=== PATIENT | female | born 1945 | race Caucasian/White ===

== ENCOUNTER 2020-06-07 09:00 | Outpatient (REF) | payer MEDICARE, SELFPAY ==
--- NOTE | 2020-06-07 | US_ITS ---
EXAMINATION: US RETROPERITONEAL LIMITED (AORTA) CLINICAL INFORMATION: AAA. COMPARISON: 02/24/2019 TECHNIQUE: Powell-scale, color Doppler and spectral Doppler evaluation of the abdominal aorta. FINDINGS: Mild to moderate echogenic epistatic plaque is seen, most pronounced in the infrarenal segment. The measurements of the aorta in maximum AP and transverse dimensions respectively are as follows: Proximal: 2.7 x 2.6 cm. Mid: 2.8 x 2.7 cm. Distal: 4.9 x 5.7 cm. (Previously 4.3 x 4.3 cm). Prominent noncalcified plaque is seen. The patent lumen measures up to 2.0 cm displaced to the right side. PSV: 33.0 cm/s. The measurements of the common iliac arteries in maximum AP and TRV dimensions are as follows: Right Common Iliac Artery: 0.71 cm AP: .73 TRV. Left Common Iliac Artery: 1.1 cm AP: 1.1 TRV. IMPRESSION: Interval increase in size of 5.7 cm (previously 4.3 cm) infrarenal abdominal aortic aneurysm with prominent noncalcified plaque and patent lumen measuring up to 2.0 cm without significant interval change.
== END 2020-06-07 09:01 | disposition home or self-care (01) ==
LOC: HO.HMGCX 09:00
PROVIDERS: PCP Internal Medicine; Visit Provider Surgery Vascular Surgery
DX: I71.4 Abdominal aortic aneurysm, without rupture (principal)
CPT/HCPCS: 76775

== ENCOUNTER → 2020-06-29 12:59 | Outpatient (BNVA) | payer MEDICARE, SELFPAY | PROVIDERS: PCP Internal Medicine; Visit Provider Surgery Vascular Surgery | DX: I71.4 Abdominal aortic aneurysm, without rupture (principal) | CPT/HCPCS: 99213 ==

== ENCOUNTER 2020-07-28 09:19 | Outpatient (REF) | payer MEDICARE, SELFPAY ==
[2020-07-28 11:49] LABS: Blood Urea Nitrogen 14 mg/dL (9-16); Estimated Glomerular Filt Rate > 60
== END 2020-07-28 09:20 | disposition home or self-care (01) ==
LOC: HO.HMGCLDS 09:19
PROVIDERS: PCP Internal Medicine; Visit Provider Surgery Vascular Surgery
DX: I71.4 Abdominal aortic aneurysm, without rupture (principal)
CPT/HCPCS: 82565; 84520

== ENCOUNTER 2020-08-05 13:40 | Outpatient (REF) | payer MEDICARE, SELFPAY ==
--- NOTE | 2020-08-05 13:44 | CT_ITS ---
STUDY PERFORMED: CTA ABDOMEN AND PELVIS WITHOUT AND WITH CONTRAST HISTORY: Abdominal aortic aneurysm. DESCRIPTION: Routine abdomen and pelvis CTA protocol with contrast was performed. 80 mL of Omnipaque 350 was administered. 3D POSTPROCESSING: Multiple 3-D angiographic images were processed from the initial data set by the interventional technologist at the modality workstation under concurrent physician supervision. DOSE LOWERING TECHNIQUES: This CT examination was performed using dose optimization techniques as appropriate, variously including the following: - Automated exposure control - Adjustment of mA and/or kV according to patient size (this includes techniques or standardized protocols for targeted exams where dose is matched to indication/reason for exam; i.e. extremities or head) - Use of iterative reconstruction technique DLP: 279 mGycm. COMPARISON: Aortic ultrasound 06/07/2020, CT abdomen and pelvis 07/25/2017. FINDINGS: VASCULAR: ABDOMINAL AORTA: The upper abdominal aorta is normal in caliber. There is an infrarenal abdominal aortic aneurysm measuring 5.5 x 4.8 cm in maximum transverse dimension. The aneurysm extends to the aortic bifurcation but does not involve the common iliac arteries. The aneurysm neck measures about 8 mm below the lowest (left) renal artery. About three quarters of the lumen is thrombosed. The degree of mural thrombus is similar to the prior exam. The maximum diameter of the aorta on the prior exam was 4.2 x 4.1 cm. RIGHT LOWER EXTREMITY: Mild to moderate atherosclerotic disease. LEFT LOWER EXTREMITY: Mild to moderate atherosclerotic disease. CELIOMESENTERIC ARTERIES: The celiac and superior mesenteric arteries are patent with mild atherosclerotic disease. The inferior mesenteric artery occluded at the origin off the thrombus in the aneurysm but then reconstitutes distally. RENAL ARTERIES: The right renal artery is patent with mild disease. The left renal artery is patent with mild disease. NONVASCULAR: Lung Bases: Stable 4 mm polygonal nodule at right lung base. Liver, Gallbladder and Biliary Tree: Small cyst in the left hepatic lobe. No biliary ductal dilatation. The gallbladder is unremarkable with no evidence of radiopaque gallstones, gallbladder wall thickening, or obvious pericholecystic inflammatory changes. Pancreas: Unremarkable. Spleen: Unremarkable. Adrenal Glands: Unremarkable. Kidneys and Ureters: Cortical thinning small bilateral cortical hypodensities are too small to characterize but most likely cysts. These are not significantly changed allowing for differences in enhancement. There is focal scarring in the lower right kidney that has evolved from the infarct seen on the prior study. Bladder: Unremarkable. Gastrointestinal Tract: Large hiatal hernia. Small bowel normal in caliber. Mild colonic diverticulosis. Abdominal Wall: No significant hernia is appreciated. Lymph Nodes: No adenopathy. Pelvic Viscera: Unremarkable. Osseous Structures: Degenerative changes in the spine. CT/CT angio abdomen pelvis IMPRESSION: Infrarenal abdominal aortic aneurysm measuring 5.5 x 4.8 cm increased from 4.2 x 4.1 cm on 07/25/2017. No periaortic hemorrhage.
[2020-08-05] MEDS: iohexoL 350 MG/ML 100 ML INFUS..BTL IV (14:33)
== END 2020-08-05 13:41 | disposition home or self-care (01) ==
LOC: HO.CT 13:40
PROVIDERS: Visit Provider Surgery Vascular Surgery
DX: I71.4 Abdominal aortic aneurysm, without rupture (principal)
CPT/HCPCS: 74174; Q9967

== ENCOUNTER → 2020-08-12 13:09 | Outpatient (BNVA) | payer MEDICARE, SELFPAY | PROVIDERS: PCP Internal Medicine; Visit Provider Surgery Vascular Surgery | DX: I71.4 Abdominal aortic aneurysm, without rupture (principal) | CPT/HCPCS: 99212 ==

== ENCOUNTER → 2020-08-17 12:54 | Outpatient (BNVA) | payer MEDICARE, SELFPAY | PROVIDERS: PCP Internal Medicine; Visit Provider Internal Medicine | DX: Z01.810 Encounter for preprocedural cardiovascular examination (principal); I25.10 Atherosclerotic heart disease of native coronary artery without angina pectoris; I71.4 Abdominal aortic aneurysm, without rupture; F17.200 Nicotine dependence, unspecified, uncomplicated | CPT/HCPCS: 93005; 99212 ==

== ENCOUNTER → 2020-08-20 07:22 | Outpatient (REF) | payer MEDICARE, SELFPAY ==
--- NOTE | 2020-08-20 07:28 | CA_ITS ---
Transthoracic Echocardiogram Patient (Last, First, Middle): Liza Montague, Gender: Female Date of : 1945 Age: 75 Procedure Date: 08/20/2020 Procedure Type: Transthoracic Echocardiogram Location: OP Height: 162.56 cm Weight: 69.4 kg BSA: 1.75 m2 Heart Rate: bpm BP: 102 / 68 mmHg Stock Sheets Cleaner Inspector: Shazia MD: Cheng Velasquez MD Symptoms: I25.10 - Atherosclerotic heart disease of lime coronary artery without angina pectoris Conclusions: - Normal left ventricular size, thickness, and systolic function. The visually estimated ejection fraction is between 60-65%. - E/E prime ratio is between 8 and 15 consistent with indeterminate filling pressures. - The basal inferior segment is hypokinetic. - Normal right ventricular cavity size and systolic function. - No significant valvular or pericardial pathology. Findings Left Ventricle Normal left ventricular size, thickness, and systolic function. The visually estimated ejection fraction is between 60-65%. There is evidence of regional wall motion abnormalities. Abnormal diastolic function is noted. Spectral Doppler is indicative of an impaired relaxation filling pattern. E/E prime ratio is between 8 and 15 consistent with indeterminate filling pressures. Wall Motion Rest Echo Findings The basal inferior segment is hypokinetic. Right Ventricle Normal right ventricular cavity size and systolic function. Atria The left atrium is normal in size. There is no evidence of interatrial shunt by color Doppler. The right atrium is normal in size. Aortic Valve There is a normal trileaflet aortic valve. There is mild thickening of the aortic valve. There is no aortic valve stenosis. There is no aortic valve regurgitation. Mitral Valve Normal mitral valve structure and function. There is no mitral valve regurgitation. There is no mitral valve stenosis. Pulmonic Valve Normal pulmonic valve structure and function. Tricuspid Valve Normal tricuspid valve structure and function. There is no tricuspid valve regurgitation. Tricuspid regurgitation envelope is inadequate for calculation of right ventricular systolic pressure. Normal right atrial pressure. Great Vessels All visible segments of the aorta are normal in size. The visualized portions of the pulmonary artery and branches are normal. Venous The inferior vena cava is normal in size and collapses greater than 50% with inspiration. Pericardium/Pleural There is no evidence of pericardial effusion. Prior Study Comparison Changes noted compared to prior study dated: 03/25/2019. EF 60-65% (was 50 55%), improvement in RWMA in the mid inferior and inferolateral rivera. Measurements 2D Linear Measurements RVIDd: 2.72 RVIDd Index: 1.55 IVSd: 0.81 0.6-0.9/0.6-1.0 cm LVIDd: 5.02 3.9-5.3/4.2-5.9 cm LVIDd Index: 2.87 2.4-3.2/2.2-3.1 cm/m2 LVIDs: 3.31 2.0-3.6 cm LVPWd: 0.79 0.7-1.1 cm Ao Root: 2.90 2.1-3.5 cm LA Diam: 4.20 2.7-3.8/3.0-4.0 cm LAIDs Index: 2.40 1.5-2.3 cm/m2 LV Mass: 170.57 67-162/88-224 g LV Mass Index: 97.47 43-95/49-115 g/m2 LVOT Diam: 2.30 3.0+(-)1.3 cm 2D Systolic Function EF 4C: 48.30 >55% EF 2C: 71.00 >55% EF BiP: 60.40 >55% Mitral Valve MV Pk E: 0.69 MV PK A: 1.03 MV Decel Time: 181.00 E/A: 0.70 E'Lateral: 5.55 E'Medial: 4.79 E/E' Med: 14.40 E/E' Lat: 12.50 Aortic Valve AoV Pk Walter: 1.55 AoV Mn Walter: 1.15 AoV VTI: 0.29 AoV Pk Grad: 10.00 Aov Mn Grad: 6.00 DENA Cont.VTI: 3.23 LVOT LVOT Pk Walter: 1.19 LVOT Mn Walter: 0.78 LVOT VTI: 0.22 LVOT Pk Grad: 6.00 LVOT Mn Grad: 3.00 LVOT Diam: 2.30 LVOT Area: 4.15 Diastolic Function MV Pk E: 0.69 MV Pk A: 1.03 E/A: 0.70 E'Medial: 4.79 E/E' Med: 14.40 E' Laterial: 5.55 E/E' Lat: 12.50 Tricuspid Valve TR Pk Walter: 2.56 TR Pk Grad: 26.00 RA Press: 3.00 Great Vessels Aorta Ao Root-2D: 2.90 2.0-3.7 cm Ao Asc: 3.10 2.1-3.4 cm Ao Arch: 2.30 Updated in Other Vendor System with Status of Final Marcell Roach MD electronically signed on 08/22/2020 1:18:53 PM with status of Final
--- NOTE | 2020-08-20 07:30 | CA_ITS ---
Acquisition Time: 2020-08-20 08:18:17 Total Exercise Time: 00:02:00 Test Indications: Z01.810 Medications: SEE CHART Protocol: LEXISCAN Max HR: 112 BPM 77% of Pred: 144 BPM Max BP: 120/070 mmHG Max Work Load: 1.0 METS Pharmacological stress test using Lexiscan while sitting. Pt denies any anginal sx. Feeling of lightheaded reversed with Aminophyline 75 mg IV. EKG with occ. PVC's, non-diagnostic for ischemia. Nuclear images to follow. Normotensive response to test. Test reviewed with Dr. Velasquez. Referred By: Cheng Velasquez Overread By: Hussein Fernandez
--- NOTE | 2020-08-20 08:16 | NM_ITS ---
Lexiscan Myocardial perfusion study Indication: Preoperative cardiac vascular evaluation Technique: The patient was brought in for a Lexiscan perfusion study on 08/20/2020 and was injected 0.4 mg of Lexiscan intravenously. Within a minute of this injection 25 mCi of sestamibi was given intravenously. Images were obtained using the SPECT gamma camera interlaced with the gating device. Images were obtained in supine position. Resting perfusion study was performed on 08/23/2020. Patient was administered 25 mCi of sestamibi intravenously at rest. Images were then obtained in supine position. Total DLP 54mGy-cm. Images were processed with the software and compared side to side in short axis, horizontal long axis and vertical long axis views. Findings: Raw acquisition was reviewed. The stress perfusion study showed diminished tracer uptake in the basal lateral and anterolateral wall. With CT attenuation correction, there is improvement which may indicate a component of soft tissue attenuation artifact. The gated study shows normal LV systolic function with calculated LVEF of 58%. LV cavity is normal in size. The gated study shows diminished basal lateral wall thickening. Resting study shows diminished tracer uptake in the basal lateral wall and anterolateral wall. Some improvement with CT attenuation correction which may indicate a component of soft tissue artifact .Gating at rest reveals ejection fraction at 46%. The findings are consistent with no clear reversible defects. Fixed defect in the basal lateral/anterolateral wall which may indicate prior infarct but could also be component of soft tissue attenuation artifact.. MT/NM cardiolite stress test Impression: 1. Myocardial perfusion imaging study shows no definitive ischemia noted. Fixed defect in the basal lateral/anterolateral wall which may indicate a prior infarct, but there is also improvement with CT attenuation correction and hence soft tissue attenuation artifact is also possible. 2. Gated LVEF is 58% during stress; 46% during rest. Correlate with echocardiogram. 3. Transient ischemic dilatation not present. EKG component of the test reported separately.
== END ==
LOC: HO.CARD 07:22
PROVIDERS: Visit Provider Internal Medicine
DX: Z01.810 Encounter for preprocedural cardiovascular examination (principal); I25.10 Atherosclerotic heart disease of native coronary artery without angina pectoris
CPT/HCPCS: 78452; 93017; 93306; A9500; J0280; J2785

== ENCOUNTER → 2020-08-24 09:24 | Outpatient (BNVA) | payer MEDICARE, SELFPAY | PROVIDERS: PCP Internal Medicine; Visit Provider Internal Medicine | DX: Z13.89 Encounter for screening for other disorder (principal) | CPT/HCPCS: Q3014 ==

== ENCOUNTER 2020-08-30 06:28 | Inpatient (IN) | payer MEDICARE, SELFPAY ==
--- NOTE | 2020-08-25 10:56 | P.CONAN_ITS ---
Documented by User: Dulce Saul 08/25/20 12:50 HPI - Anesthesia Eval Consult details Narrative: 75yo F for Aortic Endovascular Repair (AAA 5.5x4.8cm) Per cardiology, intermed to high risk. Based on these tests, she has coronary disease in different distributions. However, she has no active symptoms at this time. With regard to proceeding with the endovascular aortic repair, she will be at intermediate to high risk. Discussed in detail regarding juan-operative cardiac risks including myocardial infarction and she understands. May proceed as planned. Labs pending 08/25/20 [facility] Past Medical History Medical History AAA (abdominal aortic aneurysm) without rupture Atherosclerotic cardiovascular disease DDD (degenerative disc disease), cervical NSTEMI (non-ST elevated myocardial infarction) On beta kristen at home Osteoporosis Rheumatoid arthritis Seasonal allergies Smoking Family History Family History Father No problems noted. Mother No problems noted. Family history of problems with anesthesia: No Surgical History Surgical History H/O left wrist surgery History of hand surgery Hx of endoscopy History of Problems with Anesthesia: No Social History Social History Are you a primary health care social worker to a significant other at home: No Do you presently have visiting nurse or other home services: No Smoking Status: Current every day smoker Packs Per Day: 0.5 Cigarettes Per Day: 10.0 Years Smoked: 60 Smoked in Last 30 Days: Yes Patient Interested in Nicotine Replacement: No Patient Given Instructions on How to Stop Smoking: Yes Date Education Initiated: 08/25/20 Second Hand Smoke Exposure: No Use of substances other than those prescribed or required for medical reasons: No Have you been hit, kicked, punched, or otherwise hurt by someone within the past year? If so, by whom?: No [employer] Healthcare Practices: Episcopalian Advance Directives: No Advance Directives Information Provided: No Advance Directives on File: No Recently lost weight without trying: No Narrative Narrative: No recent illness. >4 mets with activity/ADLs/housework Meds Allergies Allergy/AdvReac Type Severity Reaction Status Date / Time alendronate sodium [Fosamax] AdvReac Unknown syncope Verified 08/25/20 12:10 Home Medications Medication Instructions Recorded Confirmed Type aspirin 81 mg tablet,delayed 81 mg PO DAILY 06/29/20 08/25/20 History release folic acid 1 mg tablet 1 mg PO DAILY 06/29/20 08/25/20 History omeprazole 20 mg capsule,delayed 20 mg PO DAILY 06/29/20 08/25/20 History release atorvastatin 80 mg tablet 80 mg PO DAILY 08/17/20 08/25/20 History metoprolol tartrate 25 mg tablet 25 mg PO BID 08/17/20 08/25/20 History methotrexate sodium 2.5 mg tablet 15 mg PO QWEEK 08/24/20 08/25/20 History tiotropium 2.5 mcg-olodaterol 2.5 2 puff PO DAILY 08/24/20 08/25/20 History mcg/actuation mist for inhalation calcium carbonate-vitamin D3 2 tab PO DAILY 08/25/20 08/25/20 History [Calcium 600 + D(3)] cholecalciferol (vitamin D3) 25 mcg PO DAILY 08/25/20 08/25/20 History [Vitamin D3] Exam Exam Date and Time: August 25, 2020 1056 Narrative Narrative: EKG 08/17/20: NSR @ 79, ? LAE ECHO 08/20/20: - Normal left ventricular size, thickness, and systolic function. The visually estimated ejection fraction is between 60-65%. - E/E prime ratio is between 8 and 15 consistent with indeterminate filling pressures. - The basal inferior segment is hypokinetic. - Normal right ventricular cavity size and systolic function. - No significant valvular or pericardial pathology. Cardiolite Stress Test 08/20/20: 1. Myocardial perfusion imaging study shows no definitive ischemia noted. Fixed defect in the basal lateral/anterolateral wall which may indicate a prior infarct, but there is also improvement with CT attenuation correction and hence soft tissue attenuation artifact is also possible. 2. Gated LVEF is 58% during stress; 46% during rest. Correlate with echocardiogram. 3. Transient ischemic dilatation not present. Airway Mallampati Class: II TM Dist: >3cm Neck ROM: Full Denture: Upper Partial: Lower Loose/Missing/Broken Teeth: No (Remaining lower teeth intact/stable) Heart: RRR Lungs: CTAB Assessment and Plan Assessment Anesthesia Assessment: Anesthesia Plan Discussed (Discussed high risk), Smoking Cess. Discussed and PAT Visit Documented by User: Bushra Carvajal 08/30/20 08:18 [facility] Past Medical History Medical History AAA (abdominal aortic aneurysm) without rupture Atherosclerotic cardiovascular disease DDD (degenerative disc disease), cervical NSTEMI (non-ST elevated myocardial infarction) On beta kristen at home Osteoporosis Rheumatoid arthritis Seasonal allergies Smoking Family History Family History Father No problems noted. Mother No problems noted. Surgical History Surgical History H/O left wrist surgery History of hand surgery Hx of endoscopy Social History Social History Are you a primary health care social worker to a significant other at home: No Do you presently have visiting nurse or other home services: No Smoking Status: Current every day smoker Packs Per Day: 0.5 Cigarettes Per Day: 10.0 Years Smoked: 60 Smoked in Last 30 Days: Yes Patient Interested in Nicotine Replacement: No Patient Given Instructions on How to Stop Smoking: Yes Date Education Initiated: 08/25/20 Second Hand Smoke Exposure: No Use of substances other than those prescribed or required for medical reasons: No Have you been hit, kicked, punched, or otherwise hurt by someone within the past year? If so, by whom?: No [employer] Healthcare Practices: Episcopalian Advance Directives: No Advance Directives Information Provided: No Advance Directives on File: No Recently lost weight without trying: No Meds Allergies Allergy/AdvReac Type Severity Reaction Status Date / Time alendronate sodium [Fosamax] AdvReac Unknown syncope Verified 08/25/20 12:10 Home Medications Medication Instructions Recorded Confirmed Type aspirin 81 mg tablet,delayed 81 mg PO DAILY 06/29/20 08/25/20 History release folic acid 1 mg tablet 1 mg PO DAILY 06/29/20 08/25/20 History omeprazole 20 mg capsule,delayed 20 mg PO DAILY 06/29/20 08/25/20 History release atorvastatin 80 mg tablet 80 mg PO DAILY 08/17/20 08/25/20 History metoprolol tartrate 25 mg tablet 25 mg PO BID 08/17/20 08/25/20 History methotrexate sodium 2.5 mg tablet 15 mg PO QWEEK 08/24/20 08/25/20 History tiotropium 2.5 mcg-olodaterol 2.5 2 puff PO DAILY 08/24/20 08/25/20 History mcg/actuation mist for inhalation calcium carbonate-vitamin D3 2 tab PO DAILY 08/25/20 08/25/20 History [Calcium 600 + D(3)] cholecalciferol (vitamin D3) 25 mcg PO DAILY 08/25/20 08/25/20 History [Vitamin D3] Assessment and Plan Assessment Anesthesia Assessment: Anesthesia Plan Discussed and Chart Reviewed Final Anesthetic Review NPO: Yes ASA Class: III Final Preanesthetic Review: Meds/Allgs Chart Reviewed, Consent Obtained/Reviewed and Anes Risks/Benef Reviewed Patient Risk: Intermediate Procedure Risk: Intermediate Anesthetic Plan Anesthetic Plan: GA Disposition: Standard PACU
[2020-08-25 12:15] VITALS: BP 136/82; PULSE 80; RESP 20; O2SAT 95; BMI 27.1
[2020-08-25 15:11] LABS: MANUAL DIFF FLAG NO
[2020-08-25 15:18] LABS: Basophils Percent Auto 0.3 % (0-2); Eosinophils Percent Auto 0.6 % (0-4); Hematocrit 44.7 % (37-47); Hemoglobin 14.2 g/dl (12.0-16.0); Imm Gran Abs Auto 0.01 X10*3/uL (0.00-0.03); Imm Gran Pct Auto 0.2 % (0.0-0.4); Lymphocytes Percent Auto 29.5 % (20-40); Mean Corpuscular HGB Conc 31.8 g/dl (31.0-35.0); Mean Corpuscular Hemoglobin 30.9 pg (27.0-33.0); Mean Corpuscular Volume 97.2 fL (80-98); Mean Platelet Volume 11.7 fL (9.4-12.3); Monocytes Absolute Auto 0.4 X10*3/uL (0.1-1.2); Monocytes Percent Auto 6.7 % (2-11); Neutrophils Absolute Auto 4.2 X10*3/uL (2.0-8.3); Neutrophils Percent Auto 62.7 % (45-73); Platelet Count 174 X10*3/uL (160-400); Red Cell Distribution Width 13.9 % (11.0-16.0); White Blood Count 6.6 X10*3/uL (4.8-10.8)
[2020-08-25 15:22] LABS: Prothrombin Time 12.4 SEC (10.8-13.0)
[2020-08-25 15:25] LABS: Partial Thromboplastin Time 28.7 SEC (24.1-38.0)
[2020-08-25 15:38] LABS: Anion Gap 11 (12-20); Blood Urea Nitrogen 14 mg/dL (9-16); Calcium 9.2 mg/dL (8.4-10.2); Carbon Dioxide 25 mmol/L (22-29); Chloride 104 mmol/L (96-108); Estimated Glomerular Filt Rate > 60; Glucose Fasting 88 mg/dL (60-99); Potassium 4.3 mmol/l (3.3-5.1); Sodium 136 mmol/L (135-145)
[2020-08-30] VITALS (26 sets, daily range): BP systolic 98–136; BP diastolic 45–74; PULSE 68–87; RESP 13–22; TEMP 36.3–37; O2SAT 92–99; BMI 29.3
--- NOTE | 2020-08-30 | ECG_ITS ---
Test Reason : POST OP Blood Pressure : / mmHG Vent. Rate : 073 BPM Atrial Rate : 073 BPM P-R Int : 156 ms QRS Dur : 076 ms QT Int : 376 ms P-R-T Axes : 038 029 045 degrees QTc Int : 414 ms Normal sinus rhythm with sinus arrhythmia Normal ECG When compared with ECG of 20-AUG-2018 12:41, Premature ventricular complexes are no longer Present Referred By: Kermit Goodwin Electronically Signed By:PAXTON DENNY
[2020-08-30 06:39] LABS: Prothrombin Time 12.4 SEC (10.8-13.0)
[2020-08-30 06:41] LABS: Partial Thromboplastin Time 28.5 SEC (24.1-38.0)
[2020-08-30 06:48] LABS: IDNOW Serial# 9DD0AD1C
[2020-08-30 06:49] LABS: COVID-19 Test Negative (Negative)
[2020-08-30 06:52] LABS: Anion Gap 13 (12-20); Blood Urea Nitrogen 15 mg/dL (9-16); Carbon Dioxide 23 mmol/L (22-29); Chloride 105 mmol/L (96-108); Creatinine Clr Calc Pharmacy 59.6; Estimated Glomerular Filt Rate > 60; Glucose Random 102 mg/dL (60-115); Potassium 4.3 mmol/l (3.3-5.1); Sodium 137 mmol/L (135-145)
[2020-08-30 06:53] LABS: Hematocrit 45.7 % (37-47); Hemoglobin 14.7 g/dl (12.0-16.0); Mean Corpuscular HGB Conc 32.2 g/dl (31.0-35.0); Mean Corpuscular Hemoglobin 31.4 pg (27.0-33.0); Mean Corpuscular Volume 97.6 fL (80-98); Mean Platelet Volume 10.9 fL (9.4-12.3); Platelet Count 181 X10*3/uL (160-400); Red Blood Count 4.68 X10*6/uL (4.20-5.50); White Blood Count 8.4 X10*3/uL (4.8-10.8)
[2020-08-30] MEDS: ceFAZolin Sodium/Dextrose,Iso 2 GM/50 ML PIGGYBACK IV ×2 (07:02→15:00)
[2020-08-30] MEDS: Lactated Ringers 1,000 ML 100 ML IVCONT (07:03)
--- NOTE | 2020-08-30 08:10 | P.CONAN_ITS ---
[facility] Past Medical History Medical History AAA (abdominal aortic aneurysm) without rupture Atherosclerotic cardiovascular disease DDD (degenerative disc disease), cervical NSTEMI (non-ST elevated myocardial infarction) On beta kristen at home Osteoporosis Rheumatoid arthritis Seasonal allergies Smoking Family History Family History Father No problems noted. Mother No problems noted. Surgical History Surgical History H/O left wrist surgery History of hand surgery Hx of endoscopy Social History Social History Are you a primary medicare insurance specialist to a significant other at home: No Do you presently have visiting nurse or other home services: No Smoking Status: Current every day smoker Packs Per Day: 0.5 Cigarettes Per Day: 10.0 Years Smoked: 60 Smoked in Last 30 Days: Yes Patient Interested in Nicotine Replacement: No Patient Given Instructions on How to Stop Smoking: Yes Date Education Initiated: 08/25/20 Second Hand Smoke Exposure: No Use of substances other than those prescribed or required for medical reasons: No Have you been hit, kicked, punched, or otherwise hurt by someone within the past year? If so, by whom?: No Sh[employer] Healthcare Practices: Sikhism Advance Directives: No Advance Directives Information Provided: No Advance Directives on File: No Recently lost weight without trying: No Meds Allergies Allergy/AdvReac Type Severity Reaction Status Date / Time alendronate sodium [Fosamax] AdvReac Unknown syncope Verified 08/25/20 12:10 Home Medications Medication Instructions Recorded Confirmed Type aspirin 81 mg tablet,delayed 81 mg PO DAILY 06/29/20 08/25/20 History release folic acid 1 mg tablet 1 mg PO DAILY 06/29/20 08/25/20 History omeprazole 20 mg capsule,delayed 20 mg PO DAILY 06/29/20 08/25/20 History release atorvastatin 80 mg tablet 80 mg PO DAILY 08/17/20 08/25/20 History metoprolol tartrate 25 mg tablet 25 mg PO BID 08/17/20 08/25/20 History methotrexate sodium 2.5 mg tablet 15 mg PO QWEEK 08/24/20 08/25/20 History tiotropium 2.5 mcg-olodaterol 2.5 2 puff PO DAILY 08/24/20 08/25/20 History mcg/actuation mist for inhalation calcium carbonate-vitamin D3 2 tab PO DAILY 08/25/20 08/25/20 History [Calcium 600 + D(3)] cholecalciferol (vitamin D3) 25 mcg PO DAILY 08/25/20 08/25/20 History [Vitamin D3] Exam Exam Date and Time: August 30, 2020 0810 Height,Weight and Vital Signs: Height 5 ft 3 in Weight 69.4 kg Last Vital Signs Temp 98.4 F 08/30/20 06:34 Pulse 82 08/30/20 06:34 Resp 16 08/30/20 06:34 BP 113/74 08/30/20 06:34 Pulse Ox 96 08/30/20 06:34 Pertinent Lab Results Pertinent Lab Results: Laboratory Tests 08/25/20 08/25/20 08/25/20 13:22 13:22 13:22 WBC 6.6 RBC 4.60 Hgb 14.2 Hct 44.7 MCV 97.2 MCH 30.9 MCHC 31.8 RDW 13.9 Plt Count 174 MPV 11.7 Immature Gran % (Auto) 0.2 Neut % (Auto) 62.7 Lymph % (Auto) 29.5 [place] % (Auto) 6.7 Eos % (Auto) 0.6 Baso % (Auto) 0.3 Lymph # (Auto) 2.0 [place] # (Auto) 0.4 Eos # (Auto) 0.0 Baso # (Auto) 0.0 Abs Immat Gran (auto) 0.01 Absolute Neuts (auto) 4.2 Absolute Nucleated RBC 0.000 Nucleated RBC % (auto) 0.0 PT 12.4 INR 1.0 APTT 28.7 Sodium 136 Potassium 4.3 Chloride 104 Carbon Dioxide 25 Anion Gap 11 L BUN 14 Creatinine 0.71 Estim Creat Clear Calc 63.0 Estimated GFR > 60 Random Glucose Fasting Glucose 88 Calcium 9.2 COVID-19 ([facility]ICHOLAS) COVID-19 Clin Com Blood Type Antibody Screen 08/25/20 08/30/20 08/30/20 13:22 06:15 06:23 WBC RBC Hgb Hct MCV MCH MCHC RDW Plt Count MPV Immature Gran % (Auto) Neut % (Auto) Lymph % (Auto) [place] % (Auto) Eos % (Auto) Baso % (Auto) Lymph # (Auto) [place] # (Auto) Eos # (Auto) Baso # (Auto) Abs Immat Gran (auto) Absolute Neuts (auto) Absolute Nucleated RBC Nucleated RBC % (auto) PT INR APTT Sodium 137 Potassium 4.3 Chloride 105 Carbon Dioxide 23 Anion Gap 13 BUN 15 Creatinine 0.75 Estim Creat Clear Calc 59.6 Estimated GFR > 60 Random Glucose 102 Fasting Glucose Calcium 9.0 COVID-19 (NICHOLAS) Negative COVID-19 Clin Com See Note Blood Type B Positive Antibody Screen NEGATIVE 08/30/20 08/30/20 06:24 06:24 WBC 8.4 RBC 4.68 Hgb 14.7 Hct 45.7 MCV 97.6 MCH 31.4 MCHC 32.2 RDW 14.0 Plt Count 181 MPV 10.9 Immature Gran % (Auto) Neut % (Auto) Lymph % (Auto) [place] % (Auto) Eos % (Auto) Baso % (Auto) Lymph # (Auto) [place] # (Auto) Eos # (Auto) Baso # (Auto) Abs Immat Gran (auto) Absolute Neuts (auto) Absolute Nucleated RBC 0.000 Nucleated RBC % (auto) 0.0 PT 12.4 INR 1.0 APTT 28.5 Sodium Potassium Chloride Carbon Dioxide Anion Gap BUN Creatinine Estim Creat Clear Calc Estimated GFR Random Glucose Fasting Glucose Calcium COVID-19 (NICHOLAS) COVID-19 Clin Com Blood Type Antibody Screen Airway Mallampati Class: I TM Dist: >3cm Neck ROM: Full Denture: Upper Partial: Lower Heart: RRR Lungs: CTA Assessment and Plan Assessment Anesthesia Assessment: Anesthesia Plan Discussed and Chart Reviewed Final Anesthetic Review NPO: Yes ASA Class: III Final Preanesthetic Review: Meds/Allgs Chart Reviewed and Consent Obtained/Reviewed Patient Risk: Intermediate Procedure Risk: Intermediate Anesthetic Plan Anesthetic Plan: GA Disposition: Inp. Admit - ICU
[2020-08-30] MEDS: Sodium Chloride 0.45 % 1,000 ML 80 ML IVCONT ×2 (12:05→23:50)
--- NOTE | 2020-08-30 13:15 | PM.CCPN ---
Subjective Subjective Date of Service: 08/30/20 Interval History: Awakening from sedation she is appropriate and oriented x3 and nonfocal neurologically Cardiac exam with normal S1 and normal S2 with no gallops murmurs no neck vein distension and has good bilateral carotid upstrokes Abdomen is benign soft with no distension and good bowel sounds and no organomegaly Chest with diminished bilateral breath sounds but no adventitious sounds Volume status appears normal and no follow-up hemoglobin but she has lost 750 cc of blood in the OR with the placement of the endovascular graft into the aorta Physical Exam Vital Signs: Vital Signs: Last Vital Signs Temp 97.8 F 08/30/20 12:00 Pulse 71 08/30/20 13:00 Resp 13 08/30/20 13:00 BP 112/52 L 08/30/20 13:00 Pulse Ox 92 08/30/20 13:00 Body Mass Index 29.3 Const: Other: As described above neurologically intact with intact cognitive function Normal cardiac exam Chest clear with no adventitious sounds Abdomen benign Skin intact with no acrocyanosis Objective Data Labs CBC & Chem 7: 08/30/20 06:24 08/30/20 06:23 Labs: Laboratory Results - last 24 hr 08/30/20 08/30/20 08/30/20 06:15 06:23 06:24 WBC 8.4 RBC 4.68 Hgb 14.7 Hct 45.7 MCV 97.6 MCH 31.4 MCHC 32.2 RDW 14.0 Plt Count 181 MPV 10.9 Absolute Nucleated RBC 0.000 Nucleated RBC % (auto) 0.0 PT INR APTT Sodium 137 Potassium 4.3 Chloride 105 Carbon Dioxide 23 Anion Gap 13 BUN 15 Creatinine 0.75 Estim Creat Clear Calc 59.6 Estimated GFR > 60 Random Glucose 102 Calcium 9.0 COVID-19 (NICHOLAS) Negative COVID-19 Clin Com See Note 08/30/20 06:24 WBC RBC Hgb Hct MCV MCH MCHC RDW Plt Count MPV Absolute Nucleated RBC Nucleated RBC % (auto) PT 12.4 INR 1.0 APTT 28.5 Sodium Potassium Chloride Carbon Dioxide Anion Gap BUN Creatinine Estim Creat Clear Calc Estimated GFR Random Glucose Calcium COVID-19 (NICHOLAS) COVID-19 Clin Com Progress Note: A&P Assessment and plan (1) Preoperative cardiovascular examination: Status: Acute (2) AAA (abdominal aortic aneurysm) without rupture: Status: Acute (3) Smoking: Status: Acute (4) Atherosclerotic cardiovascular disease: Problem details: Sees Dr Velasquez Status: Acute Assessment and Plan: Normal EKG with no ST-T changes in sinus rhythm and preoperative cardiac workup with 60% ejection fraction potentially mild inferobasilar hypokinesis and then if it fixed defect in the high lateral wall which could be in the distribution of either a diagonal branch or a high obtuse marginal branch with a fixed defect or could simply be artifact but she has no coronary symptoms and she has a [place] [employer] functional class 1 Time Spent With Patient Time: Total time spent is greater than 50% in coordination of care (as documented) at patient's floor/unit and/or counseling patient: Total time spent with greater than 50% in coordination of care (as documented) at patient's floor/unit and/or counseling patient:: 25
[2020-08-30] MEDS: 0.9 % Sodium Chloride Flush 3 ML SYRINGE IVFLUSH ×2 (15:08→23:49)
[2020-08-30 15:37] LABS: Hemoglobin 12.1 g/dl (12.0-16.0); Mean Corpuscular HGB Conc 31.8 g/dl (31.0-35.0); Mean Corpuscular Hemoglobin 31.3 pg (27.0-33.0); Mean Corpuscular Volume 98.4 fL (80-98); Mean Platelet Volume 10.8 fL (9.4-12.3); Platelet Count 117 X10*3/uL (160-400); Red Blood Count 3.86 X10*6/uL (4.20-5.50); White Blood Count 7.1 X10*3/uL (4.8-10.8)
[2020-08-30] MEDS: Metoprolol Tartrate 25 MG TABLET PO (21:23)
[2020-08-31] VITALS (16 sets, daily range): BP systolic 104–130; BP diastolic 48–67; PULSE 67–88; RESP 15–22; TEMP 36.4–36.6; O2SAT 92–96
[2020-08-31] MEDS: Morphine Sulfate 2 MG/ML CARTRIDGE IVPUSH (01:41)
[2020-08-31] MEDS: oxyCODONE HCl Immed Release 5 MG TABLET PO (02:11)
[2020-08-31] MEDS: Acetaminophen 325 MG TABLET 650 MG PO (02:11)
[2020-08-31 08:28] LABS: Basophils Percent Auto 0.1 % (0-2); Hematocrit 36.7 % (37-47)
[2020-08-31 08:30] LABS: Eosinophils Percent Auto 0.2 % (0-4); Hemoglobin 11.6 g/dl (12.0-16.0); Imm Gran Abs Auto 0.04 X10*3/uL (0.00-0.03); Imm Gran Pct Auto 0.4 % (0.0-0.4); Lymphocytes Absolute Auto 1.6 X10*3/uL (1.2-4.9); Lymphocytes Percent Auto 13.7 % (20-40); Mean Corpuscular HGB Conc 31.6 g/dl (31.0-35.0); Mean Corpuscular Hemoglobin 31.1 pg (27.0-33.0); Mean Corpuscular Volume 98.4 fL (80-98); Mean Platelet Volume 11.3 fL (9.4-12.3); Monocytes Absolute Auto 1.1 X10*3/uL (0.1-1.2); Monocytes Percent Auto 9.3 % (2-11); Neutrophils Absolute Auto 8.7 X10*3/uL (2.0-8.3); Neutrophils Percent Auto 76.3 % (45-73); Platelet Count 121 X10*3/uL (160-400); Red Blood Count 3.73 X10*6/uL (4.20-5.50); Red Cell Distribution Width 13.8 % (11.0-16.0); White Blood Count 11.4 X10*3/uL (4.8-10.8)
[2020-08-31 08:44] LABS: INTERNATIONAL NORM RATIO 1.1 (0.9-1.1); Prothrombin Time 12.7 SEC (10.8-13.0)
[2020-08-31 08:49] LABS: Anion Gap 10 (12-20); Blood Urea Nitrogen 12 mg/dL (9-16); Calcium 8.4 mg/dL (8.4-10.2); Carbon Dioxide 26 mmol/L (22-29); Chloride 106 mmol/L (96-108); Creatinine Clr Calc Pharmacy 69.4; Estimated Glomerular Filt Rate > 60; Glucose Random 106 mg/dL (60-115); Potassium 4.8 mmol/l (3.3-5.1); Sodium 137 mmol/L (135-145)
--- NOTE | 2020-08-31 10:44 | PM.CCPN ---
Subjective Subjective Date of Service: 08/31/20 Interval History: 75-year-old female status post endovascular grafting for an asymptomatic infrarenal abdominal aortic aneurysm without complication but 750 cc blood loss was noted hemoglobin falling from 14-12 and stable no EKG changes and no complaints of dyspnea nor chest discomfort Physical Exam Vital Signs: Vital Signs: Last Vital Signs Temp 97.5 F 08/31/20 08:00 Pulse 86 08/31/20 10:00 Resp 21 H 08/31/20 10:00 BP 106/64 08/31/20 10:00 Pulse Ox 93 08/31/20 10:00 Body Mass Index 29.3 Const: Other: Awake alert and oriented x3 Neurologic nonfocal Cardiac exam normal S1 and S2 no gallops or murmurs and no neck vein distension and good bilateral carotid upstrokes Lungs clear Cardiac it as above Abdomen benign with good bowel sounds soft nontender no organomegaly Skin intact but no acrocyanosis Objective Data Labs CBC & Chem 7: 08/31/20 08:11 08/31/20 08:11 Labs: Laboratory Results - last 24 hr 08/30/20 08/31/20 08/31/20 15:23 08:11 08:11 WBC 7.1 11.4 H RBC 3.86 L 3.73 L Hgb 12.1 11.6 L Hct 38.0 36.7 L MCV 98.4 H 98.4 H MCH 31.3 31.1 MCHC 31.8 31.6 RDW 14.0 13.8 Plt Count 117 L D 121 L MPV 10.8 11.3 Immature Gran % (Auto) 0.4 Neut % (Auto) 76.3 H Lymph % (Auto) 13.7 L [place] % (Auto) 9.3 Eos % (Auto) 0.2 Baso % (Auto) 0.1 Lymph # (Auto) 1.6 [place] # (Auto) 1.1 Eos # (Auto) 0.0 Baso # (Auto) 0.0 Abs Immat Gran (auto) 0.04 H Absolute Neuts (auto) 8.7 H Absolute Nucleated RBC 0.000 0.000 Nucleated RBC % (auto) 0.0 0.0 PT 12.7 INR 1.1 Sodium Potassium Chloride Carbon Dioxide Anion Gap BUN Creatinine Estim Creat Clear Calc Estimated GFR Random Glucose Calcium 08/31/20 08:11 WBC RBC Hgb Hct MCV MCH MCHC RDW Plt Count MPV Immature Gran % (Auto) Neut % (Auto) Lymph % (Auto) [place] % (Auto) Eos % (Auto) Baso % (Auto) Lymph # (Auto) [place] # (Auto) Eos # (Auto) Baso # (Auto) Abs Immat Gran (auto) Absolute Neuts (auto) Absolute Nucleated RBC Nucleated RBC % (auto) PT INR Sodium 137 Potassium 4.8 Chloride 106 Carbon Dioxide 26 Anion Gap 10 L BUN 12 Creatinine 0.67 Estim Creat Clear Calc 69.4 Estimated GFR > 60 Random Glucose 106 Calcium 8.4 D Progress Note: A&P Assessment and plan (1) Preoperative cardiovascular examination: Status: Acute (2) AAA (abdominal aortic aneurysm) without rupture: Status: Acute (3) Smoking: Status: Acute (4) Atherosclerotic cardiovascular disease: Problem details: Sees Dr Velasquez Status: Acute Assessment and Plan: Uneventful endovascular grafting of abdominal aortic aneurysm and appears to be ready for discharge Time Spent With Patient Time: Total time spent is greater than 50% in coordination of care (as documented) at patient's floor/unit and/or counseling patient: Total time spent with greater than 50% in coordination of care (as documented) at patient's floor/unit and/or counseling patient:: 20
[2020-08-31] MEDS: 0.9 % Sodium Chloride Flush 3 ML SYRINGE IVFLUSH (10:57)
[2020-08-31] MEDS: Metoprolol Tartrate 25 MG TABLET PO (11:01)
[2020-08-31] MEDS: Aspirin Enteric Coated 81 MG TABLET.DR PO (11:02)
[2020-08-31] MEDS: Omeprazole 20 MG CAPSULE.DR PO (11:02)
[2020-08-31] MEDS: Atorvastatin Calcium 80 MG TABLET PO (11:02)
--- NOTE | 2020-08-31 11:22 | MHC.CM.PN ---
Met with pt, s/p endovascular graft into aorta, AAA non-ruptured. Pt A&Ox3. Ambulated in nurses station. Pt states she feels well. Denies pain. Tells me her son, Alvaro Montague ([phone]) is her HCP and she has a copy at home. Thinks there is a copy at her PCP. PCP, Dr. Bocanegra, called. Will fax copy of HCP if they have it. Pt lives alone and has supports from her sons, Raulito and Alvaro, as well as neighbors. Pt tells me she has no services and is independent at home. Still drives. IMM reviewed and signed. D/C plan is home without services. Pt is in agreement with plan. Will continue to follow
--- NOTE | 2020-08-31 14:46 | PM.DS ---
DS: Providers Provider Date of admission: 08/30/20 06:28 Primary care physician: Annie Bocanegra MD DS: Diagnosis Discharge Diagnosis (1) Preoperative cardiovascular examination: Status: Acute (2) AAA (abdominal aortic aneurysm) without rupture: Status: Acute (3) Smoking: Status: Acute (4) Atherosclerotic cardiovascular disease: Status: Acute Problem details: Sees Dr Velasquez DS: Medications Discharge Medications Home Medications: Home Medications Medication Instructions Recorded Confirmed aspirin 81 mg tablet,delayed 81 mg PO DAILY 06/29/20 08/25/20 release folic acid 1 mg tablet 1 mg PO DAILY 06/29/20 08/25/20 omeprazole 20 mg capsule,delayed 20 mg PO DAILY 06/29/20 08/25/20 release atorvastatin 80 mg tablet 80 mg PO DAILY 08/17/20 08/25/20 metoprolol tartrate 25 mg tablet 25 mg PO BID 08/17/20 08/25/20 methotrexate sodium 2.5 mg tablet 15 mg PO QWEEK 08/24/20 08/25/20 tiotropium 2.5 mcg-olodaterol 2.5 2 puff PO DAILY 08/24/20 08/25/20 mcg/actuation mist for inhalation calcium carbonate-vitamin D3 2 tab PO DAILY 08/25/20 08/25/20 [Calcium 600 + D(3)] cholecalciferol (vitamin D3) 25 mcg PO DAILY 08/25/20 08/25/20 [Vitamin D3] Previous Rx's Medication Instructions Recorded oxycodone-acetaminophen [Percocet] 1 tab PO Q8H PRN #10 tab 08/31/20 DS: Summary Time Spent with Patient Time attestation: Total time spent providing and/or coordinating discharge services: Physical Exam Vital Signs: Vital Signs: Last Vital Signs Temp 97.9 F 08/31/20 12:00 Pulse 75 08/31/20 12:00 Resp 20 08/31/20 12:00 BP 111/65 08/31/20 12:00 Pulse Ox 93 08/31/20 12:00 Body Mass Index 29.3 DS: Data Data Completed and Pending Labs on day of discharge: 08/25/20 13:22 Type and Screen Routine Basic Metabolic Panel Fasting Routine Complete Blood Count Auto Diff Routine Partial Thromboplastin Time Routine Prothrombin Time INR Routine 08/30/20 ECG 12 lead EKG Routine 08/30/20 06:12 ceFAZolin Sodium/Dextrose,Iso [Ancef] 2 gm in 50 ml IV PREOP 08/30/20 06:12 Surgical prep, hair removal PREOP 08/30/20 06:13 Albuterol Sulfate (0.083%) [Ventolin (0.083%)] 2.5 mg INHALE ONCE PRN 08/30/20 06:15 COVID-19 ID NOW ([place]) Stat Lactated Ringers [Lr] 1,000 ml IVCONT 100 mls/hr 08/30/20 06:23 Basic Metabolic Panel Stat 08/30/20 06:24 Complete Blood Count no Diff Stat Partial Thromboplastin Time Stat Prothrombin Time INR Stat 08/30/20 06:59 ceFAZolin Sodium/Dextrose,Iso [Ancef] 2 gm in 50 ml .ROUTE As directed 08/30/20 07:00 Heparin Sodium,Porcine 1,000 unit IV .STK-MED ONE 08/30/20 07:01 Bupivacaine MPF 0.5 % [Sensorcaine MPF 0.5% 30 ML] 30 ml .ROUTE .STK-MED ONE Heparin Sodium,Porcine 10,000 unit IVPUSH .STK-MED ONE Lidocaine HCl 1 % MPF [Xylocaine 1 % MPF] 5 ml .ROUTE .STK-MED ONE Protamine Sulfate 50 mg IV .STK-MED ONE 08/30/20 07:03 FL guidance in OR Routine 08/30/20 07:08 Nitroglycerin/D5W 100 mg in 250 ml IVCONT As directed 08/30/20 07:10 iohexoL 300 MG/ML [Omnipaque 300 MG/ML] 100 ml IV .STK-MED ONE 08/30/20 07:11 Lidocaine HCl 2 % MPF [Xylocaine 2 % MPF] 5 ml .ROUTE .STK-MED ONE Midazolam HCl/PF [Versed] 2 mg .ROUTE .STK-MED ONE Rocuronium [place] [Zemuron] 100 mg IV .STK-MED ONE fentaNYL citrate/PF [Sublimaze] 50 mcg .ROUTE .STK-MED ONE propofoL [Diprivan] 200 mg IVPUSH .STK-MED ONE 08/30/20 07:15 Heparin Sodium (Porcine)/NS/PF 2,000 unit in 1,000 ml IV As directed 08/30/20 07:18 Phenylephrine HCL 1,000 mcg IVPUSH .STK-MED ONE ePHEDrine sulfate 50 mg .ROUTE .STK-MED ONE 08/30/20 07:46 Phenylephrine HCL 1,000 mcg IVPUSH .STK-MED ONE 08/30/20 07:48 fentaNYL citrate/PF [Sublimaze] 50 mcg .ROUTE .STK-MED ONE 08/30/20 08:18 Continuous pulse oximetry CONT Oxygen administration Simple Mask 6 lpm Vital Signs Q1H Vital Signs Q5MIN Acetaminophen [Tylenol] 650 mg PO ONCE PRN Albuterol Sulfate (0.083%) [Ventolin (0.083%)] 2.5 mg INHALE ONCE PRN fentaNYL citrate/PF [Sublimaze] 25 mcg IVPUSH Q5M PRN fentaNYL citrate/PF [Sublimaze] 50 mcg IVPUSH Q5M PRN oxyCODONE HCl Immed Release [Roxicodone] 5 mg PO ONCE PRN 08/30/20 08:25 dexAMETHasone sod phosphate [Decadron] 4 mg .ROUTE .STK-MED ONE ondansetron HCL [Zofran] 4 mg .ROUTE .STK-MED ONE 08/30/20 08:36 Phenylephrine HCL 1,000 mcg IVPUSH .STK-MED ONE 08/30/20 09:08 Phenylephrine HCL 1,000 mcg IVPUSH .STK-MED ONE 08/30/20 09:52 Sugammadex Sodium [Bridion] 200 mg IVPUSH .STK-MED ONE 08/30/20 10:38 Transfer Order Routine 08/30/20 10:43 Cont. Telemetry w/Vital Sign limit ICU Q4HR Incentive Spirometry NOW Vital Signs Q4H Acetaminophen [Tylenol] 650 mg PO Q6H PRN Morphine Sulfate 2 mg IVPUSH Q4H PRN oxyCODONE HCl Immed Release [Roxicodone] 5 mg PO Q4H PRN 08/30/20 10:45 Sodium Chloride 0.45 % 1,000 ml IVCONT 80 mls/hr 08/30/20 12:23 RT Smoking Initial Cessation ONCE 08/30/20 13:20 EKG Documentation DIRECTED 08/30/20 13:40 ceFAZolin Sodium/Dextrose,Iso [Ancef] 2 gm in 50 ml IV POSTOP@1340 08/30/20 15:23 Complete Blood Count no Diff Routine 08/30/20 16:00 0.9 % Sodium Chloride Flush [NS Flush] 3 ml IVFLUSH QSHIFT 08/30/20 17:46 Code Status Routine 08/30/20 21:00 Metoprolol Tartrate [Lopressor] 25 mg PO BID 08/31/20 08:11 Basic Metabolic Panel DAILY Complete Blood Count Auto Diff DAILY Prothrombin Time INR DAILY 08/31/20 09:00 Aspirin Enteric Coated [Ecotrin] 81 mg PO DAILY Atorvastatin Calcium [Lipitor] 80 mg PO DAILY Omeprazole [PriLOSEC] 20 mg PO DAILY tiotropium-olodaterol 2 puff PO DAILY Laboratory Last Values WBC 11.4 X10*3/uL (4.8-10.8) H 08/31/20 08:11 RBC 3.73 X10*6/uL (4.20-5.50) L 08/31/20 08:11 Hgb 11.6 g/dl (12.0-16.0) L 08/31/20 08:11 Hct 36.7 % (37-47) L 08/31/20 08:11 MCV 98.4 fL (80-98) H 08/31/20 08:11 MCH 31.1 pg (27.0-33.0) 08/31/20 08:11 MCHC 31.6 g/dl (31.0-35.0) 08/31/20 08:11 RDW 13.8 % (11.0-16.0) 08/31/20 08:11 Plt Count 121 X10*3/uL (160-400) L 08/31/20 08:11 MPV 11.3 fL (9.4-12.3) 08/31/20 08:11 Immature Gran % (Auto) 0.4 % (0.0-0.4) 08/31/20 08:11 Neut % (Auto) 76.3 % (45-73) H 08/31/20 08:11 Lymph % (Auto) 13.7 % (20-40) L 08/31/20 08:11 [place] % (Auto) 9.3 % (2-11) 08/31/20 08:11 Eos % (Auto) 0.2 % (0-4) 08/31/20 08:11 Baso % (Auto) 0.1 % (0-2) 08/31/20 08:11 Lymph # (Auto) 1.6 X10*3/uL (1.2-4.9) 08/31/20 08:11 [place] # (Auto) 1.1 X10*3/uL (0.1-1.2) 08/31/20 08:11 Eos # (Auto) 0.0 X10*3/uL (0.0-0.4) 08/31/20 08:11 Baso # (Auto) 0.0 X10*3/uL (0.0-0.2) 08/31/20 08:11 Abs Immat Gran (auto) 0.04 X10*3/uL (0.00-0.03) H 08/31/20 08:11 Absolute Neuts (auto) 8.7 X10*3/uL (2.0-8.3) H 08/31/20 08:11 Absolute Nucleated RBC 0.000 X10*3/uL (0.0-0.012) 08/31/20 08:11 Nucleated RBC % (auto) 0.0 /100WBC (0.0-0.2) 08/31/20 08:11 PT 12.7 SEC (10.8-13.0) 08/31/20 08:11 INR 1.1 (0.9-1.1) 08/31/20 08:11 APTT 28.5 SEC (24.1-38.0) 08/30/20 06:24 Sodium 137 mmol/L (135-145) 08/31/20 08:11 Potassium 4.8 mmol/l (3.3-5.1) 08/31/20 08:11 Chloride 106 mmol/L (96-108) 08/31/20 08:11 Carbon Dioxide 26 mmol/L (22-29) 08/31/20 08:11 Anion Gap 10 (12-20) L 08/31/20 08:11 BUN 12 mg/dL (9-16) 08/31/20 08:11 Creatinine 0.67 mg/dL (0.5-1.4) 08/31/20 08:11 Estim Creat Clear Calc 69.4 08/31/20 08:11 Estimated GFR > 60 08/31/20 08:11 Random Glucose 106 mg/dL (60-115) 08/31/20 08:11 Fasting Glucose 88 mg/dL (60-99) 08/25/20 13:22 Calcium 8.4 mg/dL (8.4-10.2) D 08/31/20 08:11 COVID-19 ([facility]ICHOLAS) Negative (Negative) 08/30/20 06:15 COVID-19 Clin Com See Note 08/30/20 06:15 Blood Type B Positive 08/25/20 13:22 Antibody Screen NEGATIVE 08/25/20 13:22 Discharge Plan Discharge Anticipated Discharge Date/Time: 08/31/20 12:55 Patient Disposition: Home, Self-Care Referrals: Annie Bocanegra MD [Primary Care Provider] - Discharge Medications: New oxycodone-acetaminophen [Percocet] 5-325 mg tablet 1 tab PO Q8H PRN (Reason: pain (scale score 7-10)) Qty: 10 RF: 0 Continued calcium carbonate-vitamin D3 [Calcium 600 + D(3)] 600 mg(1,500mg) -200 unit Tablet 2 tab PO DAILY RF: 0 cholecalciferol (vitamin D3) [Vitamin D3] 25 mcg (1,000 unit) Capsule 25 mcg PO DAILY RF: 0 aspirin 81 mg tablet,delayed release (DR/EC) 81 mg PO DAILY RF: 0 omeprazole 20 mg capsule,delayed release(DR/EC) 20 mg PO DAILY RF: 0 folic acid 1 mg tablet 1 mg PO DAILY RF: 0 metoprolol tartrate 25 mg tablet 25 mg PO BID RF: 0 atorvastatin 80 mg tablet 80 mg PO DAILY RF: 0 tiotropium-olodaterol 2.5-2.5 mcg/actuation mist 2 puff PO DAILY RF: 0 methotrexate sodium 2.5 mg tablet 15 mg PO QWEEK RF: 0 Discharge Orders: Discharge Order (Routine); Ordered 08/31/20 Ordered By: Jose Zapata Diet: advance to usual diet Activity on Discharge: As tolerated Discharge Date/Time: 08/31/20 14:00 Visit Report Forms: Patient Portal Discharge page Care Plan Goals: s/p endovascular aortic aneurysm repair Health Concerns: AAA Plan of Treatment: surveilence f/u with CT
--- NOTE | 2020-09-14 11:23 | OP_ITS ---
SURGEON: Jose Zapata MD INDICATIONS: Liza is a 75-year-old female, who had been surveilled for some time and was found to have an enlarged abdominal aortic aneurysm. She now presents for endovascular repair. Risks, benefits, and complications were discussed in detail with the patient. The patient understood and consented. PREOPERATIVE DIAGNOSIS: POSTOPERATIVE DIAGNOSIS: PROCEDURE PERFORMED: ESTIMATED BLOOD LOSS: 250 mL. COMPLICATIONS: ANESTHESIA: General. ASSISTANTS: Dr. Irwin. SPECIMENS: None. PREPROCEDURE DIAGNOSIS: Abdominal aortic aneurysm without rupture. POSTPROCEDURE DIAGNOSIS: Abdominal aortic aneurysm without rupture. PROCEDURES PERFORMED: 1. Open left common femoral exposure. 2. Placement of aortic endovascular graft (Endologix AFX). 3. Plasty of left common iliac and external iliac. 4. Plasty of right common iliac. 5. Right common femoral StarClose closure device placement. DESCRIPTION OF PROCEDURE: The patient was brought to the operating room, prior to which a time-out was taken for patient identification and site verification. Cutdown was performed on the left common femoral artery through a transverse femoral incision. We were then able to isolate out the common femoral, superficial femoral and profunda femoris with silastic loops. On the right side with ultrasound guidance, right common femoral puncture was undertaken with micropuncture needle, wire, and subsequent 4-Kisw[place]ili sheath. Flush catheter was brought up to the level of the aorta. Angiogram was performed to measure vessel length and characterize the anatomy and its topography. Once this was done, this was exchanged out for a Lunderquist stiff wire on the left side. We loaded the AFX2 main body A28-110/[id number] onto the stiff wire and advanced the contralateral wire up through the 19-[place] outer diameter AFX introducer sheath using guidewire. Contralateral wire snare and pulled out the contra side. AFX2 device was then transferred into the AFX introducer sheath and advanced under fluoro guidance until distal limbs were above the aortic bifurcation releasing the limbs of the graft. Pulled the entire system down onto the aortic bifurcation, deployed the main body of the graft by pulling on the control cord handle. We deployed the contralateral limb through the right side by pulling down the yellow limb cover advancing the pigtail catheter over the contra wire until the tip was in contact with the wire lock, held the pigtail catheter in place and pulled the contra wire to release from the wire lock, deployed the ipsilateral limb by pinning the inner core and retracting the AFX introducer sheath. We then had to plasty the left common iliac and external iliac with a 10 x 40 balloon and on the right common iliac, we plastied this with a 10 x 40 balloon and held down the common iliac. We then advanced and deployed the A34-34/C80-O20 infrarenal extension and performed an angiogram to visualize the renal arteries. We removed the extension delivery device through the AFX introducer sheath. We then performed a final angiogram, removed catheters and sheaths. The right side, StarClose closure device was used. On the left side, the arteriotomy on the left common femoral was closed using a 6-0 Prolene suture. SNoW was used for hemostasis and we closed the incision in multiple layers using 2-0 Vicryl, 3-0 Vicryl, and finally skin with a 4-0 Monocryl. Dermabond was used as a sterile dressing. At the end of the case, sponge, needle, and instrument counts were correct. The patient tolerated the procedure well. INTERPRETATION OF FILMS: 1. Aortogram demonstrated appropriate take-off the renals, well identified aortic aneurysm. 2. Postprocedure angiogram demonstrated appropriate placement device. No evidence of significant endoleak. CONCLUSION: Successful deployment of aortic endograft. DRAINS: None. MD MATTHEW Coto/KINGA / [id number] MTDGregoria
== END 2020-08-31 14:00 | disposition home or self-care (01) | DRG 269 ==
LOC: HO.SSSA 06:29 → HO.ICU 10:44
PROVIDERS: Internal Medicine Cardiovascular Disease; Nurse Practitioner; Admitting Provider Surgery Vascular Surgery; PCP Internal Medicine; Visit Provider Surgery Vascular Surgery
PROC: 04V03ZZ Restriction of Abdominal Aorta, Percutaneous Approach (ICD-10-PCS; principal; 2020-08-30 07:30)
DX: I71.4 Abdominal aortic aneurysm, without rupture (principal); I25.2 Old myocardial infarction; F17.210 Nicotine dependence, cigarettes, uncomplicated; Z71.6 Tobacco abuse counseling; I25.10 Atherosclerotic heart disease of native coronary artery without angina pectoris; Z20.828 Contact with and (suspected) exposure to other viral communicable diseases; Z79.899 Other long term (current) drug therapy
CPT/HCPCS: 36415; 80048; 85025; 85027; 85610; 85730; 86850; 86900; 86901; 87635; 93005; C1725; C1760; C1769; C1887; C1894; J0690; J1100; J2250; J2270; J2370; J2405; J3010; Q9967

== ENCOUNTER → 2020-09-14 10:08 | Outpatient (BNVA) | payer MEDICARE, SELFPAY | PROVIDERS: PCP Internal Medicine; Visit Provider Surgery Vascular Surgery | DX: I71.4 Abdominal aortic aneurysm, without rupture (principal) | CPT/HCPCS: 99212 ==

== ENCOUNTER → 2020-10-20 12:50 | Outpatient (BNVA) | payer MEDICARE, SELFPAY | PROVIDERS: PCP Internal Medicine; Visit Provider Internal Medicine | DX: I25.10 Atherosclerotic heart disease of native coronary artery without angina pectoris (principal); I71.4 Abdominal aortic aneurysm, without rupture; F17.200 Nicotine dependence, unspecified, uncomplicated | CPT/HCPCS: 99212 ==

== ENCOUNTER 2020-11-30 13:23 | Outpatient (REF) | payer MEDICARE, SELFPAY ==
[2020-11-30 14:16] LABS: Blood Urea Nitrogen 14 mg/dL (9-16); Estimated Glomerular Filt Rate > 60
== END 2020-11-30 13:24 | disposition home or self-care (01) ==
LOC: HO.HMGCLDS 13:23
PROVIDERS: PCP Internal Medicine; Visit Provider Surgery Vascular Surgery
DX: I71.4 Abdominal aortic aneurysm, without rupture (principal)
CPT/HCPCS: 36415; 82565; 84520

== ENCOUNTER 2020-12-07 08:54 | Outpatient (REF) | payer MEDICARE, SELFPAY ==
--- NOTE | ~2020-12-07 | CT_ITS ---
STUDY PERFORMED: CTA ABDOMEN AND PELVIS WITHOUT AND WITH IV CONTRAST HISTORY: Follow-up of enlarging infrarenal abdominal aortic aneurysm subsequently treated with a stent graft. DESCRIPTION: Routine abdomen and pelvis CTA protocol with contrast was performed. 80 mL of Omnipaque 350 was administered. 3D POSTPROCESSING: Multiple 3-D angiographic images were processed from the initial data set by the mechatronics technologist at the modality workstation under concurrent physician supervision. DOSE LOWERING TECHNIQUES: This CT examination was performed using dose optimization techniques as appropriate, variously including the following: - Automated exposure control - Adjustment of mA and/or kV according to patient size (this includes techniques or standardized protocols for targeted exams where dose is matched to indication/reason for exam; i.e. extremities or head) - Use of iterative reconstruction technique DLP: 448 mGycm. COMPARISON: Aortic ultrasound 06/07/2020, CT abdomen and pelvis 07/25/2017 and 08/10/2020. FINDINGS: VASCULAR: ABDOMINAL AORTA: There is a new stent graft in place with suprarenal struts extending down into both mid common iliac arteries appearing to represent an Endologix AFX modular, bifurcated stent graft. The stent graft appears to be intact and patent. No endoleak is identified. The AAA sac is slightly smaller in size currently measuring 5.1 x 5.1 cm in maximum diameter compared to 5.5 x 4.8 cm previously. RIGHT LOWER EXTREMITY: Mild to moderate atherosclerotic disease of the common and external iliac arteries. The proximal femoral arteries are patent. LEFT LOWER EXTREMITY: Mild to moderate atherosclerotic disease of the common and external iliac arteries. The proximal femoral arteries are patent. CELIOMESENTERIC ARTERIES: The celiac and superior mesenteric arteries are patent with mild atherosclerotic disease. The inferior mesenteric artery is occluded proximally but then reconstitutes distally via SMA collaterals. RENAL ARTERIES: The right renal artery is patent with mild disease. The left renal artery is crossed by the uncovered stent struts but patent with mild disease. NONVASCULAR: Lung Bases: Stable 4 mm polygonal nodule at right lateral lung base, best seen on image 52/704, series 9. Liver, Gallbladder and Biliary Tree: Stable small cyst in the left hepatic lobe. No biliary ductal dilatation. The gallbladder is unremarkable with no evidence of radiopaque gallstones, gallbladder wall thickening, or obvious pericholecystic inflammatory changes. Pancreas: Unremarkable. Spleen: Unremarkable. Adrenal Glands: Unremarkable. Kidneys and Ureters: The kidneys are normal in size with appropriate enhancement. There is stable focal scarring in the lower right kidney. Bladder: Unremarkable. Gastrointestinal Tract: Large hiatal hernia. Small bowel normal in caliber. Mild colonic diverticulosis without evidence of active diverticulitis. Abdominal Wall: No significant hernia is appreciated. Lymph Nodes: No adenopathy. Pelvic Viscera: Atrophic uterus. No evidence for pelvic mass, focal collection, or free fluid. Osseous Structures: Osteosclerosis of T11 and T12, unchanged multiple superior endplate compressions including L1, L2, and L3. Advanced facet joint arthropathy L4-L5 and L5-S1. No suspicious focal osteolytic or osteoblastic lesions. CT/CT angio abdomen pelvis IMPRESSION: Status post stent graft repair of an infrarenal abdominal aortic aneurysm without evidence of complications. Specifically, there is no evidence of an endoleak. The AAA sac is stable or slightly decreasing in size.
== END 2020-12-07 08:55 | disposition home or self-care (01) ==
LOC: HO.CT 08:54
PROVIDERS: PCP Internal Medicine; Visit Provider Surgery Vascular Surgery
DX: I71.4 Abdominal aortic aneurysm, without rupture (principal)
CPT/HCPCS: 74174; Q9967

== ENCOUNTER → 2020-12-17 10:24 | Outpatient (BNVA) | payer MEDICARE, SELFPAY | PROVIDERS: PCP Internal Medicine; Visit Provider Surgery Vascular Surgery | DX: I71.4 Abdominal aortic aneurysm, without rupture (principal) | CPT/HCPCS: Q3014 ==

== ENCOUNTER 2021-06-03 11:49 | Outpatient (REF) | payer MEDICARE, SELFPAY ==
[2021-06-03 14:18] LABS: Blood Urea Nitrogen 15 mg/dL (9-16); Estimated Glomerular Filt Rate > 60
== END 2021-06-03 11:50 | disposition home or self-care (01) ==
LOC: HO.HMGCLDS 11:49
PROVIDERS: PCP Internal Medicine; Visit Provider Surgery Vascular Surgery
DX: I71.4 Abdominal aortic aneurysm, without rupture (principal)
CPT/HCPCS: 36415; 82565; 84520

== ENCOUNTER 2021-06-09 14:39 | Outpatient (REF) | payer MEDICARE, SELFPAY ==
--- NOTE | ~2021-06-09 | CT_ITS ---
EXAMINATION: CT ANGIOGRAM ABDOMEN AND PELVIS CLINICAL INFORMATION: Abdominal aortic aneurysm without rupture. COMPARISON: CTA 12/07/2020 TECHNIQUE: Multiple axial images were obtained through the abdomen and pelvis following the administration of 80 mL of Omnipaque 350 intravenous contrast. Images were reviewed on a dedicated 3-D workstation. This CT examination was performed using dose optimization techniques as appropriate, variously including the following: *Automated exposure control *Adjustment of mA and/or kV according to patient size (this includes techniques or standardized protocols for targeted exams where dose is matched to indication/reason for exam; i.e. extremities or head) *Use of iterative reconstruction technique DLP: 249 mGy-cm FINDINGS: VASCULAR: Redemonstration of a fusiform infrarenal abdominal aortic aneurysm post endovascular repair with perirenal struts and extension into the common iliac arteries. There is a stable appearance of the stent graft without evidence of endoleak. The excluded sac measures up to a maximum of 5.3 cm at the level of the L4 vertebral body, unchanged from prior study. There is mild narrowing at the origin of the celiac axis which is otherwise well opacified. The superior mesenteric artery is widely patent from its origin. The inferior mesenteric artery origin is occluded, though there is opacification beyond secondary to collaterals. There is a single renal artery to each kidney. The renal arteries are widely patent and without stenosis. Right common iliac is widely patent. There is a mild stenosis of the right internal iliac artery. There is calcific disease of the external and internal iliac arteries with possible mild narrowing at the midportion of the external iliac. There is calcific plaque of the femoral vessels which are normal in caliber and without significant stenosis. Left common iliac artery is widely patent. There is a moderate stenosis at the origin of the internal iliac. There is calcific disease of the external iliac with a moderate stenosis at its distal third. There is calcific disease of the femoral vessels which are normal in caliber. There is an unremarkable appearance of the venous structures for an arterial phase of contrast. NONVASCULAR: The lung bases are clear. There is no pleural effusion. The imaged heart is unremarkable. The liver is normal in size, shape and overall attenuation. There is an unchanged 1.5 cm cyst within the left hepatic lobe. No other focal hepatic lesions are identified. There is no intrahepatic duct dilation. The gallbladder is unremarkable. The common duct is nondilated. The pancreas is unremarkable. The spleen is heterogeneous secondary to contrast phase, otherwise unremarkable. Adrenal glands are unremarkable. The kidneys are normal in size and overall enhancement. There is focal cortical thinning/scarring at the lower pole of the right kidney and a fluid attenuation 1.1 cm cyst at the mid to upper pole of the right kidney. No renal calculi. No ureteral calculi or hydroureter. The bladder is partially distended and normal in contour. No nodularity or bladder calculi. The uterus and adnexa are unremarkable. There is a large hiatus hernia containing much of the stomach. The small and large bowel are nondilated. Minimal colonic diverticulosis. There are no bowel wall inflammatory changes. There is no free intraperitoneal fluid. There is no abdominopelvic or retroperitoneal lymphadenopathy. There is a fat-containing subxiphoid hernia which measures 1.3 cm transverse. Multilevel degenerative changes of the imaged thoracolumbar spine are again noted including chronic superior endplate fractures of L1, L2, L4. There is no acute or aggressive bony abnormality identified. CT/CT angio abdomen pelvis IMPRESSION: Stable appearance of infrarenal abdominal aortic aneurysm post endovascular repair without evidence of endoleak.
[2021-06-09] MEDS: iohexoL 350 MG/ML 100 ML INFUS..BTL IV (15:17)
== END 2021-06-09 14:40 | disposition home or self-care (01) ==
LOC: HO.CT 14:39
PROVIDERS: Visit Provider Surgery Vascular Surgery
DX: I71.4 Abdominal aortic aneurysm, without rupture (principal)
CPT/HCPCS: 74174; Q9967

== ENCOUNTER → 2021-07-26 11:50 | Outpatient (BNVA) | payer MEDICARE, SELFPAY | PROVIDERS: PCP Internal Medicine; Visit Provider Surgery Vascular Surgery | DX: I71.4 Abdominal aortic aneurysm, without rupture (principal) | CPT/HCPCS: 99212 ==

== ENCOUNTER → 2021-11-03 13:02 | Outpatient (BNVA) | payer MEDICARE, SELFPAY | PROVIDERS: PCP Internal Medicine; Referring Provider Internal Medicine; Visit Provider Internal Medicine | DX: I25.10 Atherosclerotic heart disease of native coronary artery without angina pectoris (principal); I71.4 Abdominal aortic aneurysm, without rupture; F17.210 Nicotine dependence, cigarettes, uncomplicated | CPT/HCPCS: 93005; 99212 ==

== ENCOUNTER 2021-12-01 07:18 | Outpatient (REF) | payer MEDICARE, SELFPAY ==
[2021-12-01 11:34] LABS: Hematocrit 45.9 % (37.0-47.0); Hemoglobin 14.2 g/dl (12.0-16.0); Mean Corpuscular HGB Conc 30.9 g/dl (31.0-35.0); Mean Corpuscular Hemoglobin 30.8 pg (27.0-33.0); Mean Corpuscular Volume 99.6 fL (80.0-98.0); Mean Platelet Volume 11.3 fL (9.4-12.3); Platelet Count 166 X10*3/uL (160-400); Red Blood Count 4.61 X10*6/uL (4.20-5.50); Red Cell Distribution Width 14.5 % (11.0-16.0); White Blood Count 7.7 X10*3/uL (4.8-10.8)
[2021-12-01 12:04] LABS: TSH reflex Free T4 1.05 uIU/mL (0.32-4.0)
[2021-12-01 12:13] LABS: Alanine Aminotransferase 21 U/L (0-31); Albumin Level 3.5 g/dL (3.5-5.0); Alkaline Phosphatase 124 U/L (39-117); Anion Gap 11 (12-20); Aspartate Amino Transferase 15 U/L (5-31); Bilirubin Total 0.5 mg/dL (0.0-1.0); Blood Urea Nitrogen 18 mg/dL (9-16); Calcium 9.3 mg/dL (8.4-10.2); Carbon Dioxide 26 mmol/L (22-29); Chloride 108 mmol/L (96-108); Cholesterol 109 mg/dL; Estimated Glomerular Filt Rate > 60; Glucose Fasting 102 mg/dL (60-99); HDL Cholesterol 42 mg/dL; LDL Cholesterol Calculated 54 mg/dl; Potassium 4.3 mmol/L (3.3-5.1); Rheumatoid Factor 166.4 IU/mL (<15.0); Sodium 141 mmol/L (135-145); Total Protein 6.3 g/dL (6.5-8.0); Triglycerides 69 mg/dL
== END 2021-12-01 07:19 | disposition home or self-care (01) ==
LOC: HO.HMGCLDS 07:18
PROVIDERS: Visit Provider Internal Medicine
DX: I25.10 Atherosclerotic heart disease of native coronary artery without angina pectoris (principal); I71.4 Abdominal aortic aneurysm, without rupture; M06.9 Rheumatoid arthritis, unspecified
CPT/HCPCS: 36415; 80053; 80061; 84443; 85027; 86431

== ENCOUNTER 2022-06-23 09:13 | Outpatient (REF) | payer MEDICARE, SELFPAY ==
--- NOTE | ~2022-06-23 | CT_ITS ---
STUDY PERFORMED: CTA ABDOMEN AND PELVIS WITHOUT AND WITH CONTRAST HISTORY: Abdominal aortic aneurysm, status post endograft repair DESCRIPTION: Routine abdomen and pelvis CTA protocol with contrast was performed. 75 mL of Omnipaque 350 was administered. 3D POSTPROCESSING: Multiple 3-D angiographic images were processed from the initial data set by the [facility] under concurrent physician supervision. DOSE LOWERING TECHNIQUES: This CT examination was performed using dose optimization techniques as appropriate, variously including the following: - Automated exposure control - Adjustment of mA and/or kV according to patient size (this includes techniques or standardized protocols for targeted exams where dose is matched to indication/reason for exam; i.e. extremities or head) - Use of iterative reconstruction technique DLP: 341 mGycm. COMPARISON: CTA from 06/09/2021 FINDINGS: VASCULAR: ABDOMINAL AORTA: There is a fusiform infrarenal abdominal aortic aneurysm. Abdominal aortic to bilateral common iliac artery bifurcated stent graft is in stable position. Stent graft is patent. There is some noncalcified plaque within the stent graft which is stable in appearance. The aneurysm sac measures a maximum diameter of 5.4 cm which is unchanged compared to the prior exam. No evidence of endoleak on arterial phase imaging RIGHT LOWER EXTREMITY: Right common iliac artery stent graft limb is widely patent without aneurysm. The external iliac, internal iliac and visualized femoral arteries demonstrate scattered calcified plaque without aneurysm or stenosis. LEFT LOWER EXTREMITY: Left common iliac artery stent graft limb is widely patent without aneurysm. The external iliac, internal iliac and visualized femoral arteries demonstrate scattered calcified plaque without aneurysm or stenosis. CELIOMESENTERIC ARTERIES: There is a mild stenosis of the ostium of the celiac artery. Superior mesenteric arteries widely patent. Proximal inferior mesenteric artery is occluded with reconstituted flow seen in the distal branches. RENAL ARTERIES: Patent. NONVASCULAR: Lung Bases: The visualized lung bases are unremarkable. Liver, Gallbladder and Biliary Tree: The liver is normal in size, shape, and attenuation. There is a stable simple cyst in the left lobe of the liver. No biliary ductal dilatation is present. The gallbladder is unremarkable with no evidence of radiopaque gallstones, gallbladder wall thickening, or obvious pericholecystic inflammatory changes. Pancreas: Unremarkable. Spleen: Unremarkable. Adrenal Glands: Unremarkable. Kidneys and Ureters: The kidneys are normal in size, shape, and attenuation. No hydronephrosis, hydroureter, or calculi seen. No perinephric stranding. Bladder: Unremarkable. Gastrointestinal Tract: There is a large hiatal hernia extending into the chest. The small and large bowel are unremarkable. The appendix is unremarkable. Abdominal Wall: No significant hernia is appreciated. Lymph Nodes: Normal. Pelvic Viscera: The uterus and adnexa are unremarkable. Osseous Structures: Chronic osseous changes seen within the spine CT/CT angio abdomen pelvis IMPRESSION: Infrarenal abdominal aortic aneurysm, status post endograft repair with stable appearance. Aneurysm sac is stable in size measuring 5.4 cm without evidence of endoleak
[2022-06-23] MEDS: iohexoL 350 MG/ML 75 ML INFUS..BTL IV (10:12)
[2022-06-23 13:40] LABS: Creatinine POC 0.6 mg/dL (0.5-1.4); GFR POC > 60
== END 2022-06-23 09:14 | disposition home or self-care (01) ==
LOC: HO.CT 09:13
PROVIDERS: Visit Provider Surgery Vascular Surgery
DX: I71.40 Abdominal aortic aneurysm, without rupture, unspecified (principal)
CPT/HCPCS: 74174; 82565; Q9967

== ENCOUNTER → 2022-08-08 10:47 | Outpatient (BNVA) | payer MEDICARE, SELFPAY | PROVIDERS: PCP Internal Medicine; Visit Provider Surgery Vascular Surgery | DX: I71.40 Abdominal aortic aneurysm, without rupture, unspecified (principal) | CPT/HCPCS: 99212 ==

== ENCOUNTER → 2022-11-09 12:53 | Outpatient (BNVA) | payer MEDICARE, SELFPAY | PROVIDERS: PCP Internal Medicine; Visit Provider Internal Medicine | DX: I25.10 Atherosclerotic heart disease of native coronary artery without angina pectoris (principal); F17.210 Nicotine dependence, cigarettes, uncomplicated; Z86.79 Personal history of other diseases of the circulatory system | CPT/HCPCS: 93005; 99212 ==

== ENCOUNTER 2022-12-12 07:27 | Outpatient (REF) | payer MEDICARE, SELFPAY ==
[2022-12-12 11:50] LABS: Hematocrit 42.4 % (37.0-47.0); Hemoglobin 13.3 g/dl (12.0-16.0); Mean Corpuscular HGB Conc 31.4 g/dl (31.0-35.0); Mean Corpuscular Hemoglobin 31.1 pg (27.0-33.0); Mean Corpuscular Volume 99.3 fL (80.0-98.0); Mean Platelet Volume 11.3 fL (9.4-12.3); Platelet Count 144 X10*3/uL (160-400); Red Blood Count 4.27 X10*6/uL (4.20-5.50); Red Cell Distribution Width 14.7 % (11.0-16.0)
[2022-12-12 12:16] LABS: Alanine Aminotransferase 19 U/L (0-31); Albumin Level 3.5 g/dL (3.5-5.0); Alkaline Phosphatase 106 U/L (39-117); Anion Gap 10 (12-20); Aspartate Amino Transferase 16 U/L (5-31); Bilirubin Total 0.8 mg/dL (0.0-1.0); Blood Urea Nitrogen 13 mg/dL (9-16); Calcium 9.5 mg/dL (8.4-10.2); Carbon Dioxide 29 mmol/L (22-29); Chloride 108 mmol/L (96-108); Cholesterol 125 mg/dL; Estimated Glomerular Filt Rate > 60; Glucose Fasting 100 mg/dL (60-99); HDL Cholesterol 53 mg/dL; LDL Cholesterol Calculated 56 mg/dl; Potassium 4.5 mmol/L (3.3-5.1); Sodium 142 mmol/L (135-145); TSH reflex Free T4 1.04 uIU/mL (0.32-4.0); Triglycerides 81 mg/dL; Vitamin D 25-OH Total 37.4 ng/mL (>30)
== END 2022-12-12 07:28 | disposition home or self-care (01) ==
LOC: HO.HMGCLDS 07:27
PROVIDERS: PCP Internal Medicine; Visit Provider Internal Medicine
DX: I71.40 Abdominal aortic aneurysm, without rupture, unspecified (principal); Z00.00 Encounter for general adult medical examination without abnormal findings; M06.9 Rheumatoid arthritis, unspecified; E55.9 Vitamin D deficiency, unspecified
CPT/HCPCS: 36415; 80053; 80061; 82306; 84443; 85027

== ENCOUNTER 2023-06-06 06:42 | Outpatient (REF) | payer MEDICARE, SELFPAY ==
[2023-06-06 11:31] LABS: Hematocrit 42.9 % (37.0-47.0); Hemoglobin 13.6 g/dl (12.0-16.0); Mean Corpuscular HGB Conc 31.7 g/dl (31.0-35.0); Mean Corpuscular Hemoglobin 31.8 pg (27.0-33.0); Mean Corpuscular Volume 100.2 fL (80.0-98.0); Mean Platelet Volume 11.7 fL (9.4-12.3); Platelet Count 153 X10*3/uL (160-400); Red Blood Count 4.28 X10*6/uL (4.20-5.50); Red Cell Distribution Width 14.5 % (11.0-16.0); White Blood Count 7.6 X10*3/uL (4.8-10.8)
[2023-06-06 12:01] LABS: Alanine Aminotransferase 20 U/L (0-31); Albumin Level 3.6 g/dL (3.5-5.0); Alkaline Phosphatase 88 U/L (39-117); Anion Gap 12 (12-20); Aspartate Amino Transferase 18 U/L (5-31); Bilirubin Total 0.8 mg/dL (0.0-1.0); Blood Urea Nitrogen 12 mg/dL (9-16); Calcium 9.7 mg/dL (8.4-10.2); Carbon Dioxide 22 mmol/L (22-29); Chloride 107 mmol/L (96-108); Cholesterol 105 mg/dL (<200); Estimated Glomerular Filt Rate > 60; Glucose Fasting 94 mg/dL (60-99); HDL Cholesterol 46 mg/dL (>40); LDL Cholesterol Calculated 43 mg/dL (<100); Potassium 3.8 mmol/L (3.3-5.1); Sodium 137 mmol/L (135-145); Total Protein 6.3 g/dL (6.5-8.0); Triglycerides 83 mg/dL (<150)
[2023-06-06 12:20] LABS: TSH reflex Free T4 1.04 uIU/mL (0.32-4.0); Vitamin D 25-OH Total 44.8 ng/mL (>30)
== END 2023-06-06 06:43 | disposition home or self-care (01) ==
LOC: HO.CHCLDS 06:42
PROVIDERS: Internal Medicine; Visit Provider Internal Medicine
DX: Z00.00 Encounter for general adult medical examination without abnormal findings (principal); M06.9 Rheumatoid arthritis, unspecified; I71.40 Abdominal aortic aneurysm, without rupture, unspecified; E55.9 Vitamin D deficiency, unspecified
CPT/HCPCS: 36415; 80053; 80061; 82306; 84443; 85027

== ENCOUNTER 2023-06-18 09:39 | Outpatient (AMB) | payer MEDICARE, SELFPAY ==
[2023-06-18 09:52] VITALS: BP 102/62; PULSE 88; O2SAT 96; BMI 24.9
--- NOTE | 2023-06-18 09:52 | A.OFFPC_ITS ---
Vital Signs 06/18/23 09:52 Height 5 ft 4 in Weight 145 lb BMI 24.9 BP 102/62 Blood Pressure Location Lt brachial Position Sitting Pulse 88 Pulse Source Pulse Oximeter Pulse Oximetry (%) 96 Oxygen Delivery Method Room Air Intake Visit Reasons: 6m follow up Intake Note: Pt is here today for 6 months follow up visit. Allergies alendronate sodium [Fosamax] Adverse Reaction (Unknown, Verified 06/18/23 10:06) syncope Medication List - Last Reconciled 06/18/23 by Annie Bocanegra MD aspirin 81 mg PO DAILY atorvastatin 80 mg PO DAILY 90 days calcium carbonate-vitamin D3 600 mg-5 mcg (200 unit) (Calcium 600 + D(3)) 2 tabs PO DAILY cholecalciferol (vitamin D3) (Vitamin D3) 25 mcg PO DAILY folic acid 2 mg PO DAILY hydroxychloroquine 300 mg PO DAILY methotrexate sodium 15 mg PO QWEEK metoprolol tartrate 25 mg PO BID omeprazole 20 mg PO DAILY 90 days tiotropium-olodaterol 2.5-2.5 mcg/actuation (Stiolto Respimat) 2 puffs inhalation DAILY 90 days Tobacco use date assessed: 06/18/23 Dental Screening Dental Screen Date: 06/18/23 Did you have a dental visit in the last 12 months?: Yes Did you have a dental problem in the last 6 months where you did not have access to dental care?: No Was dental information given to patient?: Patient has dentist HPI 6m follow up HPI Details Pt presents for hyperlipid, HTN, COPD, stable on meds. Pt f/u with rheumatology, for RA, stable on current treatment. [facility] Medical History Vitamin D deficiency Annual physical exam DDD (degenerative disc disease), cervical Seasonal allergies Rheumatoid arthritis NSTEMI (non-ST elevated myocardial infarction) On beta kristen at home Smoking Atherosclerotic cardiovascular disease AAA (abdominal aortic aneurysm) without rupture Osteoporosis Surgical History Hx of cataract surgery History of abdominal aortic aneurysm (AAA) repair (~08/30/20) Hx of endoscopy H/O left wrist surgery History of hand surgery Family History Father No problems noted. Mother No problems noted. Social History Household Members: None Housing: Condominium Are you a primary summer child caregiver to a significant other at home: No Do you presently have visiting nurse or other home services: No Alcohol intake: current Alcohol intake frequency: holidays/special occasions only Patient Tobacco Use Status: Current everyday Tobacco user Tobacco use type: Cigarette Cigarette Packs Per Day: 0.5 Cigarettes Per Day: 10.0 Years Smoked: 60 e-Cigarette/Vaping Use: Never Used Second Hand Smoke Exposure: No service: No Current occupational status: retired Cognitive needs: No Hearing needs: No Vision needs: Yes Questionnaire Thrive Questionnaire Date Thrive assessed: 12/15/22 LUIS-7 AMB Questionnaire LUIS-7 Date LUIS - 7 assessed: 12/15/22 Source: Developed by Drs. Brandon Izaguirre, Mari Wyatt, Efrain Osman and colleagues, with an educational marleni from [employer]. Review of Systems Const All systems reviewed & are unremarkable except as noted in HPI and below Reports no additional complaints ENT Reports no additional complaints Card Reports no additional complaints Resp Reports no additional complaints GI Reports no additional complaints Reports no additional complaints Physical exam (Primary Care) Vital Signs: Last Vital Signs Pulse 88 06/18/23 09:52 BP 102/62 06/18/23 09:52 Pulse Ox 96 06/18/23 09:52 Oxygen Delivery Method Room Air 06/18/23 09:52 BMI result Body Mass Index 24.9 Tobacco/Smoking Status: Tobacco use Status Tobacco use date assessed 06/18/23 06/18/23 10:08 Patient Tobacco Use Status Current everyday Tobacco 06/18/23 09:53 Tobacco use type Cigarette 06/18/23 09:53 e-Cigarette/Vaping Use Never Used 06/18/23 09:53 Thrive Assessment: Date of Thrive Assessment Date Thrive assessed 12/15/22 06/18/23 09:53 Const General: no acute distress HENMT Face and sinus: Yes normal facial exam Throat: Yes posterior oropharynx normal Resp Effort & Inspection: normal respiratory effort Auscultation: clear to auscultation bilaterally Cardio Rhythm: regular rhythm Heart sounds: S1 normal heart sound present and S2 normal heart sound present GI Inspection: Yes normal to inspection Palpation (GI): Soft to palpation Assessment and Plan Assessment & Plan (1) COPD (chronic obstructive pulmonary disease): Code(s): J44.9 - Chronic obstructive pulmonary disease, unspecified Plan: Continue Stiolto, cutting down on smoking discussed with the patient (2) Rheumatoid arthritis: Comment: Methotrexate weekly, follows up with Rheumatology Code(s): M06.9 - Rheumatoid arthritis, unspecified Plan: Follow-up with Rheumatology (3) Smoking: Code(s): F17.200 - Nicotine dependence, unspecified, uncomplicated Plan: Tobacco quitting discussed with the patient (4) AAA (abdominal aortic aneurysm) without rupture: Comment: 08/30/2020 - endovascular aneurysm repair with Endologix AFX device, f/u Dr Zapata Code(s): I71.4 - Abdominal aortic aneurysm, without rupture Plan: Continue statin and metoprolol follow-up with vascular surgeon Orders: Orders TSH reflex Free T4 365 Days E55.9 - Vitamin D deficiency, unspecified, I71.4 - Abdominal aortic aneurysm, without rupture, J44.9 - Chronic obstructive pulmonary disease, unspecified, M06.9 - Rheumatoid arthritis, unspecified, Z00.00 - Encounter for general adult medical examination without abnormal findings Vitamin D 25-OH Total 365 Days E55.9 - Vitamin D deficiency, unspecified, I71.4 - Abdominal aortic aneurysm, without rupture, J44.9 - Chronic obstructive pulmonary disease, unspecified, M06.9 - Rheumatoid arthritis, unspecified, Z00.0 0 - Encounter for general adult medical examination without abnormal findings Complete Blood Count no Diff 365 Days E55.9 - Vitamin D deficiency, unspecified, I71.4 - Abdominal aortic aneurysm, without rupture, J44.9 - Chronic obstructive pulmonary disease, unspecified, M06.9 - Rheumatoid arthritis, unspecified, Z00.00 - Encounter for general adult medical examination without abnormal findings Comprehensive [place]. Panel Fast 365 Days E55.9 - Vitamin D deficiency, unspecified, I71.4 - Abdominal aortic aneurysm, without rupture, J44.9 - Chronic obstructive pulmonary disease, unspecified, M06.9 - Rheumatoid arthritis, unspecified, Z00.00 - Encounter for general adult medical examination without abnormal findings Lipid Panel 365 Days E55.9 - Vitamin D deficiency, unspecified, I71.4 - Abdominal aortic aneurysm, without rupture, J44.9 - Chronic obstructive pulmonary disease, unspecified, M06.9 - Rheumatoid arthritis, unspecified, Z00.00 - Encounter for general adult medical examination without abnormal findings Coding Level of Care Code Est Pt Level 4 (68698) Diagnoses COPD (chronic obstructive pulmonary disease) J44.9 Rheumatoid arthritis M06.9 Smoking F17.200 AAA (abdominal aortic aneurysm) without rupture I71.4
== END 2023-06-18 10:39 | disposition home or self-care (01) ==
PROVIDERS: Visit Provider Internal Medicine
DX: J44.9 Chronic obstructive pulmonary disease, unspecified (principal); M06.9 Rheumatoid arthritis, unspecified; F17.200 Nicotine dependence, unspecified, uncomplicated; I71.40 Abdominal aortic aneurysm, without rupture, unspecified
CPT/HCPCS: 99214

== ENCOUNTER 2023-08-09 13:58 | Outpatient (AMB) | payer MEDICARE, SELFPAY ==
[2023-08-09 14:03] VITALS: BP 114/70; PULSE 87; TEMP 36.5; O2SAT 97; BMI 24.7
--- NOTE | 2023-08-09 14:03 | AM.OFFWIN_ITS ---
Intake Vital Signs 08/09/23 14:03 Height 5 ft 4 in Weight 144 lb BMI 24.7 BP 114/70 Blood Pressure Location Rt brachial Position Sitting Pulse 87 Pulse Source Pulse Oximeter Temp 97.7 F Temp Source Temporal Artery Scan Pulse Oximetry (%) 97 Oxygen Delivery Method Room Air Intake Visit Reasons: EP, Left arm pain Intake Note: pt is here today for lft arm pain started 5 days ago's Patient Tobacco Use Status: Current everyday Tobacco user Allergies alendronate sodium [Fosamax] Adverse Reaction (Unknown, Verified 08/09/23 14:11) syncope Do you need a note to return to daycare/school/sports/work: No HPI EP, Left arm pain HPI Details 78 year old female patient presents to t he walk in clinic today for left elbow pain. She reports that about 5 days ago, she was on a ladder in her kitchen, and when she stepped down she missed the last step and hit her left elbow on her counter. She has had tenderness around left elbow since then. Denies any bruising, redness, or weakness of arm. Has taken Tylenol arthritis and used aspercreme with some mild benefit. [facility] Medical History Vitamin D deficiency Annual physical exam DDD (degenerative disc disease), cervical Seasonal allergies Rheumatoid arthritis NSTEMI (non-ST elevated myocardial infarction) On beta kristen at home Smoking Atherosclerotic cardiovascular disease AAA (abdominal aortic aneurysm) without rupture Osteoporosis Surgical History Hx of cataract surgery History of abdominal aortic aneurysm (AAA) repair (~08/30/20) Hx of endoscopy H/O left wrist surgery History of hand surgery Family History Father No problems noted. Mother No problems noted. Social History Household Members: None Housing: Condominium Are you a primary hospice home care coordinator to a significant other at home: No Do you presently have visiting nurse or other home services: No Alcohol intake: current Alcohol intake frequency: holidays/special occasions only Patient Tobacco Use Status: Current everyday Tobacco user Tobacco use type: Cigarette Cigarette Packs Per Day: 0.5 Cigarettes Per Day: 10.0 Years Smoked: 60 e-Cigarette/Vaping Use: Never Used Second Hand Smoke Exposure: No service: No Current occupational status: retired Cognitive needs: No Hearing needs: No Vision needs: Yes Review of Systems Const All systems reviewed & are unremarkable except as noted in HPI and below Physical Exam Vital Signs: Last Vital Signs Temp 97.7 F 08/09/23 14:03 Pulse 87 08/09/23 14:03 BP 114/70 08/09/23 14:03 Pulse Ox 97 08/09/23 14:03 Oxygen Delivery Method Room Air 08/09/23 14:03 BMI result Body Mass Index 24.7 Const General: cooperative, healthy appearing and no acute distress Resp Effort & Inspection: normal respiratory effort Skin General skin exam: no rashes or lesions noted Extrem Left upper extremity: elbow/forearm Details: normal to inspection, tenderness (mild. no swelling, no bruising or erythema) Location: of the distal humerus and of the proximal forearm, normal ROM and distal pulses intact Psych Appearance: grossly normal Mental Status: mental status grossly normal Speech and movement: Normal speech and movement present Assessment & Plan Assessment & Plan (1) Pain in left elbow: Code(s): M25.522 - Pain in left elbow Plan: XR of left elbow done in the office today was normal. Patient cannot take NSAIDs. I have advised she continue to take Tylenol and she may try otc lidocaine patches and topical ice as needed. She also has a topical CBD cream which she is going to apply. I provided her with an elbow compression sleeve today which she reports feels beneficial. If pain persists despite conservative measures or if pain worsens or new symptoms develop, she should return to the clinic or f/u with PCP as needed. She agrees to plan. Orders: Orders XR elbow LT 2V 08/09/23 M25.522 - Pain in left elbow Coding Level of Care Code Est Pt Level 3 (24683) Diagnoses Pain in left elbow M25.522
== END 2023-08-09 14:51 | disposition home or self-care (01) ==
PROVIDERS: PCP Internal Medicine; Visit Provider Nurse Practitioner Family
DX: M25.522 Pain in left elbow (principal)
CPT/HCPCS: 99213

== ENCOUNTER 2023-08-09 14:19 | Outpatient (REF) | payer MEDICARE, SELFPAY ==
--- NOTE | ~2023-08-09 | XR_ITS ---
EXAMINATION: XR ELBOW, LEFT CLINICAL INFORMATION: Pain in left elbow COMPARISON: None available. TECHNIQUE: AP, lateral, and oblique views of the left elbow. FINDINGS: The bones and soft tissues are normal. No fracture or joint effusion. Alignment is anatomic. Joint spaces are maintained. XR/XR elbow LT 2V IMPRESSION: Normal left elbow.
== END 2023-08-09 14:20 | disposition home or self-care (01) ==
LOC: HO.HMGCX 14:19
PROVIDERS: PCP Internal Medicine; Visit Provider Nurse Practitioner Family
DX: M25.522 Pain in left elbow (principal)
CPT/HCPCS: 73070

== ENCOUNTER 2023-08-14 08:59 | Outpatient (REF) | payer MEDICARE, SELFPAY ==
--- NOTE | ~2023-08-14 | CT_ITS ---
STUDY PERFORMED: CT ABDOMEN AND PELVIS WITHOUT AND WITH CONTRAST HISTORY: Abdominal aortic aneurysm, status post endograft repair. DESCRIPTION: Routine abdomen and pelvis CTA protocol with contrast was performed. 80 mL of Omnipaque 350 was administered. 3D POSTPROCESSING: Multiple 3-D angiographic images were processed from the initial data set by the [facility] under concurrent physician supervision. DOSE LOWERING TECHNIQUES: This CT examination was performed using dose optimization techniques as appropriate, variously including the following: Automated exposure control. Adjustment of mA and/or kV according to patient size (this includes techniques or standardized protocols for targeted exams where dose is matched to indication/reason for exam; i.e. extremities or head). Use of iterative reconstruction technique. DLP: 207 mGy-cm. COMPARISON: CTA from 06/23/2022. FINDINGS: VASCULAR: ABDOMINAL AORTA: Again seen is a fusiform infrarenal abdominal aortic aneurysm status post repair with an aortic to bilateral common iliac artery bifurcated stent graft . Stent graft is patent. There is some noncalcified plaque within the stent graft which is stable in appearance. The aneurysm sac measures a maximum diameter of 5.4 cm which is unchanged compared to the prior exam. No evidence of endoleak on arterial phase imaging. Noncontrast as well as delayed imaging for assessment of an endoleak was not performed. RIGHT LOWER EXTREMITY: Right common iliac artery stent graft limb is widely patent without aneurysm. The external iliac, internal iliac and visualized femoral arteries demonstrate moderate calcified plaque without aneurysm or stenosis. LEFT LOWER EXTREMITY: Left common iliac artery stent graft limb is widely patent without aneurysm. The external iliac, internal iliac and visualized femoral arteries demonstrate moderate calcified plaque without aneurysm or stenosis. CELIOMESENTERIC ARTERIES: Again seen is a mild stenosis of the ostium of the celiac artery. Superior mesenteric artery is widely patent. Proximal inferior mesenteric artery is occluded with reconstituted flow seen in the distal branches. RENAL ARTERIES: Single renal arteries bilaterally, which are patent. NONVASCULAR: LUNG BASES: There is a 4 mm nodule in the right lower lobe that is unchanged (9:24 compare prior 11:8). LIVER, GALLBLADDER AND BILIARY TREE: The liver is normal in size, shape, and attenuation. There is a stable simple cyst in the lateral right lobe of the liver. No biliary ductal dilatation is present. The gallbladder is unremarkable with no evidence of radiopaque gallstones, gallbladder wall thickening, or obvious pericholecystic inflammatory changes. PANCREAS: Unremarkable. SPLEEN: Unremarkable. ADRENAL GLANDS: Unremarkable. KIDNEYS AND URETERS: The kidneys are normal in size, shape, and attenuation. No hydronephrosis, hydroureter, or calculi seen. No perinephric stranding. A benign 1.0 cm right upper pole Bosniak class I renal cyst is noted which requires no additional imaging or follow up. No solid renal masses are seen. BLADDER: Empty but unremarkable. GASTROINTESTINAL TRACT: Again seen is a large hiatal hernia. The small and large bowel are unremarkable. The appendix is not seen, but there is no evidence of appendicitis. ABDOMINAL WALL: No significant hernia is appreciated. LYMPH NODES: Normal. PELVIC VISCERA: The uterus and adnexa are unremarkable. OSSEOUS STRUCTURES: Generalized osteopenia is present with multiple compression fractures in the spine from T11 through L5. Findings are similar to the 06/23/[address] angio abdomen pelvis IMPRESSION: 1. Infrarenal abdominal aortic aneurysm status post endograft repair with stable aneurysm sac size at 5.4 cm. No evidence of endoleak. The study was not tailored for endoleak detection. 2. Other incidental findings as described above, including stable 4 mm right lower lobe pulmonary nodule and multiple compression fractures in the spine. According to the UPDATED 2017 Fleischner Society recommendations, the advised follow-up imaging for solid nodules <6 mm in the middle/lower lobes is no routine follow up.
[2023-08-14 09:50] LABS: Blood Urea Nitrogen 14 mg/dL (9-16)
[2023-08-14 10:57] LABS: Estimated Glomerular Filt Rate > 60
[2023-08-14] MEDS: iohexoL 350 MG/ML 100 ML INFUS..BTL IV (11:49)
== END 2023-08-14 09:00 | disposition home or self-care (01) ==
LOC: HO.CT 08:59
PROVIDERS: PCP Internal Medicine; Visit Provider Surgery Vascular Surgery
DX: I71.40 Abdominal aortic aneurysm, without rupture, unspecified (principal)
CPT/HCPCS: 36415; 74174; 82565; 84520; Q9967

== ENCOUNTER 2023-08-21 13:03 | Outpatient (AMB) | payer MEDICARE, SELFPAY ==
--- NOTE | 2023-08-21 13:06 | A.OFFVIS_ITS ---
Intake Intake Visit Reasons: 1 yr AAA repair follow up s/p CTA 08/14/2023 Intake Note: Pt here for 1yr AAA repair fallow up and S/P CTA 08/14/23 Pt states that she is doing well and has no concerns Allergies alendronate sodium [Fosamax] Adverse Reaction (Unknown, Verified 08/21/23 13:08) syncope HPI 1 yr AAA repair follow up s/p CTA 08/14/2023 HPI Details very pleasant 78-year-old female presents for evaluation regarding her abdominal aortic aneurysm. She had undergone endovascular repair approximately 3 years prior. She has had no interval issues. She does have some arthritis which she is taking methotrexate for other than that she feels well. [facility] Medical History Vitamin D deficiency Annual physical exam DDD (degenerative disc disease), cervical Seasonal allergies Rheumatoid arthritis NSTEMI (non-ST elevated myocardial infarction) On beta kristen at home Smoking Atherosclerotic cardiovascular disease AAA (abdominal aortic aneurysm) without rupture Osteoporosis Surgical History Hx of cataract surgery History of abdominal aortic aneurysm (AAA) repair (~08/30/20) Hx of endoscopy H/O left wrist surgery History of hand surgery Family History Father No problems noted. Mother No problems noted. Social History Household Members: None [facility] Are you a primary transitional care liaison to a significant other at home: No Do you presently have visiting nurse or other home services: No Alcohol intake: current Alcohol intake frequency: holidays/special occasions only Patient Tobacco Use Status: Current everyday Tobacco user Tobacco use type: Cigarette Cigarette Packs Per Day: 0.5 Cigarettes Per Day: 10.0 Years Smoked: 60 e-Cigarette/Vaping Use: Never Used Second Hand Smoke Exposure: No service: No Current occupational status: retired Cognitive needs: No Hearing needs: No Vision needs: Yes Review of Systems Const All systems reviewed & are unremarkable except as noted in HPI and below Reports no additional complaints ENT Reports Normal hearing present Card Denies chest pain, Denies chest pain at rest, Denies chest pain with activity and Denies pedal edema Resp Denies cough GI Denies abdominal pain Musc Denies abnormal gait, Denies muscle cramps and Denies radiating pain into limb Skin/Breast Denies skin ulcer and Denies wounds Neuro Reports Normal hearing present and Denies abnormal gait Psych Reports no additional complaints Physical Exam Const General: cooperative, healthy appearing and comfortable Orientation/consciousness: oriented to person, oriented to place and oriented to time HEENT Head: Yes normal to inspection Neck Neck: Yes normal visual inspection Carotids: no bruits Chest Chest palpation & inspection: normal inspection of the chest Resp Effort & Inspection: normal respiratory effort and able to speak in complete sentences Auscultation: clear to auscultation bilaterally, no crackles, no rales, no rhonchi and no wheezes Cardio Rate: regular rate Rhythm: regular rhythm Heart sounds: S1 normal heart sound present and S2 normal heart sound present Bruits: no carotid bruits Peripheral pulses: Peripheral pulses 2+ throughout GI Inspection: Yes normal to inspection Skin Wounds: no wounds Hair: normal Neuro General: oriented to person, oriented to place and oriented to time Cranial nerves: Yes CN's II-XII intact bilaterally and Yes Normal hearing present Cognition (Neuro): normal cognition Motor exam (neuro): 5/5 motor strength present throughout Extrem Other: venous exam: No significant superficial varicosities or spider telangiectasias, minimal edema General: No clubbing, No cyanosis and No edema Psych Appearance: grossly normal Mental Status: mental status grossly normal Speech and movement: Normal speech and movement present Results Reviewed Results Reviewed: CT angiogram dated 08/14/2023 demonstrates stable aortic endograft with no evidence of endoleak. Assessment & Plan Assessment & Plan (1) AAA (abdominal aortic aneurysm) without rupture: Comment: 08/30/2020 - endovascular aneurysm repair with Endologix AFX device, f/u Dr Zapata Code(s): I71.4 - Abdominal aortic aneurysm, without rupture Qualifiers: Abdominal aorta location: infrarenal aorta Qualified Code(s): I71.43 - Infrarenal abdominal aortic aneurysm, without rupture Plan: In short patient has stable aortic endograft. Will plan for annual surveillance. Risk factor modification was discussed. Thank you for allowing us to assist in her care. Orders: Orders Blood Urea Nitrogen 10 Months I71.43 - Infrarenal abdominal aortic aneurysm, without rupture Creatinine 10 Months I71.43 - Infrarenal abdominal aortic aneurysm, without rupture CT angio abdomen pelvis 10 Months I71.43 - Infrarenal abdominal aortic aneurysm, without rupture Coding Level of Care Code Est Pt Level 4 (31206) Diagnoses Infrarenal abdominal aortic aneurysm (AAA) without rupture I71.43 Abdominal aorta location: infrarenal aorta
== END 2023-08-21 13:44 | disposition home or self-care (01) ==
PROVIDERS: PCP Internal Medicine; Visit Provider Surgery Vascular Surgery
DX: I71.43 Infrarenal abdominal aortic aneurysm, without rupture (principal)
CPT/HCPCS: 99214

== ENCOUNTER → 2023-08-21 13:03 | Outpatient (BNVA) | payer MEDICARE, SELFPAY | PROVIDERS: PCP Internal Medicine; Visit Provider Surgery Vascular Surgery | DX: I71.43 Infrarenal abdominal aortic aneurysm, without rupture (principal) | CPT/HCPCS: 99212 ==

== ENCOUNTER 2023-11-01 14:55 | Outpatient (AMB) | payer MEDICARE, SELFPAY ==
[2023-11-01 15:09] VITALS: BP 110/60; PULSE 70; BMI 24.6
--- NOTE | 2023-11-01 15:09 | MHC.OFFVIS ---
Intake Vital Signs 11/01/23 15:09 Height 5 ft 4 in Weight 143 lb 4.807 oz BMI 24.6 BP 110/60 Blood Pressure Location Lt brachial Position Sitting Pulse 70 Intake Visit Reasons: 1 yr f/p Intake Note: pt here 1 yr f/up [employer] Supervisor Required: No Accompanied by: Self / Same As Patient Allergies alendronate sodium [Fosamax] Adverse Reaction (Unknown, Verified 08/21/23 13:08) syncope Medication List - Last Reconciled 11/01/23 by Cheng Velasquez MD aspirin 81 mg PO DAILY atorvastatin 80 mg PO DAILY 90 days calcium carbonate-vitamin D3 600 mg-5 mcg (200 unit) (Calcium 600 + D(3)) 2 tabs PO DAILY cholecalciferol (vitamin D3) (Vitamin D3) 25 mcg PO DAILY folic acid 2 mg PO DAILY hydroxychloroquine 300 mg PO DAILY methotrexate sodium 20 mg subcut QWEEK metoprolol tartrate 25 mg PO BID omeprazole 20 mg PO DAILY tiotropium-olodaterol 2.5-2.5 mcg/actuation (Stiolto Respimat) 2 puffs inhalation DAILY 90 days HPI HPI Comments History of Present Illness Details Liza returns for follow-up regarding coronary disease. To recall, in 2017, she was admitted for GI bleeding from gastric ulcer. At that time she had an NSTEMI. She underwent noninvasive testing but preferred not to have any catheterization. Hence she is on empiric medications for stable CAD. Overall, she states she is feeling fine. No complaints like angina or shortness of breath or in fact anything cardiac sounding. Seems to be getting along fine. Unfortunately, can not stop smoking. [facility] Medical History Vitamin D deficiency Annual physical exam DDD (degenerative disc disease), cervical Seasonal allergies Rheumatoid arthritis NSTEMI (non-ST elevated myocardial infarction) On beta kristen at home Smoking Atherosclerotic cardiovascular disease AAA (abdominal aortic aneurysm) without rupture Osteoporosis Surgical History Hx of cataract surgery History of abdominal aortic aneurysm (AAA) repair (~08/30/20) Hx of endoscopy H/O left wrist surgery History of hand surgery Family History Father No problems noted. Mother No problems noted. Social History Household Members: None Housing: Condominium Are you a primary physician assistant primary care to a significant other at home: No Do you presently have visiting nurse or other home services: No Alcohol intake: current Alcohol intake frequency: holidays/special occasions only Patient Tobacco Use Status: Current everyday Tobacco user Tobacco use type: Cigarette Cigarette Packs Per Day: 0.5 Cigarettes Per Day: 10.0 Years Smoked: 60 e-Cigarette/Vaping Use: Never Used Second Hand Smoke Exposure: No service: No Current occupational status: retired Cognitive needs: No Hearing needs: No Vision needs: Yes Review of Systems Const Denies chills, Denies fatigue, Denies fever(s), Denies frequent falls, Denies weakness, Denies weight gain and Denies weight loss ENT Denies dizziness Card Denies chest pain, Denies leg edema, Denies lightheadedness, Denies palpitations, Denies dyspnea and Denies dyspnea on exertion Resp Denies cough, Denies dyspnea and Denies dyspnea on exertion GI Denies hematochezia Musc Denies abnormal gait, Denies muscle weakness, Denies numbness, Denies radiating pain into limb and Denies tingling Neuro Denies abnormal gait, Denies dizziness, Denies frequent falls, Denies numbness, Denies tingling and Denies weakness Endo Denies fatigue and Denies palpitations Physical Exam Vital Signs: Last Vital Signs Pulse 70 11/01/23 15:09 BP 110/60 11/01/23 15:09 BMI result Body Mass Index 24.6 Const General: comfortable and no acute distress Orientation/consciousness: patient oriented x3 HEENT Other: Unremarkable Head: Yes normal to inspection Neck Neck: Yes normal visual inspection Chest Chest palpation & inspection: normal inspection of the chest Resp Auscultation: clear to auscultation bilaterally Cardio Palpation: normal PMI Heart sounds: S1 normal heart sound present, S2 normal heart sound present, no gallops, no murmurs and no rubs GI Palpation (GI): Soft to palpation Back/Spine/Pelvis Other: unremarkable Skin General skin exam: no rashes or lesions noted Neuro General: patient oriented x3 Extrem General: Yes normal to inspection Psych Mental Status: mental status grossly normal Office Procedures EKG Details: EKG with sinus rhythm at 70/Min; no significant ST-T changes and otherwise unremarkable[place] [address]-[id number], Complete Assessment & Plan Assessment & Plan (1) Atherosclerotic cardiovascular disease: Code(s): I25.10 - Atherosclerotic heart disease of [place] coronary artery without angina pectoris (2) AAA (abdominal aortic aneurysm) without rupture: Comment: 08/30/2020 - endovascular aneurysm repair with Endologix AFX device, f/u Dr Zapata Code(s): I71.4 - Abdominal aortic aneurysm, without rupture Qualifiers: Abdominal aorta location: infrarenal aorta Qualified Code(s): I71.43 - Infrarenal abdominal aortic aneurysm, without rupture (3) Smoking: Code(s): F17.200 - Nicotine dependence, unspecified, uncomplicated Plan In the stress test from 2016, she had apical as well as lateral ischemia. She was not interested in cardiac catheterization then. This has been repeated in 2019 and shows a fixed defect in the basal lateral/anterolateral wall which could be a prior infarct. No definitive ischemia. Echocardiogram 2019 with normal LVEF, 60-65% and basal inferior hypokinesis. In the past, cardiac catheterization discussed but she never was interested and hence not pursued. As she has absolutely no angina, continue medications. She remains on aspirin, beta-blockers, statins. Lipids are controlled. Smoking cessation has been discussed numerous times but she states that she has been doing this for more than 60 years and cannot stop. We will also check carotid ultrasound to ensure there is no significant disease considering her long smoking history. Orders: Orders US carotid duplex BI Today I65.23 - Occlusion and stenosis of bilateral carotid arteries Coding Level of Care Code Est Pt Level 4 (58239) Diagnoses Atherosclerotic cardiovascular disease I25.10 Infrarenal abdominal aortic aneurysm (AAA) without rupture I71.43 Abdominal aorta location: infrarenal aorta Smoking F17.200 CPT Codes EKG - CPT: 68570-[id number], Complete ([id number])
== END 2023-11-01 15:56 | disposition home or self-care (01) ==
PROVIDERS: Visit Provider Internal Medicine
DX: I25.10 Atherosclerotic heart disease of native coronary artery without angina pectoris (principal); I71.43 Infrarenal abdominal aortic aneurysm, without rupture; F17.200 Nicotine dependence, unspecified, uncomplicated
CPT/HCPCS: 93010; 99214

== ENCOUNTER → 2023-11-01 14:55 | Outpatient (BNVA) | payer MEDICARE, SELFPAY | PROVIDERS: Visit Provider Internal Medicine | DX: I25.10 Atherosclerotic heart disease of native coronary artery without angina pectoris (principal); I71.43 Infrarenal abdominal aortic aneurysm, without rupture; F17.210 Nicotine dependence, cigarettes, uncomplicated | CPT/HCPCS: 93005; 99212 ==

== ENCOUNTER 2023-11-07 12:58 | Outpatient (REF) | payer MEDICARE, SELFPAY ==
--- NOTE | ~2023-11-07 | US_ITS ---
EXAMINATION: US EXTRACRANIAL CAROTID DUPLEX, BILATERAL CLINICAL INFORMATION: Occlusion and stenosis of bilateral carotid arteries COMPARISON: None available. TECHNIQUE: Real-time ultrasound and Doppler techniques (integrating B-mode 2-D vascular images, Doppler spectral analysis and color-flow Doppler imaging) were utilized to interrogate the extracranial carotid arteries, the vertebral arteries and proximal subclavian arteries bilaterally. The degree of stenosis is determined by criteria similar to NASCET. FINDINGS: Right Side: 1. There is severe atherosclerotic plaque seen in the bifurcation/proximal ICA region. 2. The common carotid artery PSV proximally is 105 cm/s and distally 94 cm/s. 3. The proximal internal carotid artery velocities are 101 cm/s systolic and 27 cm/s diastolic. 4. The proximal external carotid artery PSV is 108 cm/s. 5. The vertebral artery shows antegrade flow. 6. The subclavian artery waveforms are normal. Left Side: 1. There is severe atherosclerotic plaque seen in the bifurcation/proximal ICA region. 2. The common carotid artery PSV proximally is 125 cm/s and distally 86 cm/s. 3. The proximal internal carotid artery velocities are 168 cm/s systolic and 39 cm/s diastolic. 4. The proximal external carotid artery PSV is 337 cm/s. 5. The vertebral artery shows 42 flow. 6. The subclavian artery waveforms are normal. US/US carotid duplex BI IMPRESSION: 1. RIGHT: Minimal, non-hemodynamically significant stenosis of the proximal right internal carotid artery corresponding to a 0-49% stenosis by velocity criteria. 2. LEFT: Moderate, hemodynamically significant stenosis of the proximal left internal carotid artery corresponding to a 50-79% stenosis by velocity criteria. 3. High-grade stenosis of left external carotid artery.
== END 2023-11-07 12:59 | disposition home or self-care (01) ==
LOC: HO.HMGCX 12:58
PROVIDERS: PCP Internal Medicine; Visit Provider Internal Medicine
DX: I65.23 Occlusion and stenosis of bilateral carotid arteries (principal)
CPT/HCPCS: 93880

== ENCOUNTER 2024-06-23 08:20 | Outpatient (REF) | payer MEDICARE, SELFPAY ==
--- NOTE | ~2024-06-23 | CT_ITS ---
EXAMINATION: CT ANGIOGRAPHY ABDOMEN AND PELVIS CLINICAL INFORMATION: I71.43 - Infrarenal abdominal aortic aneurysm, without rupture COMPARISON: CTA abdomen August 14, 2023 TECHNIQUE: Initial noncontrast localizing diagnostic radiologic technologist images were obtained. A timing bolus at the level of the celiac artery was calculated. Subsequently, arterial phase multidetector volumetric imaging was performed through the abdomen and pelvis following the administration of 80 mL Omnipaque 350 intravenous contrast. No contrast reaction reported. Sagittal and coronal reformatted images were obtained on the technologist workstation. After extensive post-processing on a dedicated 3-D workstation, 3-D reformatted images were uploaded to PACS and reviewed as well. This CT examination was performed using dose optimization techniques as appropriate, variously including the following: *Automated exposure control *Adjustment of mA and/or kV according to patient size (this includes techniques or standardized protocols for targeted exams where dose is matched to indication/reason for exam; i.e. extremities or head) *Use of iterative reconstruction technique DLP: 325 mGy-cm FINDINGS: VASCULAR FINDINGS: Aorta: Stable redemonstration of infrarenal aortobiiliac stent graft with no significant change in the overall concentric intraluminal thrombus without high-grade stenosis. The excluded aneurysmal sac, when measured in the same orientation and level as prior study, measures 56 mm (previously 55 mm). Furthermore, this is stable redemonstration of nodular hyperdensity extrinsic to the stent graft at the level of the iliac bifurcation (6; 354-385), at the 12:00 position on the axial view. See saved images. Without delayed phase imaging, it is difficult to determine if this represents an endoleak. It has the appearance of the weakened endoprosthetic wall that has herniated into the excluded sac. 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 Distal tributaries are patent. Superior mesenteric artery patent. Inferior mesenteric artery occluded. Renal arteries: Single renal arteries bilaterally. Renal arteries are patent and without stenosis or other vascular anomaly. Iliac arteries: Mild bilateral iliofemoral atherosclerotic disease without high-grade stenosis. Common, external, internal iliac arteries are patent. Visualized femoral vessels are patent. NONVASCULAR: Lung Bases: Bronchial wall thickening. Right lower lobe 4-5 mm solid nodule. As enteric attenuation. Ectatic changes at the bases, right greater than left. Liver: Homogeneous in attenuation. Right hepatic cyst 1.5 cm. Normal in size. Gallbladder: Noninflamed. Biliary System: No intrahepatic or extrahepatic biliary dilation. Pancreas: Homogeneous in attenuation. Spleen: Normal in size. Genitourinary: Bilateral kidneys demonstrate symmetric enhancement. No perinephric fluid collection. No renal calculi. No hydroureteronephrosis. Adrenal Glands: Unremarkable. Reproductive: Uterus and and bilateral adnexa are unremarkable. Gastrointestinal: Large hiatal hernia. The visualized alimentary tract is normal in course. No evidence of obstruction. Appendix: The appendix is not visualized; however, no pericecal inflammatory changes are seen in the right lower quadrant. Peritoneum: No pneumoperitoneum. No intra-abdominal fluid collection. Lymph Nodes: No pathologically enlarged abdominal or pelvic lymph nodes. Soft Tissues/Musculoskeletal: Stable multilevel chronic changes of the lumbar spine, including chronic fractures of L2, L1. Degenerative changes at L1-2 with endplate sclerosis. No suspicious osseous lesions. CT/CT angio abdomen pelvis IMPRESSION: VASCULAR FINDINGS: 1. Aortobiiliac stent graft with stable size of excluded abdominal aneurysmal sac (56 mm). 2. Nodular hyperdensity seen extrinsic to the stent graft at the level of the iliac bifurcation may represent a defect in the endoprosthesis. This is stable in appearance when compared to prior study in retrospect. The study was not tailored for full evaluation of endoleak. NONVASCULAR FINDINGS: 1. Large hiatal hernia. 2. Bronchial wall thickening and small airway disease. Fleischner guidelines were followed. Electronically signed by: Ramiro Santoro DO 07/03/2024 12:22 PM EDT Workstation: [id number]
[2024-06-23] MEDS: iohexoL 350 MG/ML 100 ML INFUS..BTL 80 ML IV (09:36)
[2024-06-24 07:03] LABS: Creatinine POC 0.8 mg/dL (0.5-1.4); GFR POC > 60
== END 2024-06-23 08:21 | disposition home or self-care (01) ==
LOC: HO.CT 08:20
PROVIDERS: PCP Internal Medicine; Visit Provider Surgery Vascular Surgery
DX: I71.43 Infrarenal abdominal aortic aneurysm, without rupture (principal)
CPT/HCPCS: 74174; 82565; Q9967

== ENCOUNTER 2024-06-28 06:50 | Outpatient (REF) | payer MEDICARE, SELFPAY ==
[2024-06-28 11:46] LABS: Hematocrit 43.5 % (37.0-47.0); Mean Corpuscular HGB Conc 32.2 g/dl (31.0-35.0); Mean Corpuscular Hemoglobin 32.4 pg (27.0-33.0); Mean Corpuscular Volume 100.7 fL (80.0-98.0); Mean Platelet Volume 11.5 fL (9.4-12.3); Platelet Count 125 X10*3/uL (160-400); Red Blood Count 4.32 X10*6/uL (4.20-5.50); Red Cell Distribution Width 13.9 % (11.0-16.0); White Blood Count 6.2 X10*3/uL (4.8-10.8)
[2024-06-28 11:57] LABS: Alanine Aminotransferase 23 U/L (0-31); Albumin Level 3.6 g/dL (3.5-5.0); Alkaline Phosphatase 81 U/L (39-117); Anion Gap 12 (12-20); Aspartate Amino Transferase 26 U/L (5-31); Bilirubin Total 0.7 mg/dL (0.0-1.0); Blood Urea Nitrogen 14 mg/dL (9-16); Calcium 9.7 mg/dL (8.4-10.2); Carbon Dioxide 25 mmol/L (22-29); Chloride 105 mmol/L (96-108); Cholesterol 109 mg/dL (<200); Estimated Glomerular Filt Rate > 60; Glucose Fasting 94 mg/dL (60-99); HDL Cholesterol 52 mg/dL (>40); LDL Cholesterol Calculated 42 mg/dL (<100); Potassium 3.7 mmol/L (3.3-5.1); Sodium 138 mmol/L (135-145); Total Protein 6.4 g/dL (6.5-8.0); Triglycerides 78 mg/dL (<150)
[2024-06-28 12:16] LABS: Vitamin D 25-OH Total 62.9 ng/mL (>30)
== END 2024-06-28 06:51 | disposition home or self-care (01) ==
LOC: HO.HMGCLDS 06:50
PROVIDERS: PCP Internal Medicine; Visit Provider Internal Medicine
DX: Z00.00 Encounter for general adult medical examination without abnormal findings (principal); J44.9 Chronic obstructive pulmonary disease, unspecified; E55.9 Vitamin D deficiency, unspecified; M06.9 Rheumatoid arthritis, unspecified; I71.40 Abdominal aortic aneurysm, without rupture, unspecified
CPT/HCPCS: 36415; 80053; 80061; 82306; 84443; 85027

== ENCOUNTER 2024-07-07 08:44 | Outpatient (AMB) | payer MEDICARE, SELFPAY ==
--- NOTE | 2024-07-07 08:48 | MHC.PC.OV ---
Vital Signs 07/07/24 08:53 Height 5 ft 4 in Weight 137 lb BMI 23.5 BP 122/78 Blood Pressure Location Lt brachial Position Sitting Pulse 63 Pulse Source Pulse Oximeter Pulse Oximetry (%) 100 Oxygen Delivery Method Room Air Intake Visit Reasons: Annual PE Intake Note: Pt is here today for PE. Allergies alendronate sodium [Fosamax] Adverse Reaction (Unknown, Verified 07/07/24 08:54) syncope Tobacco use date assessed: 07/07/24 Fall risk assessment: No Falls in past year Last assessed Fall Risk: 07/07/24 Dental Screening Dental Screen Date: 07/07/24 Did you have a dental visit in the last 12 months?: Yes Did you have a dental problem in the last 6 months where you did not have access to dental care?: No Was dental information given to patient?: Patient has dentist HPI Annual PE HPI Details Patient presents for physical PFSH Medical History (Updated 07/07/24 @ 10:29 by Annie Bocanegra MD) Vitamin D deficiency Annual physical exam DDD (degenerative disc disease), cervical Seasonal allergies Rheumatoid arthritis NSTEMI (non-ST elevated myocardial infarction) On beta kristen at home Smoking Atherosclerotic cardiovascular disease AAA (abdominal aortic aneurysm) without rupture Osteoporosis Surgical History Hx of cataract surgery History of abdominal aortic aneurysm (AAA) repair (~08/30/20) Hx of endoscopy H/O left wrist surgery History of hand surgery Family History Father No problems noted. Mother No problems noted. Social History Household Members: None Housing: Condominium Are you a primary day care assistant to a significant other at home: No Do you presently have visiting nurse or other home services: No Alcohol intake: current Alcohol intake frequency: holidays/special occasions only Patient Tobacco Use Status: Current everyday Tobacco user Tobacco use type: Cigarette Cigarette Packs Per Day: 0.5 Cigarettes Per Day: 10.0 Years Smoked: 60 e-Cigarette/Vaping Use: Never Used Second Hand Smoke Exposure: No service: No Current occupational status: retired Cognitive needs: No Hearing needs: No Vision needs: Yes Questionnaire PHQ-9 Over the last 2 weeks, how often have you been bothered by any of the following problems? 1. Little interest or pleasure in doing things: not at all 2. Feeling down, depressed, or hopeless: not at all 3. Trouble falling or staying asleep, or sleeping too much: several days 4. Feeling tired or having little energy: several days 5. Poor appetite or overeating: not at all 6. Feeling bad about yourself - or that you are a failure or have let yourself or your family down: not at all 7. Trouble concentrating on things, such as reading the newspaper or watching television: not at all 8. Moving or speaking so slowly that other people could have noticed. Or the opposite - being so fidgety or restless that you have been moving around a lot more than usual: not at all 9. Thoughts that you would be better off or of hurting yourself in some way: not at all Total score: 2 Depression Screening Interpretation: Negative Depression Screening Done: Yes 59849 - PHQ-9 Billing: Yes Source: Developed by Drs. Brandon Izaguirre, Mari Wyatt, Efrain Osman and colleagues, with an educational marleni from [employer] by [employer]. Thrive Questionnaire Date Thrive assessed: 07/07/24 I am a: Patient What is your living situation today?: I have a steady place to live Within the past 12 months, did the food you bought not last and you didn't have the money to get more?: Never true Within the past 12 months, did you worry whether your food would run out before you got money to buy more?: I choose not to answer this question Do you have trouble paying for medicines?: No Do you have trouble getting transportation to medical appointments?: No Do you have trouble paying your heating and electricity bill?: No Do you have trouble taking care of your child, family member or friend?: No Do you have trouble with day-to-day activities such as bathing, preparing meals, shopping, managing finances, etc.?: No Are you currently unemployed and looking for a job?: No Are you interested in more education?: No Please select the resources that you would like help with: None Currently or been in a relationship where the following occur: No concerns reported THRIVE Score: 0 AUDIT C Alcohol Use Questionnaire (AUDIT-C) 1. How often do you have a drink containing alcohol?: Monthly or less 2. How many drinks containing alcohol do you have on a typical day when you are drinking?: 1 or 2 3. How often do you have six or more drinks on one occasion?: Never Total Score: 1 LUIS-7 AMB Questionnaire LUIS-7 Date LUIS - 7 assessed: 07/07/24 Feeling nervous, anxious, or on edge: 0 = Not at all Not being able to stop or control worryin = Not at all Worrying too much about different things: 0 = Not at all Trouble relaxin = Not at all Being so restless that it is hard to sit still: 0 = Not at all Becoming easily annoyed or irritable: 0 = Not at all Feeling afraid as if something awful might happen: 0 = Not at all Total LUIS-7 score (0-4 normal; 5-9 mild; 10-14 moderate; 15-21 severe): 0 Source: Developed by Drs. Brandon Izaguirre, Mari Wyatt, Efrain Osman and colleagues, with an educational marleni from [employer] by [employer]. LUIS-7 Assessment Billing LUIS-7 Assessment Tool: LUIS-7 Assessment 38403 Review of Systems Const All systems reviewed & are unremarkable except as noted in HPI and below ENT Reports no additional complaints Card Reports no additional complaints Resp Reports no additional complaints GI Reports no additional complaints Reports no additional complaints Physical exam (Primary Care) Vital Signs: Last Vital Signs Pulse 63 07/07/24 08:53 BP 122/78 07/07/24 08:53 Pulse Ox 100 07/07/24 08:53 Oxygen Delivery Method Room Air 07/07/24 08:53 BMI result Body Mass Index 23.5 Tobacco/Smoking Status: Tobacco use Status Tobacco use date assessed 07/07/24 07/07/24 08:57 Patient Tobacco Use Status Current everyday Tobacco 07/07/24 08:49 Tobacco use type Cigarette 07/07/24 08:49 e-Cigarette/Vaping Use Never Used 07/07/24 08:49 PHQ-9: PHQ-9 Score PHQ-9: Total score 2 07/07/24 08:57 Depression Screening Interpretation: Negative Thrive Assessment: Date of Thrive Assessment Date Thrive assessed 07/07/24 07/07/24 08:57 Currently or been in a relationship where the following occur: No concerns reported Const General: no acute distress HENMT Head: Yes normal to inspection Face and sinus: Yes normal facial exam Mouth: Normal oral and palatal mucosa present Eyes General: appearance normal, both eyes and all related structures Resp Effort & Inspection: normal respiratory effort Auscultation: clear to auscultation bilaterally Cardio Rhythm: regular rhythm Heart sounds: S1 normal heart sound present and S2 normal heart sound present GI Inspection: Yes normal to inspection Palpation (GI): Soft to palpation Percussion: Yes normal to percussion Auscultation: normal bowel sounds Coding Level of Care Code Est Pt Prev Care >65y(30333) Diagnoses COPD (chronic obstructive pulmonary disease) J44.9 Rheumatoid arthritis M06.9 Infrarenal abdominal aortic aneurysm (AAA) without rupture I71.43 Abdominal aorta location: infrarenal aorta Smoking F17.200 Annual physical exam Z00.00 Osteoporosis M81.0 Additional Codes LUIS-7 Assessment Billing - LUIS-7 Assessment Tool: LUIS-7 Assessment 43817 ([id number]) Assessment & Plan Assessment & Plan (1) COPD (chronic obstructive pulmonary disease): Code(s): J44.9 - Chronic obstructive pulmonary disease, unspecified Category: Medical Plan: cont Stiolto (2) Rheumatoid arthritis: Comment: Methotrexate weekly, follows up with Rheumatology Code(s): M06.9 - Rheumatoid arthritis, unspecified Category: Medical Plan: cont tx and f/u with rheumatology (3) AAA (abdominal aortic aneurysm) without rupture: Comment: 08/30/2020 - endovascular aneurysm repair with Endologix AFX device, f/u Dr Zapata Code(s): I71.4 - Abdominal aortic aneurysm, without rupture Category: Medical Qualifiers: Abdominal aorta location: infrarenal aorta Qualified Code(s): I71.43 - Infrarenal abdominal aortic aneurysm, without rupture Plan: f/u with vascular surgeon (4) Smoking: Comment: 1/2 PPDx 50 yrs Code(s): F17.200 - Nicotine dependence, unspecified, uncomplicated Category: Social Hx Plan: Patient is not interested in quitting (5) Annual physical exam: Code(s): Z00.00 - Encounter for general adult medical examination without abnormal findings Category: Medical Plan: Well-balanced diet regular physical activity discussed with the patient (6) Osteoporosis: Comment: T 12, L1 and L4 compression fractures, syncope from Fosamax refused the treatment 07/2023 Code(s): M81.0 - Age-related osteoporosis without current pathological fracture Category: Medical Plan: Continue vitamin-D supplement and regular exercise
[2024-07-07 08:53] VITALS: BP 122/78; PULSE 63; O2SAT 100; BMI 23.5
== END 2024-07-07 10:43 | disposition home or self-care (01) ==
LOC: HO.HMCC 08:44
PROVIDERS: PCP Internal Medicine; Visit Provider Internal Medicine
DX: J44.9 Chronic obstructive pulmonary disease, unspecified (principal); M06.9 Rheumatoid arthritis, unspecified; I71.43 Infrarenal abdominal aortic aneurysm, without rupture; F17.200 Nicotine dependence, unspecified, uncomplicated; Z00.00 Encounter for general adult medical examination without abnormal findings; M81.0 Age-related osteoporosis without current pathological fracture

== ENCOUNTER → 2024-07-07 08:44 | Outpatient (BNVA) | payer MEDICARE, SELFPAY | PROVIDERS: PCP Internal Medicine; Visit Provider Internal Medicine | DX: Z00.00 Encounter for general adult medical examination without abnormal findings (principal); M81.0 Age-related osteoporosis without current pathological fracture; J44.9 Chronic obstructive pulmonary disease, unspecified; I71.43 Infrarenal abdominal aortic aneurysm, without rupture; F17.200 Nicotine dependence, unspecified, uncomplicated; Z71.6 Tobacco abuse counseling | CPT/HCPCS: 96127; 99397 ==

== ENCOUNTER 2024-07-22 13:34 | Outpatient (AMB) | payer MEDICARE, SELFPAY ==
--- NOTE | 2024-07-22 13:40 | A.OFFVIS_ITS ---
Intake Visit Reasons: 1yr follow up s/p CTA Abd/Pelvis 06/23/24 Intake Note: Patient presents for follow up CTA ABD/Pelvis performed on 06/23/24. No complaints. Allergies alendronate sodium [Fosamax] Adverse Reaction (Unknown, Verified 07/22/24 13:43) syncope HPI HPI 1yr follow up s/p CTA Abd/Pelvis 06/23/24: Details: Very pleasant 79-year-old female presents for follow-up regarding her aortic aneurysm she had endovascular repair about 4 years prior. She does have some arthritis issues which appear to be better controlled now with methotrexate injections. She has had no other interval issues. She now presents for routine follow-up with CT scan. [facility] Medical History Vitamin D deficiency Annual physical exam DDD (degenerative disc disease), cervical Seasonal allergies Rheumatoid arthritis NSTEMI (non-ST elevated myocardial infarction) On beta kristen at home Smoking Atherosclerotic cardiovascular disease AAA (abdominal aortic aneurysm) without rupture Osteoporosis Surgical History Hx of cataract surgery History of abdominal aortic aneurysm (AAA) repair (~08/30/20) Hx of endoscopy H/O left wrist surgery History of hand surgery Family History Father No problems noted. Mother No problems noted. Social History Household Members: None [facility] Are you a primary skin care consultant to a significant other at home: No Do you presently have visiting nurse or other home services: No Alcohol intake: current Alcohol intake frequency: holidays/special occasions only Patient Tobacco Use Status: Current everyday Tobacco user Tobacco use type: Cigarette Cigarette Packs Per Day: 0.5 Cigarettes Per Day: 10.0 Years Smoked: 60 e-Cigarette/Vaping Use: Never Used Second Hand Smoke Exposure: No service: No Current occupational status: retired Cognitive needs: No Hearing needs: No Vision needs: Yes Review of Systems Const All systems reviewed & are unremarkable except as noted in HPI and below Reports no additional complaints ENT Reports Normal hearing present Card Denies chest pain, Denies chest pain at rest, Denies chest pain with activity and Denies pedal edema Resp Denies cough GI Denies abdominal pain Musc Denies abnormal gait, Denies muscle cramps and Denies radiating pain into limb Skin/Breast Denies skin ulcer and Denies wounds Neuro Reports Normal hearing present and Denies abnormal gait Psych Reports no additional complaints Physical Exam Const General: cooperative, healthy appearing and comfortable Orientation/consciousness: oriented to person, oriented to place and oriented to time HEENT Head: Yes normal to inspection Neck Neck: Yes normal visual inspection Carotids: no bruits Chest Chest palpation & inspection: normal inspection of the chest Resp Effort & Inspection: normal respiratory effort and able to speak in complete sentences Auscultation: clear to auscultation bilaterally, no crackles, no rales, no rhonchi and no wheezes Cardio Rate: regular rate Rhythm: regular rhythm Heart sounds: S1 normal heart sound present and S2 normal heart sound present Bruits: no carotid bruits Peripheral pulses: Peripheral pulses 2+ throughout GI Inspection: Yes normal to inspection Skin Wounds: no wounds Hair: normal Neuro General: oriented to person, oriented to place and oriented to time Cranial nerves: Yes CN's II-XII intact bilaterally and Yes Normal hearing present Cognition (Neuro): normal cognition Motor exam (neuro): 5/5 motor strength present throughout Extrem Other: venous exam: No significant superficial varicosities or spider telangiectasias, minimal edema General: No clubbing, No cyanosis and No edema Psych Appearance: grossly normal Mental Status: mental status grossly normal Speech and movement: Normal speech and movement present Results Reviewed Results Reviewed: CT angiogram dated 06/23/2024 demonstrates no evidence of endoleak stable aortic endograft. Nodular hypodense area appears to be stable. Images reviewed Assessment & Plan Assessment & Plan (1) AAA (abdominal aortic aneurysm) without rupture: Comment: 08/30/2020 - endovascular aneurysm repair with Endologix AFX device, f/u Dr Zapata Code(s): I71.4 - Abdominal aortic aneurysm, without rupture Category: Medical Qualifiers: Abdominal aorta location: infrarenal aorta Qualified Code(s): I71.43 - Infrarenal abdominal aortic aneurysm, without rupture Plan: In short patient has stable aortic endograft. We have discussed the pathophysiology of aortic aneurysms and the risk of ruptures. We have discussed rupture risk based on size. In addition we have discussed conservative measures and risk factor modification for prevention of increase in size of the aneurysm. the patient is scheduled for surveillance follow-up in approximately [address] scan. Thank you for allowing us to participate in the care of this patient Please note a longitudinal relationship has been created with the patient and we have been following and surveillance this chronic condition. Orders: Orders CT angio abdomen pelvis 1 Year I71.43 - Infrarenal abdominal aortic aneurysm, without rupture Blood Urea Nitrogen 1 Year I71.43 - Infrarenal abdominal aortic aneurysm, without rupture Creatinine 1 Year I71.43 - Infrarenal abdominal aortic aneurysm, without rupture Coding Level of Care Code Est Pt Level 4 (30481) Complex EM visit Add On G2211 Diagnoses Infrarenal abdominal aortic aneurysm (AAA) without rupture I71.43 Abdominal aorta location: infrarenal aorta
== END 2024-07-22 14:19 | disposition home or self-care (01) ==
PROVIDERS: PCP Internal Medicine; Visit Provider Surgery Vascular Surgery
DX: I71.43 Infrarenal abdominal aortic aneurysm, without rupture (principal)
CPT/HCPCS: 99214; G2211

== ENCOUNTER → 2024-07-22 13:34 | Outpatient (BNVA) | payer MEDICARE, SELFPAY | PROVIDERS: PCP Internal Medicine; Visit Provider Surgery Vascular Surgery | DX: I71.43 Infrarenal abdominal aortic aneurysm, without rupture (principal) | CPT/HCPCS: 99212 ==

== ENCOUNTER 2024-07-24 10:19 | Outpatient (REF) | payer MEDICARE, SELFPAY ==
[2024-07-24 13:17] LABS: MANUAL DIFF FLAG NO
[2024-07-24 13:24] LABS: Basophils Percent Auto 0.4 % (0-2); Eosinophils Absolute Auto 0.1 X10*3/uL (0.0-0.4); Eosinophils Percent Auto 0.9 % (0-4); Hematocrit 40.6 % (37.0-47.0); Imm Gran Abs Auto 0.01 X10*3/uL (0.00-0.03); Imm Gran Pct Auto 0.1 % (0.0-0.4); Lymphocytes Absolute Auto 1.5 X10*3/uL (1.2-4.9); Lymphocytes Percent Auto 20.3 % (20-40); Mean Corpuscular Hemoglobin 32.3 pg (27.0-33.0); Mean Platelet Volume 11.7 fL (9.4-12.3); Monocytes Absolute Auto 0.6 X10*3/uL (0.1-1.2); Monocytes Percent Auto 8.2 % (2-11); Neutrophils Absolute Auto 5.3 x10*3/uL (2.0-8.3); Neutrophils Percent Auto 70.1 % (45-73); Platelet Count 118 X10*3/uL (160-400); Red Blood Count 4.02 X10*6/uL (4.20-5.50); Red Cell Distribution Width 13.8 % (11.0-16.0); White Blood Count 7.5 X10*3/uL (4.8-10.8)
[2024-07-24 13:36] LABS: Alanine Aminotransferase 24 U/L (0-31); Aspartate Amino Transferase 27 U/L (5-31); C Reactive Protein 0.16 mg/dL (< or = 0.50); Estimated Glomerular Filt Rate > 60
[2024-07-24 14:20] LABS: Erythrocyte Sedimentation Rate 3 MM/HR (0-20)
[2024-07-25 08:24] LABS: HBS Num1 0.07 mIU/mL (0-7.99); HBc Num1 0.08 S/CO (0.00-0.79); Hepatitis B Core Antibody Nonreactive (Nonreactive); Hepatitis B Surface Antigen Negative (Negative); ~HepC Num1 0.08 S/CO (0.00-0.79); ~Hepatitis B Surface Antibody NONREACTIVE (Nonreactive); ~Hepatitis C Antibody Nonreactive (Nonreactive)
[2024-07-27 07:43] LABS: TS Negative Control Passed; TS Panel A 0; TS Panel B 1; TS Positive Control Passed; TSpotTB Negative (Negative)
== END 2024-07-24 10:20 | disposition home or self-care (01) ==
LOC: HO.HMGCLDS 10:19
PROVIDERS: PCP Internal Medicine; Visit Provider Internal Medicine Rheumatology
DX: M06.9 Rheumatoid arthritis, unspecified (principal); Z79.899 Other long term (current) drug therapy
CPT/HCPCS: 36415; 82565; 84450; 84460; 85025; 85652; 86140; 86481; 86704; 86706; 86803; 87340

== ENCOUNTER 2024-09-30 12:46 | Outpatient (AMB) | payer MEDICARE, SELFPAY ==
[2024-09-30 12:49] VITALS: BP 120/68; PULSE 69; O2SAT 98; BMI 23.7
--- NOTE | 2024-09-30 12:49 | MHC.OFFVIS ---
Vital Signs 09/30/24 12:49 Height 5 ft 4 in Weight 138 lb 6 oz BMI 23.7 BP 120/68 Blood Pressure Location Lt brachial Position Sitting Pulse 69 Pulse Source Pulse Oximeter Pulse Oximetry (%) 98 Oxygen Delivery Method Room Air Intake Visit Reasons: RA Intake Note: Patient presents for follow up on Rheumatoid arthritis. She was last seen by Dr. Ware in the [facility] on 10/30/23. Patient is requesting 90 day supply of hydroxychlorquine at this time. Allergies alendronate sodium [Fosamax] Adverse Reaction (Unknown, Verified 07/22/24 13:43) syncope HPI HPI RA: Details: She continues to have swelling in her hands. She had an episode of left knee swelling a week ago that subsided yesterday. She had difficulty walking when it occurred. Denies new infections. [facility] Medical History Vitamin D deficiency Annual physical exam DDD (degenerative disc disease), cervical Seasonal allergies Rheumatoid arthritis NSTEMI (non-ST elevated myocardial infarction) On beta kristen at home Smoking Atherosclerotic cardiovascular disease AAA (abdominal aortic aneurysm) without rupture Osteoporosis Surgical History Hx of cataract surgery History of abdominal aortic aneurysm (AAA) repair (~08/30/20) Hx of endoscopy H/O left wrist surgery History of hand surgery Family History Father No problems noted. Mother No problems noted. Social History Household Members: None Housing: Condominium Are you a primary animal care technician to a significant other at home: No Do you presently have visiting nurse or other home services: No Alcohol intake: current Alcohol intake frequency: holidays/special occasions only Patient Tobacco Use Status: Current everyday Tobacco user Tobacco use type: Cigarette Cigarette Packs Per Day: 0.5 Cigarettes Per Day: 10.0 Years Smoked: 60 e-Cigarette/Vaping Use: Never Used Second Hand Smoke Exposure: No service: No Current occupational status: retired Cognitive needs: No Hearing needs: No Vision needs: Yes Review of Systems Const All systems reviewed & are unremarkable except as noted in HPI and below Physical Exam Vital Signs: Last Vital Signs Pulse 69 09/30/24 12:49 BP 120/68 01/28/25 12:49 Pulse Ox 98 09/30/24 12:49 Oxygen Delivery Method Room Air 09/30/24 12:49 BMI result Body Mass Index 23.7 Const Other: General: Comfortable CVS: RRR Respiratory: clear to auscultation bilaterally. Good respiratory effort Skin: No lesions seen MSK: Tender to palpate right 2nd to 3rd MCP with chronic synovial thickening. She has ulnar deviation with subluxation of bilateral MCPs. She has a finger. Shoulder abduction 160 degrees bilateral. Good internal and external rotation. No joint swelling of her knees. Knee flexion is 90 degrees bilateral. No MTP tenderness. Assessment & Plan Assessment & Plan (1) Rheumatoid arthritis: Comment: Seropositive (anti CCP antibody and rheumatoid factor), deforming and nodular. Uncontrolled on current regimen. DMARD history: Remicade ineffective, Enbrel ineffective, Orencia 04/2018-05/2019 discontinued due to high co-pay. Methotrexate stopped 07/23/2018 and restarted 05/23/2019, hydroxychloroquine added 03/22/2022 due to RA painful nodules but was discontinued. methotrexate prior to 2012 to present. Code(s): M06.9 - Rheumatoid arthritis, unspecified Category: Medical Plan: Labs for disease and drug monitoring on high-risk medication ordered Short cord prednisone course prescribed Continue methotrexate 20 mg once weekly subcutaneous injection Continue folic acid 2 mg daily Return to clinic in 3 months Orders: Orders Erythrocyte Sedimentation Rate Today M06.9 - Rheumatoid arthritis, unspecified C Reactive Protein Today M06.9 - Rheumatoid arthritis, unspecified Aspartate Amino Transferase Today Z79.60 - extermination inspector (current) use of unspecified immunomodulators and immunosuppressants Complete Blood Count Auto Diff Today Z79.60 - extermination inspector (current) use of unspecified immunomodulators and immunosuppressants Creatinine Today Z79.60 - extermination inspector (current) use of unspecified immunomodulators and immunosuppressants Hepatitis B,C Profile Today M06.9 - Rheumatoid arthritis, unspecified T Spot TB Today M06.9 - Rheumatoid arthritis, unspecified Alanine Aminotransferase Today Z79.60 - extermination inspector (current) use of unspecified immunomodulators and immunosuppressants Medications: New prednisone Take 2 tablets daily for 1 week, 1 tablet daily for 1 week then stop. Take prednisone with food. 5 mg PO DAILY 35 tabs 0RF methotrexate sodium 20 mg (0.8 mL) subcut QWEEK 12 mL 0RF Refilled hydroxychloroquine Take 1-1/2 tablet daily 300 mg (1.5 x 200 mg) PO DAILY 135 tabs 1RF Coding Level of Care Code Est Pt Level 4 (24723) Complex EM visit Add On G2211 Diagnoses Rheumatoid arthritis M06.9
== END 2024-09-30 13:19 | disposition home or self-care (01) ==
PROVIDERS: PCP Internal Medicine; Visit Provider Internal Medicine Rheumatology
DX: M06.9 Rheumatoid arthritis, unspecified (principal)
CPT/HCPCS: 99214; G2211

== ENCOUNTER 2024-09-30 12:46 | Outpatient (REF) | payer MEDICARE, SELFPAY ==
[2024-09-30 17:45] LABS: MANUAL DIFF FLAG NO
[2024-09-30 17:48] LABS: Basophils Percent Auto 0.6 % (0-2); Eosinophils Percent Auto 0.6 % (0-4); Hematocrit 41.9 % (37.0-47.0); Hemoglobin 13.5 g/dl (12.0-16.0); Imm Gran Abs Auto 0.02 X10*3/uL (0.00-0.03); Imm Gran Pct Auto 0.3 % (0.0-0.4); Lymphocytes Absolute Auto 1.8 X10*3/uL (1.2-4.9); Lymphocytes Percent Auto 26.4 % (20-40); Mean Corpuscular HGB Conc 32.2 g/dl (31.0-35.0); Mean Corpuscular Hemoglobin 32.1 pg (27.0-33.0); Mean Corpuscular Volume 99.5 fL (80.0-98.0); Mean Platelet Volume 11.1 fL (9.4-12.3); Monocytes Absolute Auto 0.6 X10*3/uL (0.1-1.2); Monocytes Percent Auto 9.2 % (2-11); Neutrophils Absolute Auto 4.4 x10*3/uL (2.0-8.3); Neutrophils Percent Auto 62.9 % (45-73); Platelet Count 154 X10*3/uL (160-400); Red Blood Count 4.21 X10*6/uL (4.20-5.50); Red Cell Distribution Width 14.1 % (11.0-16.0)
[2024-09-30 18:09] LABS: Alanine Aminotransferase 28 U/L (0-31); Aspartate Amino Transferase 29 U/L (5-31); C Reactive Protein < 0.10 mg/dL (< or = 0.50); Estimated Glomerular Filt Rate > 60
[2024-09-30 18:34] LABS: Erythrocyte Sedimentation Rate 6 MM/HR (0-20)
[2024-10-01 03:45] LABS: HBS Num1 0.34 mIU/mL (0-7.99); HBc Num1 0.07 S/CO (0.00-0.79); HBsAGNum1 0.33 S/CO (0.00-0.99); Hepatitis B Core Antibody Nonreactive (Nonreactive); Hepatitis B Surface Antigen Negative (Negative); ~HepC Num1 0.07 S/CO (0.00-0.79); ~Hepatitis B Surface Antibody NONREACTIVE (Nonreactive); ~Hepatitis C Antibody Nonreactive (Nonreactive)
[2024-10-03 05:18] LABS: TS Negative Control Passed; TS Panel A 2; TS Panel B 0; TS Positive Control Passed; TSpotTB Negative (Negative)
== END 2024-09-30 12:47 | disposition home or self-care (01) ==
LOC: HO.HKASLDS 12:46
PROVIDERS: PCP Internal Medicine; Visit Provider Internal Medicine Rheumatology
DX: M06.9 Rheumatoid arthritis, unspecified (principal); Z79.60 Long term (current) use of unspecified immunomodulators and immunosuppressants
CPT/HCPCS: 36415; 82565; 84450; 84460; 85025; 85652; 86140; 86481; 86704; 86706; 86803; 87340

== ENCOUNTER 2024-11-05 12:19 | Outpatient (AMB) | payer MEDICARE, SELFPAY ==
--- NOTE | 2024-11-05 12:32 | A.OFFVIS_ITS ---
Vital Signs 11/05/24 12:33 Height 5 ft 4 in Weight 132 lb 4.438 oz BMI 22.7 BP 118/60 Blood Pressure Location Lt brachial Position Sitting Pulse 78 Pulse Source Pulse Oximeter Intake Visit Reasons: 1 yr f/p Allergies alendronate sodium [Fosamax] Adverse Reaction (Unknown, Verified 07/22/24 13:43) syncope Medication List - Last Reconciled 11/05/24 by Cheng Velasquez MD aspirin 81 mg PO DAILY atorvastatin 80 mg PO DAILY 90 days Bevespi Aerosphere 9-4.8 mcg (glycopyrrolate-formoterol) 2 puffs inhalation BID NS calcium carbonate-vitamin D3 600 mg-5 mcg (200 unit) (Calcium 600 + D(3)) 2 tabs PO DAILY cholecalciferol (vitamin D3) (Vitamin D3) 25 mcg PO DAILY famotidine 40 mg (2 x 20 mg) PO DAILY folic acid 2 mg PO DAILY hydroxychloroquine 300 mg (1.5 x 200 mg) PO DAILY methotrexate sodium 20 mg (0.8 mL) subcut QWEEK metoprolol tartrate 25 mg PO BID omeprazole 20 mg PO DAILY prednisone 5 mg PO DAILY HPI Comments Details: Liza returns for follow-up regarding coronary disease. To recall, in 2017, she was admitted for GI bleeding from gastric ulcer. At that time she had an NSTEMI. She underwent noninvasive testing but preferred not to have any catheterization. Hence she is on empiric medications for stable CAD. Since last seen, no new concerns. She states she feels good. No angina. [facility], [facility] Medical History Vitamin D deficiency Annual physical exam DDD (degenerative disc disease), cervical Seasonal allergies Rheumatoid arthritis NSTEMI (non-ST elevated myocardial infarction) On beta kristen at home Smoking Atherosclerotic cardiovascular disease AAA (abdominal aortic aneurysm) without rupture Osteoporosis Surgical History Hx of cataract surgery History of abdominal aortic aneurysm (AAA) repair (~08/30/20) Hx of endoscopy H/O left wrist surgery History of hand surgery Family History Father No problems noted. Mother No problems noted. Social History Household Members: None [place] [facility] [place] a primary resident care coordinator to a significant other at home: No Do you presently have visiting nurse or other home services: No Alcohol intake: current Alcohol intake frequency: holidays/special occasions only Patient Tobacco Use Status: Current everyday Tobacco user Tobacco use type: Cigarette Cigarette Packs Per Day: 0.5 Cigarettes Per Day: 10.0 Years Smoked: 60 e-Cigarette/Vaping Use: Never Used Second Hand Smoke Exposure: No service: No Current occupational status: retired Cognitive needs: No Hearing needs: No Vision needs: Yes Review of Systems Const Denies weakness ENT Denies dizziness Card Denies chest pain, Denies chest pain with activity, Denies syncope, Denies rapid heart rate, Denies pedal edema, Denies edema, Denies leg edema, Denies lightheadedness, Denies palpitations, Denies dyspnea, Denies dyspnea on exertion and Denies orthopnea Resp Denies cough, Denies dyspnea and Denies dyspnea on exertion GI Denies hematochezia and Denies change in stool character Musc Denies abnormal gait, Denies muscle cramps, Denies muscle weakness, Denies numbness, Denies radiating pain into limb and Denies tingling Neuro Denies abnormal gait, Denies dizziness, Denies syncope, Denies numbness, Denies tingling and Denies weakness Endo Denies palpitations Physical Exam Vital Signs: Last Vital Signs Pulse 78 11/05/24 12:33 BP 118/60 11/05/24 12:33 BMI result Body Mass Index 22.7 Const General: comfortable and no acute distress Orientation/consciousness: patient oriented x3 HEENT Other: Unremarkable Head: Yes normal to inspection Neck Neck: Yes normal visual inspection Chest Chest palpation & inspection: normal inspection of the chest Resp Auscultation: clear to auscultation bilaterally Cardio Palpation: normal PMI Heart sounds: S1 normal heart sound present, S2 normal heart sound present, no gallops, Murmur heart sound present systolic II/ and no rubs GI Palpation (GI): Soft to palpation Back/Spine/Pelvis Other: unremarkable Skin General skin exam: no rashes or lesions noted Neuro General: patient oriented x3 Extrem General: Yes normal to inspection Psych Mental Status: mental status grossly normal Assessment & Plan Assessment & Plan (1) Atherosclerotic cardiovascular disease: Code(s): I25.10 - Atherosclerotic heart disease of ken[place] coronary artery without angina pectoris Category: Medical (2) AAA (abdominal aortic aneurysm) without rupture: Comment: 08/30/2020 - endovascular aneurysm repair with Endologix AFX device, f/u Dr Zapata Code(s): I71.4 - Abdominal aortic aneurysm, without rupture Category: Medical Qualifiers: Abdominal aorta location: infrarenal aorta Qualified Code(s): I71.43 - Infrarenal abdominal aortic aneurysm, without rupture (3) Smoking: Comment: 09/04 PPDx 50 yrs Code(s): F17.200 - Nicotine dependence, unspecified, uncomplicated Category: Social Hx Plan In the stress test from 2016, she had apical as well as lateral ischemia. She was not interested in cardiac catheterization then. This has been repeated in 2019 and shows a fixed defect in the basal lateral/anterolateral wall which could be a prior infarct. No definitive ischemia. Echocardiogram 2019 with normal LVEF, 60-65% and basal inferior hypokinesis. In the past, cardiac catheterization discussed but she never was interested and hence not pursued. Clinically, no angina. She remains on aspirin, metoprolol, statins. Last LDL cholesterol 42 mg/dL. Smoking cessation discussed many times but she would like to just continue smoking although she is aware of all the problems that can cause. With regard to carotid stenosis, she will need to repeat ultrasound. She would like to minimize follow-up visits as much as possible. Hence can scheduled for 2 years. In the interim, call with concerns. Orders: Orders US carotid duplex BI Today I65.23 - Occlusion and stenosis of bilateral carotid arteries Coding Level of Care Code Est Pt Level 4 (97134) Complex EM visit Add On G2211 Diagnoses Atherosclerotic cardiovascular disease I25.10 Infrarenal abdominal aortic aneurysm (AAA) without rupture I71.43 Abdominal aorta location: infrarenal aorta Smoking F17.200
[2024-11-05 12:33] VITALS: BP 118/60; PULSE 78; BMI 22.7
== END 2024-11-05 12:49 | disposition home or self-care (01) ==
PROVIDERS: PCP Internal Medicine; Visit Provider Internal Medicine
DX: I25.10 Atherosclerotic heart disease of native coronary artery without angina pectoris (principal); I71.43 Infrarenal abdominal aortic aneurysm, without rupture; F17.200 Nicotine dependence, unspecified, uncomplicated
CPT/HCPCS: 99214; G2211

== ENCOUNTER → 2024-11-05 12:19 | Outpatient (BNVA) | payer MEDICARE, SELFPAY | PROVIDERS: PCP Internal Medicine; Visit Provider Internal Medicine | DX: I25.10 Atherosclerotic heart disease of native coronary artery without angina pectoris (principal); I71.43 Infrarenal abdominal aortic aneurysm, without rupture; I65.23 Occlusion and stenosis of bilateral carotid arteries; F17.210 Nicotine dependence, cigarettes, uncomplicated | CPT/HCPCS: 99212 ==

== ENCOUNTER 2024-12-30 12:42 | Outpatient (REF) | payer MEDICARE, SELFPAY ==
[2024-12-30 17:34] LABS: MANUAL DIFF FLAG NO
[2024-12-30 17:49] LABS: Basophils Percent Auto 0.5 % (0-2); Eosinophils Absolute Auto 0.1 X10*3/uL (0.0-0.4); Eosinophils Percent Auto 0.6 % (0-4); Hematocrit 43.9 % (37.0-47.0); Hemoglobin 14.3 g/dl (12.0-16.0); Imm Gran Abs Auto 0.03 X10*3/uL (0.00-0.03); Imm Gran Pct Auto 0.4 % (0.0-0.4); Lymphocytes Absolute Auto 1.5 X10*3/uL (1.2-4.9); Lymphocytes Percent Auto 17.9 % (20-40); Mean Corpuscular HGB Conc 32.6 g/dl (31.0-35.0); Mean Corpuscular Hemoglobin 32.5 pg (27.0-33.0); Mean Corpuscular Volume 99.8 fL (80.0-98.0); Mean Platelet Volume 11.6 fL (9.4-12.3); Monocytes Absolute Auto 0.5 X10*3/uL (0.1-1.2); Monocytes Percent Auto 6.5 % (2-11); Neutrophils Percent Auto 74.1 % (45-73); Platelet Count 134 X10*3/uL (160-400); Red Cell Distribution Width 13.8 % (11.0-16.0); White Blood Count 8.1 X10*3/uL (4.8-10.8)
[2024-12-30 18:05] LABS: Alanine Aminotransferase 22 U/L (0-31); Aspartate Amino Transferase 25 U/L (5-31); Estimated Glomerular Filt Rate > 60
[2024-12-30 18:44] LABS: Erythrocyte Sedimentation Rate 4 MM/HR (0-20)
== END 2024-12-30 12:43 | disposition home or self-care (01) ==
LOC: HO.HKASLDS 12:42
PROVIDERS: PCP Internal Medicine; Visit Provider Internal Medicine Rheumatology
DX: Z79.899 Other long term (current) drug therapy (principal); Z79.60 Long term (current) use of unspecified immunomodulators and immunosuppressants
CPT/HCPCS: 36415; 82565; 84450; 84460; 85025; 85652; 86140

== ENCOUNTER 2024-12-30 12:42 | Outpatient (AMB) | payer MEDICARE, SELFPAY ==
--- NOTE | 2024-12-30 12:49 | A.OFFVIS_ITS ---
Vital Signs 12/30/24 12:51 Height 5 ft 4 in Weight 138 lb 7.205 oz BMI 23.8 BP 104/70 Blood Pressure Location Rt brachial Position Sitting Pulse 89 Pulse Source Pulse Oximeter Pulse Oximetry (%) 96 Oxygen Delivery Method Room Air Intake Visit Reasons: 3 mnts Intake Note: Patient presents for follow up on Rheumatoid arthritis. Accompanied by: Self / Same As Patient Allergies alendronate sodium [Fosamax] Adverse Reaction (Unknown, Verified 12/30/24 12:51) syncope HPI HPI 3 mnts: Details: Prednisone course resolved swelling but it reoccurred. No recent infections PFSH Medical History Vitamin D deficiency Annual physical exam DDD (degenerative disc disease), cervical Seasonal allergies Rheumatoid arthritis NSTEMI (non-ST elevated myocardial infarction) On beta kristen at home Smoking Atherosclerotic cardiovascular disease AAA (abdominal aortic aneurysm) without rupture Osteoporosis Surgical History Hx of cataract surgery History of abdominal aortic aneurysm (AAA) repair (~08/30/20) Hx of endoscopy H/O left wrist surgery History of hand surgery Family History Father No problems noted. Mother No problems noted. Social History Household Members: None Housing: Condominium Are you a primary medicare specialist to a significant other at home: No Do you presently have visiting nurse or other home services: No Alcohol intake: current Alcohol intake frequency: holidays/special occasions only Patient Tobacco Use Status: Current everyday Tobacco user Tobacco use type: Cigarette Cigarette Packs Per Day: 0.5 Cigarettes Per Day: 10.0 Years Smoked: 60 e-Cigarette/Vaping Use: Never Used Second Hand Smoke Exposure: No service: No Current occupational status: retired Cognitive needs: No Hearing needs: No Vision needs: Yes Physical Exam Vital Signs: Last Vital Signs Pulse 89 12/30/24 12:51 BP 104/70 12/30/24 12:51 Pulse Ox 96 12/30/24 12:51 Oxygen Delivery Method Room Air 12/30/24 12:51 BMI result Body Mass Index 23.8 Const Other: General: Comfortable CVS: RRR Respiratory: clear to auscultation bilaterally. Good respiratory effort Skin: Rheumatoid nodule left IP palmar aspect MSK: Tender to palpate right 2nd to 3rd MCP with chronic synovial thickening. She has ulnar deviation with subluxation of bilateral MCPs. She has a Z finger. Shoulder abduction 160 degrees bilateral. Good internal and external rotation. No joint swelling of her knees. Knee flexion is 90 degrees bilateral. No MTP tenderness. Office Procedures AMB Joint Injection/Aspiration Joint Injection/Aspiration Details: Right 3rd MCP Prep: site was prepped using aseptic technique Injected: 10 mg of, Kenalog, with 0.25 mL of and 1% plain lidocaine Procedure: The patient tolerated the procedure well. Postprocedure protocol was discussed with patient. Coding - Small Joint Procedure code (CPT) selection complete Office Meds lidocaine (PF) 10 mg/mL (1 %) injection solution Performing Provider: Albert Ware MD Performing Location: [facility] [place] [facility] Administered by: Albert Ware MD on 12/30/24 14:04 Dose Route Admin Location Dispensed Lot Number Expiration Date [facility] [employer] 2.5 mg Infiltration 2 mL [id number] [facility] Kenalog 40 mg/mL suspension for injection Performing Provider: Albert Ware MD Performing Location: [facility] [place] [facility] Administered by: Albert Ware MD on 12/30/24 14:04 Dose Route Admin Location Dispensed Lot Number Expiration Date [facility] [employer] 10 mg intra-articular 1 mL AP [id number] [facility] Assessment & Plan Assessment & Plan (1) Rheumatoid arthritis: Comment: Seropositive (anti CCP antibody and rheumatoid factor), deforming and nodular. She continues to have synovitis right 2nd-3rd MCP. She agreed to trial local cortisone injection to resolve synovitis. DMARD history: Remicade ineffective, Enbrel ineffective, Orencia 04/2018-05/2019 discontinued due to high co-pay. Methotrexate stopped 07/23/2018 and restarted 05/23/2019, hydroxychloroquine added 03/22/2022 due to RA painful nodules but was discontinued. methotrexate prior to 2012 to present. Code(s): M06.9 - Rheumatoid arthritis, unspecified Category: Medical Plan: Labs for disease and drug monitoring on high-risk medication ordered She received cortisone injection R MCP. If no change next visit, we will consider reintroducing Enbrel is patient reports Enbrel was effective but she had to discontinue it due to high co-pay in the past on a different insurance plan. Continue methotrexate 20 mg once weekly subcutaneous injection Continue folic acid 2 mg daily Return to clinic in 3 months Orders: Orders Alanine Aminotransferase Today Z79.60 - residential (current) use of unspecified immunomodulators and immunosuppressants Erythrocyte Sedimentation Rate Today Z79.899 - Other manager long term care (current) drug therapy C Reactive Protein Today Z79.899 - Other prison (current) drug therapy Aspartate Amino Transferase Today Z79.60 - residential (current) use of unspecified immunomodulators and immunosuppressants Complete Blood Count Auto Diff Today Z79.60 - residential (current) use of unspecified immunomodulators and immunosuppressants Creatinine Today Z79.60 - residential (current) use of unspecified immunomodulators and immunosuppressants AMB Joint Injection/Aspiration Today M06.9 - Rheumatoid arthritis, unspecified Medications: New lidocaine (PF) 2.5 mg (0.25 mL) Infiltration ONCE 0.25 mL 0RF M06.9 - Rheumatoid arthritis, unspecified syringe with needle (Monoject Tuberculin Syringe) Use once weekly with methotrexate. Please dispense needle with safety. 100 ea 0RF Kenalog (triamcinolone acetonide) 10 mg (0.25 mL) intra-articular ONCE 0.25 mL 0RF NS M06.9 - Rheumatoid arthritis, unspecified Refilled methotrexate sodium 20 mg (0.8 mL) subcut QWEEK 12 mL 0RF Coding Level of Care Code Est Pt Level 4 (25291) Complex EM visit Add On G2211 Diagnoses Rheumatoid arthritis M06.9 CPT Codes Coding - - Small joint: - Small Joint ([id number])
[2024-12-30 12:51] VITALS: BP 104/70; PULSE 89; O2SAT 96; BMI 23.8
== END 2024-12-30 13:42 | disposition home or self-care (01) ==
LOC: HO.RHES 12:43
PROVIDERS: PCP Internal Medicine; Visit Provider Internal Medicine Rheumatology
DX: M06.09 Rheumatoid arthritis without rheumatoid factor, multiple sites (principal); M79.641 Pain in right hand
CPT/HCPCS: 20600; 99214

== ENCOUNTER 2025-04-01 12:33 | Outpatient (AMB) | payer MEDICARE, SELFPAY ==
--- NOTE | 2025-04-01 12:34 | A.OFFVIS_ITS ---
Vital Signs 04/01/25 12:35 Height 5 ft 4 in Weight 136 lb BMI 23.3 BP 90/54 L Blood Pressure Location Rt brachial Position Sitting Pulse 77 Pulse Source Pulse Oximeter Pulse Oximetry (%) 97 Oxygen Delivery Method Room Air Comment bp 100/52 left arm Intake Visit Reasons: 3 months Intake Note: Patient presents for follow up on Rheumatoid arthritis. Accompanied by: Self / Same As Patient Allergies alendronate sodium (Fosamax) Adverse Reaction (Unknown, Verified 04/01/25 12:42) syncope HPI HPI 3 months: Details: Prednisone course resolved swelling in her right hand. She has reduced joint pain and stiffness. [facility] Medical History Vitamin D deficiency Annual physical exam DDD (degenerative disc disease), cervical Seasonal allergies Rheumatoid arthritis NSTEMI (non-ST elevated myocardial infarction) On beta kristen at home Smoking Atherosclerotic cardiovascular disease AAA (abdominal aortic aneurysm) without rupture Osteoporosis Surgical History Hx of cataract surgery History of abdominal aortic aneurysm (AAA) repair (~08/30/20) Hx of endoscopy H/O left wrist surgery History of hand surgery Family History Father No problems noted. Mother No problems noted. Social History [facility]hold Members: None [facility] Are you a primary acute care physical therapist to a significant other at home: No Do you presently have visiting nurse or other home services: No Alcohol intake: current Alcohol intake frequency: holidays/special occasions only Patient Tobacco Use Status: Current everyday Tobacco user Tobacco use type: Cigarette Cigarette Packs Per Day: 0.5 Cigarettes Per Day: 10.0 Years Smoked: 60 e-Cigarette/Vaping Use: Never Used Second Hand Smoke Exposure: No service: No Current occupational status: retired Cognitive needs: No Hearing needs: No Vision needs: Yes Physical Exam Vital Signs: Last Vital Signs Pulse 77 04/01/25 12:35 BP 90/54 L 04/01/25 12:35 Pulse Ox 97 04/01/25 12:35 Oxygen Delivery Method Room Air 04/01/25 12:35 BMI result Body Mass Index 23.3 Const Other: General: Comfortable CVS: RRR Respiratory: clear to auscultation bilaterally. Good respiratory effort Skin: Rheumatoid nodule left IP palmar aspect MSK: No tenderness. No synovitis She has ulnar deviation with subluxation of bilateral MCPs. She has a Z finger. Shoulder abduction 160 degrees bilateral. Good internal and external rotation. No joint swelling of her knees. Knee flexion is 90 degrees bilateral. No MTP tenderness. She has nodule palmar ulnar aspect of left thumb. Assessment & Plan Assessment & Plan (1) Rheumatoid arthritis: Comment: Seropositive (anti CCP antibody and rheumatoid factor), deforming and nodular. Synovitis resolved with prednisone course. DMARD history: Remicade ineffective, Enbrel ineffective, Orencia 04/2018-05/2019 discontinued due to high co-pay. Methotrexate stopped 07/23/2018 and restarted 05/23/2019, hydroxychloroquine added 03/22/2022 due to RA painful nodules but was discontinued. methotrexate prior to 2012 to present. Code(s): M06.9 - Rheumatoid arthritis, unspecified Category: Medical Plan: Labs for disease and drug monitoring on high-risk medication ordered Continue methotrexate 20 mg once weekly subcutaneous injection Continue HCQ 300mg daily. Eye exam 03/26/2025 OCT and VF Continue folic acid 2 mg daily Return to clinic in 3 months Orders: Orders Alanine Aminotransferase Today Z79.60 - shelter (current) use of unspecified immunomodulators and immunosuppressants Creatinine Today Z79.60 - shelter (current) use of unspecified immunomodulators and immunosuppressants Complete Blood Count Auto Diff 3 Months Z79.60 - termination clerk (current) use of unspecified immunomodulators and immunosuppressants C Reactive Protein 3 Months Z79.60 - termination clerk (current) use of unspecified immunomodulators and immunosuppressants Erythrocyte Sedimentation Rate Today Z79.60 - shelter (current) use of unspecified immunomodulators and immunosuppressants Complete Blood Count Auto Diff Today Z79.60 - shelter (current) use of unspecified immunomodulators and immunosuppressants C Reactive Protein Today Z79.60 - termination clerk (current) use of unspecified immunomodulators and immunosuppressants Aspartate Amino Transferase Today Z79.60 - shelter (current) use of unspecified immunomodulators and immunosuppressants Erythrocyte Sedimentation Rate 3 Months Z79.60 - termination clerk (current) use of unspecified immunomodulators and immunosuppressants Alanine Aminotransferase 3 Months Z79.60 - shelter (current) use of unspecified immunomodulators and immunosuppressants Aspartate Amino Transferase 3 Months Z79.60 - termination clerk (current) use of uns pecified immunomodulators and immunosuppressants Creatinine 3 Months Z79.60 - termination clerk (current) use of unspecified immunomodulators and immunosuppressants Medications: Refilled methotrexate sodium 20 mg (0.8 mL) subcut QWEEK 12 mL 0RF hydroxychloroquine Take 1-1/2 tablet daily 300 mg (1.5 x 200 mg) PO DAILY 135 tabs 1RF syringe with needle (Monoject Tuberculin Syringe) Use once weekly with methotrexate. Please dispense needle with safety. 100 ea 0RF Coding Level of Care Code Est Pt Level 4 (19405) Complex EM visit Add On G2211 Diagnoses Rheumatoid arthritis M06.9
[2025-04-01 12:35] VITALS: BP 90/54; PULSE 77; O2SAT 97; BMI 23.3
--- OUTSIDE RECORDS SUMMARY | 2025-04-01 13:08 | XMS_ITS | Patient Health Record ---
Author Organization [facility] Address [address] [place] [address] Care Team Providers Care Shredding Floor Equipment Operator Name Role Phone Akil Starks MD Primary Care Provider GraysonReba Valderrama Unavailable [phone] Reason For Referral No Information Medications Medication SIG (Take, Route, Frequency, Duration) Notes Start Date End Date Status Custom Orthotics . as directed . .; Dur ation: . 04/29/2012 Active Methotrexate 2.5 MG 3 tablets Orally; Du ration: 30 day(s) Active Folic Acid 1 MG 1 tablet Orally Once a day; Duration: 30 day(s) Active CeleBREX 200 MG 1 capsule Orally Onc e a day; Duration: 30 day(s) Active Alendronate Sodium 70 MG 1 tablet Orally Once a Week; Duration: 30 day(s) Active Problems Problem Type SNOMED Code ICD Code Onset Dates Problem Status W/U Status Risk Notes Problem Arthralgia (30343736) Arthralgia (719.40) Active confirmed Problem Rheumatoid arthritis (43672265) Arthriis - Rheumatoid (714.0) Active confirmed Problem Hallux valgus (541227490) Hallux Valgus (735.0) Active confirmed Problem Hammer toe (952526121) Hammer toe (735.4) Active confirmed Problem Pain in limb (44202340) Pain in Limb (729.5) Active confirmed Plan Of Treatment Pending Test Test Name Order Date X ray : Foot, left 3V 04/29/2012 X ray : Foot, right 3V 04/29/2012 Insurance Providers Payer Name Payer Address Payer Phone Subscriber Number Group Number Insured Name Patient Relationship to Insured Coverage Start Date Coverage End Date Local [employer] [address] [place], [place] [id number] Liza Jain Self - patient is the insured [employer] [address] [place] [address] [phone] [id number] Liza Jain Self - patient is the insured Medical (General) History Medical History History ICD Code Arthritis osteoporosis measles mumps chicken pox rheumatoid arthritis
--- OUTSIDE RECORDS SUMMARY | 2025-04-01 13:08 | XMS_ITS | Patient Health Record ---
Author Organization [facility] Address [address] [place] [address] Care Team Providers Care Photoengraving Apprentice Name Role Phone Annie Bocanegra MD Primary Care Provider Brandon Arriaga Unavailable [phone] MARY BLANCA Unavailable Unavailable Reason For Referral No Information Medications Medication SIG (Take, Route, Frequency, Duration) Notes Start Date End Date Status Omeprazole 20 MG TAKE ONE CAPSULE BY MOUTH ONCE DAILY Oral Once a day Active Aspir-Low 81 MG TAKE ONE TABLET BY M OUTH ONCE DAILY Oral for 90 Active Atorvastatin Calcium 80 MG TAKE ONE TABL ET BY MOUTH EVERY DAY Oral for 30 Active Metoprolol Tartrate 25 MG 1 tablet with food Orally Twice a day Active Orencia Active Folic Acid Active Calcium Active Social History Tobacco Use: Social History Observation Description Date Details (start date - stop date) Current Smoker NA - NA Tobacco Use/Smoking Question Answer Notes Patient is a current smoker How often do you smoke cigarettes? every day How many cigarettes a day do you smoke? 6-10 Alcohol Screen Question Answer Notes Did you have a drink contain ing alcohol in the past year? Yes How often did you have a dri nk containing alcohol in the past year? Never (0 point) How many drinks did you have on a typical day when you were drinking in the past year? 1 or 2 drinks (0 point) Points 0 Interpretation Negative Section Notes: Very occasional glass of win e at dinner; smokes 5-10 cigs QD Problems Problem Type SNOMED Code ICD Code Onset Dates Problem Status W/U Status Risk Notes Problem [id number] Acute gastric ulcer with hemorrhage (K25.0) Active confirmed Plan Of Treatment No Information Insurance Providers Payer Name Payer Address Payer Phone Subscriber Number Group Number Insured Name Patient Relationship to Insured Coverage Start Date Coverage End Date [facility] [address] [place] [phone] [id number] ARTUR RODRIGUEZ Self - patient is the insured Medical (General) History Medical History History ICD Code Heart attack -07/2017 Denies DM,CVA,Lung disease,renal disease Rheumatoid arthritis Degenerative arthritis in cervical spine UGI Bleed--benign gastric ul cer and bx neg for H.pylori on EGD with Dr. Joyce in 07/2017 Abdominal aortic aneurysm--being followe d by Dr. Zapata Surgical History Surgery Date(Month/Year) middle finger right 2017 left wrist plate and screws 2015
== END 2025-04-01 13:11 | disposition home or self-care (01) ==
LOC: HO.RHES 12:33
PROVIDERS: PCP Internal Medicine; Visit Provider Internal Medicine Rheumatology
DX: M06.9 Rheumatoid arthritis, unspecified (principal)
CPT/HCPCS: 99214; G2211

== ENCOUNTER 2025-04-01 12:33 | Outpatient (REF) | payer MEDICARE, SELFPAY ==
[2025-04-01 18:01] LABS: MANUAL DIFF FLAG NO
[2025-04-01 18:10] LABS: Imm Gran Abs Auto 0.02 X10*3/uL (0.00-0.03); Imm Gran Pct Auto 0.3 % (0.0-0.4); NRBC Abs Auto 0.000 X10*3/uL (0.0-0.012); NRBC Pct Auto 0.0 /100WBC (0.0-0.2); PLT CLUMP 1; SCAN SMEAR FLAG 1
[2025-04-01 18:12] LABS: Hematocrit 40.8 % (37.0-47.0); Hemoglobin 13.0 g/dl (12.0-16.0); Lymphocytes Absolute Auto 1.8 X10*3/uL (1.2-4.9); Mean Corpuscular HGB Conc 31.9 g/dl (31.0-35.0); Mean Corpuscular Hemoglobin 31.9 pg (27.0-33.0); Mean Corpuscular Volume 100.2 fL (80.0-98.0); Red Blood Count 4.07 X10*6/uL (4.20-5.50)
[2025-04-01 18:21] LABS: Platelet Count 120 X10*3/uL (160-400); White Blood Count 6.8 X10*3/uL (4.8-10.8)
[2025-04-01 18:31] LABS: Alanine Aminotransferase 18 U/L (0-31); Aspartate Amino Transferase 25 U/L (5-31); Estimated Glomerular Filt Rate > 60
== END 2025-04-01 12:34 | disposition home or self-care (01) ==
LOC: HO.HKASLDS 12:33
PROVIDERS: PCP Internal Medicine; Visit Provider Internal Medicine Rheumatology
DX: M06.9 Rheumatoid arthritis, unspecified (principal); Z79.631 Long term (current) use of antimetabolite agent
CPT/HCPCS: 36415; 82565; 84450; 84460; 85025; 85652; 86140

== ENCOUNTER 2025-07-09 12:52 | Outpatient (AMB) | payer MEDICARE, SELFPAY ==
--- NOTE | 2025-07-09 12:55 | A.OFFVIS_ITS ---
Vital Signs 07/09/25 12:56 Height 5 ft 4 in Weight 136 lb 0.403 oz BMI 23.3 BP 120/80 Blood Pressure Location Lt brachial Position Sitting Pulse 74 Pulse Source Pulse Oximeter Pulse Oximetry (%) 98 Oxygen Delivery Method Room Air Intake Visit Reasons: 3 Months Intake Note: Patient presents for follow up on Rheumatoid arthritis. Accompanied by: Self / Same As Patient Allergies alendronate sodium (Fosamax) Adverse Reaction (Unknown, Verified 07/09/25 12:55) syncope HPI HPI 3 Months: Details: She feels well. No recent flare. Swelling in her MCPs have not returned. She has had flu shot on 2 occasions in the past resulting in flu-like symptoms. She avoids the flu shot. [facility] Medical History Vitamin D deficiency Annual physical exam DDD (degenerative disc disease), cervical Seasonal allergies Rheumatoid arthritis NSTEMI (non-ST elevated myocardial infarction) On beta kristen at home Smoking Atherosclerotic cardiovascular disease AAA (abdominal aortic aneurysm) without rupture Osteoporosis Surgical History Hx of cataract surgery History of abdominal aortic aneurysm (AAA) repair (~08/30/20) Hx of endoscopy H/O left wrist surgery History of hand surgery Family History Father No problems noted. Mother No problems noted. Social History Household Members: None Housing: Condominium Are you a primary director of health care marketing to a significant other at home: No Do you presently have visiting nurse or other home services: No Alcohol intake: current Alcohol intake frequency: holidays/special occasions only Patient Tobacco Use Status: Current everyday Tobacco user Tobacco use type: Cigarette Cigarette Packs Per Day: 0.5 Cigarettes Per Day: 10.0 Years Smoked: 60 e-Cigarette/Vaping Use: Never Used Second Hand Smoke Exposure: No service: No Current occupational status: retired Cognitive needs: No Hearing needs: No Vision needs: Yes Physical Exam Vital Signs: Last Vital Signs Pulse 74 07/09/25 12:56 BP 120/80 07/09/25 12:56 Pulse Ox 98 07/09/25 12:56 Oxygen Delivery Method Room Air 11/06/25 12:56 BMI result Body Mass Index 23.3 Const Other: General: Comfortable CVS: RRR Respiratory: clear to auscultation bilaterally. Good respiratory effort Skin: Rheumatoid nodule left IP palmar aspect MSK: No tenderness. No synovitis. She has ulnar deviation with subluxation of bilateral MCPs. She has a Z finger. Shoulder abduction 160 degrees bilateral. Good internal and external rotation. No joint swelling of her knees. Knee flexion is 90 degrees bilateral. No MTP tenderness. She has nodule palmar ulnar aspect of left thumb. Assessment & Plan Assessment & Plan (1) Rheumatoid arthritis: Comment: Seropositive (anti CCP antibody and rheumatoid factor), deforming and nodular. In remission on monotherapy with methotrexate. DMARD history: Remicade ineffective, Enbrel ineffective, Orencia 04/2018-05/2019 discontinued due to high co-pay. Methotrexate stopped 07/23/2018 and restarted 05/23/2019, hydroxychloroquine added 03/22/2022 due to RA painful nodules but was discontinued. methotrexate prior to 2012 to present. Code(s): M06.9 - Rheumatoid arthritis, unspecified Category: Medical Plan: Labs for disease and drug monitoring on high-risk medication ordered Continue methotrexate 20 mg once weekly subcutaneous injection Continue HCQ 300mg daily. Eye exam 03/26/2025 OCT and VF Continue folic acid 2 mg daily Return to clinic in 3 months Orders: Orders Alanine Aminotransferase Today Z79.899 - Other joint terminal attack controller (current) drug therapy Aspartate Amino Transferase Today Z79.899 - Other joint terminal attack controller (current) drug therapy Creatinine Today Z79.899 - Other chcf (current) drug therapy C Reactive Protein Today Z79.899 - Other chcf (current) drug therapy Erythrocyte Sedimentation Rate Today Z79.899 - Other chcf (current) drug therapy Complete Blood Count Auto Diff Today Z79.899 - Other joint terminal attack controller (current) drug therapy Medications: Refilled methotrexate sodium 20 mg (0.8 mL) subcut QWEEK 12 mL 0RF syringe with needle (Monoject Tuberculin Syringe) Use once weekly with methotrexate. Please dispense needle with safety. 50 ea 4RF folic acid 2 mg (2 x 1 mg) PO DAILY 180 tabs 4RF Coding Level of Care Code Est Pt Level 4 (31035) Complex EM visit Add On G2211 Diagnoses Rheumatoid arthritis M06.9
[2025-07-09 12:56] VITALS: BP 120/80; PULSE 74; O2SAT 98; BMI 23.3
--- OUTSIDE RECORDS SUMMARY | 2025-07-09 15:51 | XMS_ITS | Patient Health Record ---
Author Organization [facility] Address [address] [place] [address] Care Team Providers Care Nurse'S Companion Name Role Phone Akil Starks MD Primary Care Provider GraysonReba Valderrama Unavailable [phone] Reason For Referral No Information Medications Medication [...] Status W/U Status Risk Notes Problem Arthralgia (61940956) Arthralgia (719.40) Active confirmed Problem Rheumatoid arthritis (97603068) Arthriis - Rheumatoid (714.0) Active confirmed Problem Hallux valgus (115923955) Hallux Valgus (735.0) Active confirmed Problem Hammer toe (796511937) Hammer toe (735.4) Active confirmed Problem Pain in limb (12785835) Pain in Limb (729.5) Active confirmed Plan Of Treatment Pending Test Test Name Order Date X ray : Foot, left 3V 04/29/2012 X ray : Foot, right 3V 04/29/2012 Insurance Providers Payer Name Payer Address Payer Phone Subscriber Number Group Number Insured Name Patient Relationship to Insured Coverage Start Date Coverage End Date Local [employer] [address] [place], [place] [id number] Liza Jain Self - patient is the insured Medicare National [employer] [address] [place] [address] [id number] Liza Jain Self - patient is the insured Medical (General) History Medical History History ICD Code Arthritis osteoporosis measles mumps chicken pox rheumatoid arthritis
--- OUTSIDE RECORDS SUMMARY | 2025-07-09 15:52 | XMS_ITS | Patient Health Record ---
Author Organization [facility] Address [address] [place] [address] Care Team Providers Care Electrophysiology Tech Name Role Phone Annie Bocanegra MD Primary Care Provider Brandon Arriaga Unavailable [phone] MARY BLACNA Unavailable Unavailable Reason For Referral No Information Medications Medication SIG (Take, Route, Frequency, Duration) Notes Start Date End Date Status Omeprazole 20 MG TAKE ONE CAPSULE BY MOUTH ONCE DAILY Oral Once a day Active Aspir-Low 81 MG TAKE ONE TABLET BY M OUTH ONCE DAILY Oral; Duration: 90 Active Atorvastatin Calcium 80 MG TAKE ONE TABL ET BY MOUTH EVERY DAY Oral; Duration: 30 Active Metoprolol Tartrate 25 MG 1 [...] Problem Status W/U Status Risk Notes Problem Acute gastric ulcer with hemorrhage (10000861) Acute gastric ulcer with hemorrhage (K25.0) Active confirmed Plan Of Treatment No Information Insurance Providers Payer Name Payer Address Payer Phone Subscriber Number Group Number Insured Name Patient Relationship to Insured Coverage Start Date Coverage End Date [facility] [place] [address] [place] [phone] [id number] ARTUR RODRIGUEZ Self - patient is the [...]
== END 2025-07-09 13:21 | disposition home or self-care (01) ==
LOC: HO.RHES 12:53
PROVIDERS: PCP Internal Medicine; Visit Provider Internal Medicine Rheumatology
DX: M06.9 Rheumatoid arthritis, unspecified (principal)
CPT/HCPCS: 99214; G2211

== ENCOUNTER 2025-07-09 12:52 | Outpatient (REF) | payer MEDICARE, SELFPAY ==
[2025-07-09 17:29] LABS: MANUAL DIFF FLAG NO
[2025-07-09 17:45] LABS: Hematocrit 43.3 % (37.0-47.0); Hemoglobin 13.5 g/dl (12.0-16.0); Imm Gran Abs Auto 0.02 X10*3/uL (0.00-0.03); Imm Gran Pct Auto 0.2 % (0.0-0.4); Lymphocytes Absolute Auto 2.1 X10*3/uL (1.2-4.9); Mean Corpuscular HGB Conc 31.2 g/dl (31.0-35.0); Mean Corpuscular Hemoglobin 31.8 pg (27.0-33.0); Mean Corpuscular Volume 102.1 fL (80.0-98.0); NRBC Abs Auto 0.000 X10*3/uL (0.0-0.012); NRBC Pct Auto 0.0 /100WBC (0.0-0.2); Platelet Count 122 X10*3/uL (160-400); Red Blood Count 4.24 X10*6/uL (4.20-5.50); White Blood Count 8.4 X10*3/uL (4.8-10.8)
[2025-07-09 17:53] LABS: Alanine Aminotransferase 27 U/L (0-31); Aspartate Amino Transferase 28 U/L (5-31); Estimated Glomerular Filt Rate > 60
== END 2025-07-09 12:53 | disposition home or self-care (01) ==
LOC: HO.HKASLDS 12:52
PROVIDERS: PCP Internal Medicine; Visit Provider Internal Medicine Rheumatology
DX: M06.30 Rheumatoid nodule, unspecified site (principal); Z51.81 Encounter for therapeutic drug level monitoring; Z79.899 Other long term (current) drug therapy; Z79.631 Long term (current) use of antimetabolite agent
CPT/HCPCS: 36415; 82565; 84450; 84460; 85025; 85652; 86140

== ENCOUNTER 2025-07-22 07:48 | Outpatient (REF) | payer MEDICARE, SELFPAY ==
--- NOTE | ~2025-07-22 | CT_ITS ---
EXAMINATION: CT ABDOMEN PELVIS ANGIOGRAPHY WITH IV CONTRAST HISTORY: I71.43 - Infrarenal abdominal aortic aneurysm, without rupture COMPARISON: Comparison is made with the prior examination dated 06/23/2024. TECHNIQUE: CT angiogram of the abdomen was performed following administration of 80 mL Omnipaque 350 using standard departmental protocol. Coronal and sagittal reformatted images were generated and reviewed. This CT exam was performed with one or more of the following dose reduction techniques: automated exposure control, adjustment of the mA and/or kV according to patient size, use of iterative reconstruction technique. DLP: 322 mGy-cm FINDINGS: LOWER CHEST: The visualized lung bases are clear. There is no pleural effusion. CARDIOVASCULATURE: The heart is normal in size. There is no pericardial effusion. LIVER: The liver is normal in size and contour. Again seen is a probable 1.7 cm cyst in the left lobe. The hepatic and portal veins are patent. GALLBLADDER / BILE DUCTS: The gallbladder is unremarkable. There is no intra or extrahepatic biliary ductal dilatation. SPLEEN: The spleen is normal in size. No focal splenic lesion is identified. PANCREAS: The pancreas is unremarkable in appearance. ADRENAL GLANDS: Within normal limits. KIDNEYS/RETROPERITONEUM: No renal calculi are identified. There is no hydronephrosis. There is a probable 1.3 cm cyst at the upper pole of the right kidney. LYMPH NODES: No abdominal lymphadenopathy. VASCULATURE: Again seen is an aortobiiliac stent graft within the abdominal aortic aneurysm. There is a large amount of thrombus within the stent graft as seen previously. The [place] abdominal aortic aneurysm measures up to 6.2 cm in diameter which has increased since the prior study (previously 5.7 cm). Again seen is hyperdensity posterior to the stent graft at the level of the aortic bifurcation which may represent an endoleak versus herniation of the stent graft wall. 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 The superior mesenteric artery is patent. There are single renal arteries. There is a mild stenosis of the origin of the right renal artery. The bilateral common and external iliac arteries are patent. MESENTERY/PERITONEUM: No free fluid. No masses. There is no free intraperitoneal gas. STOMACH: Again seen is a large hiatal hernia. SMALL BOWEL: The visualized small bowel is normal in caliber. COLON: The visualized portion of the colon is unremarkable. APPENDIX: The appendix is not visualized. URINARY BLADDER: The urinary bladder is unremarkable. UTERUS: The uterus is unremarkable. BONES / SOFT TISSUES: There is severe degenerative disc disease of the spine. CT/CT angio abdomen pelvis IMPRESSION: 1. 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 The [place] abdominal aorta now measures up to 6.2 cm in diameter which is increased since the prior study. Findings are concerning for an endoleak. This study was not tailored to evaluate for endoleak. 2. Again seen is hyperdensity posterior to the stent graft at the level of the aortic bifurcation. This could represent an endoleak versus herniation of the stent graft wall. 3. Large hiatal hernia. Electronically signed by: Brandon Shields MD 07/22/2025 10:[address] [facility]
[2025-07-22 08:03] LABS: MANUAL DIFF FLAG NO
[2025-07-22 08:35] LABS: Hematocrit 44.3 % (37.0-47.0); Hemoglobin 14.0 g/dl (12.0-16.0); Imm Gran Abs Auto 0.03 X10*3/uL (0.00-0.03); Imm Gran Pct Auto 0.4 % (0.0-0.4); Lymphocytes Absolute Auto 1.3 X10*3/uL (1.2-4.9); Mean Corpuscular HGB Conc 31.6 g/dl (31.0-35.0); Mean Corpuscular Hemoglobin 32.6 pg (27.0-33.0); Mean Corpuscular Volume 103.0 fL (80.0-98.0); NRBC Abs Auto 0.000 X10*3/uL (0.0-0.012); NRBC Pct Auto 0.0 /100WBC (0.0-0.2); Platelet Count 126 X10*3/uL (160-400); Red Blood Count 4.30 X10*6/uL (4.20-5.50); White Blood Count 7.7 X10*3/uL (4.8-10.8)
[2025-07-22 08:46] LABS: Alanine Aminotransferase 19 U/L (0-31); Albumin Level 3.9 g/dL (3.5-5.0); Alkaline Phosphatase 88 U/L (39-117); Anion Gap 10 (12-20); Aspartate Amino Transferase 25 U/L (5-31); Blood Urea Nitrogen 15 mg/dL (9-16); Calcium 9.7 mg/dL (8.4-10.2); Carbon Dioxide 26 mmol/L (22-29); Chloride 107 mmol/L (96-108); Cholesterol 108 mg/dL (<200); Estimated Glomerular Filt Rate > 60; HDL Cholesterol 55 mg/dL (>40); Potassium 5.0 mmol/L (3.3-5.1); Sodium 138 mmol/L (135-145); Total Protein 6.4 g/dL (6.5-8.0); Triglycerides 67 mg/dL (<150)
[2025-07-22] MEDS: iohexoL 350 MG/ML 100 ML INFUS..BTL 80 ML IV (10:17)
== END 2025-07-22 07:49 | disposition home or self-care (01) ==
LOC: HO.CT 07:48
PROVIDERS: Internal Medicine Rheumatology; PCP Internal Medicine; Visit Provider Surgery Vascular Surgery
DX: Z00.00 Encounter for general adult medical examination without abnormal findings (principal); I71.43 Infrarenal abdominal aortic aneurysm, without rupture; J44.9 Chronic obstructive pulmonary disease, unspecified; M81.0 Age-related osteoporosis without current pathological fracture; Z79.60 Long term (current) use of unspecified immunomodulators and immunosuppressants
CPT/HCPCS: 36415; 74174; 80053; 80061; 85025; 85652; 86140; Q9967

== ENCOUNTER → 2025-07-22 08:06 | Outpatient (BNV) | payer MEDICARE, SELFPAY | PROVIDERS: PCP Internal Medicine; Visit Provider Radiology Diagnostic Radiology | DX: K44.9 Diaphragmatic hernia without obstruction or gangrene (principal); Z95.828 Presence of other vascular implants and grafts | CPT/HCPCS: 74174 ==

== ENCOUNTER 2025-08-13 13:53 | Outpatient (AMB) | payer MEDICARE, SELFPAY ==
[2025-08-13 13:56] VITALS: BMI 23.3
--- NOTE | 2025-08-13 13:56 | A.OFFVIS_ITS ---
Vital Signs 08/13/25 13:56 Height 5 ft 4 in Weight 136 lb BMI 23.3 Intake Visit Reasons: 1 yr follow up CTA Abd/pelvis 07/22/25 Intake Note: 1 yr follow up CTA Abd/pelvis 07/22/25 for AAA w/ hx of EVAR 08/30/2020. NO complaints Application Development Director Required: No Accompanied by: Self / Same As Patient Allergies alendronate sodium (Fosamax) Adverse Reaction (Unknown, Verified 08/13/25 13:58) syncope HPI HPI 1 yr follow up CTA Abd/pelvis 07/22/25: Details: The patient is an 80-year-old female presenting for an annual surveillance follow up of her aortic aneurysm. She is five years status post aortic endograft placement. The patient reports she has been doing well and denies any changes in her health. She now presents for routine follow-up with CT angiogram. [facility] Medical History Vitamin D deficiency Annual physical exam DDD (degenerative disc disease), cervical Seasonal allergies Rheumatoid arthritis NSTEMI (non-ST elevated myocardial infarction) On beta kristen at home Smoking Atherosclerotic cardiovascular disease AAA (abdominal aortic aneurysm) without rupture Osteoporosis Surgical History Hx of cataract surgery History of abdominal aortic aneurysm (AAA) repair (~08/30/20) Hx of endoscopy H/O left wrist surgery History of hand surgery Family History Father No problems noted. Mother No problems noted. Social History Household Members: None Housing: Condominium Are you a primary housekeeper child care to a significant other at home: No Do you presently have visiting nurse or other home services: No Alcohol intake: current Alcohol intake frequency: holidays/special occasions only Patient Tobacco Use Status: Current everyday Tobacco user Tobacco use type: Cigarette Cigarette Packs Per Day: 0.5 Cigarettes Per Day: 10.0 Years Smoked: 60 e-Cigarette/Vaping Use: Never Used Second Hand Smoke Exposure: No service: No Current occupational status: retired Cognitive needs: No Hearing needs: No Vision needs: Yes Review of Systems Const All systems reviewed & are unremarkable except as noted in HPI and below Reports no additional complaints ENT Reports Normal hearing present Card Denies chest pain, Denies chest pain at rest, Denies chest pain with activity and Denies pedal edema Resp Denies cough GI Denies abdominal pain Musc Denies abnormal gait, Denies muscle cramps and Denies radiating pain into limb Skin/Breast Denies skin ulcer and Denies wounds Neuro Reports Normal hearing present and Denies abnormal gait Psych Reports no additional complaints Physical Exam Vital Signs: BMI result Body Mass Index 23.3 Const General: cooperative, healthy appearing and comfortable Orientation/consciousness: oriented to person, oriented to place and oriented to time HEENT Head: Yes normal to inspection Neck Neck: Yes normal visual inspection Carotids: no bruits Chest Chest palpation & inspection: normal inspection of the chest Resp Effort & Inspection: normal respiratory effort and able to speak in complete sentences Auscultation: clear to auscultation bilaterally, no crackles, no rales, no rhonchi and no wheezes Cardio Rate: regular rate Rhythm: regular rhythm Heart sounds: S1 normal heart sound present and S2 normal heart sound present Bruits: no carotid bruits Peripheral pulses: Peripheral pulses 2+ throughout GI Inspection: Yes normal to inspection Skin Wounds: no wounds Hair: normal Neuro General: oriented to person, oriented to place and oriented to time Cranial nerves: Yes CN's II-XII intact bilaterally and Yes Normal hearing present Cognition (Neuro): normal cognition Motor exam (neuro): 5/5 motor strength present throughout Extrem Other: venous exam: No significant superficial varicosities or spider telangiectasias, minimal edema General: No clubbing, No cyanosis and No edema Psych Appearance: grossly normal Mental Status: mental status grossly normal Speech and movement: Normal speech and movement present Results Reviewed Results Reviewed: CT dated 07/22/2025 demonstrates appropriately placed endograft. There is question of increasing aneurysm sac. There is no contrast seen within the sac. There was a question of an endoleak although not visualized. Assessment & Plan Assessment & Plan (1) AAA (abdominal aortic aneurysm) without rupture: Comment: 08/30/2020 - endovascular aneurysm repair with Endologix AFX device, f/u Dr Zapata Code(s): I71.4 - Abdominal aortic aneurysm, without rupture Category: Medical Qualifiers: Abdominal aorta location: infrarenal aorta Qualified Code(s): I71.43 - Infrarenal abdominal aortic aneurysm, without rupture Plan: In short patient has a stable aortic endograft. We did discuss the findings and I did suggest a short interval follow-up. Patient politely refused due to her co-pay for CT angiogram. We did agree on a 1 year follow-up. Should there be any interval issues happy to see her back sooner. Thank you for allowing us to assist in her care. If there are any questions or concerns please do not hesitate to contact us. Orders: Orders Creatinine 1 Year I71.43 - Infrarenal abdominal aortic aneurysm, without rupture Blood Urea Nitrogen 1 Year I71.43 - Infrarenal abdominal aortic aneurysm, without rupture CT angio abdomen pelvis 1 Year I71.43 - Infrarenal abdominal aortic aneurysm, without rupture Coding Level of Care Code Est Pt Level 4 (57870) Diagnoses Infrarenal abdominal aortic aneurysm (AAA) without rupture I71.43 Abdominal aorta location: infrarenal aorta
--- OUTSIDE RECORDS SUMMARY | 2025-08-13 21:09 | XMS_ITS | Patient Health Record ---
Author Organization [facility] Address [address] [place] [address] Care Team Providers Care Production Service Manager Name Role Phone Akil Starks MD Primary Care Provider GraysonReba Valderrama Unavailable [phone] Reason For Referral No Information Medications Medication [...] Status W/U Status Risk Notes Problem Arthralgia (39081929) Arthralgia (719.40) Active confirmed Problem Rheumatoid arthritis (87586867) Arthriis - Rheumatoid (714.0) Active confirmed Problem Hallux valgus (763039563) Hallux Valgus (735.0) Active confirmed Problem Hammer toe (737988819) Hammer toe (735.4) Active confirmed Problem Pain in limb (69294166) Pain in Limb (729.5) Active confirmed Plan Of Treatment Pending Test Test Name Order Date X ray : Foot, left 3V 04/29/2012 X ray : Foot, right 3V 04/29/2012 Insurance Providers Payer Name Payer Address Payer Phone Subscriber Number Group Number Insured Name Patient Relationship to Insured Coverage Start Date Coverage End Date Local [employer] [address] [place], [place] [id number] [phone] [id number] Liza Jain Self - patient is the insured Medicare National [employer] [address] [place] [address] [id number] Liza Jain Self - patient is the insured Medical (General) History Medical History History ICD Code Arthritis osteoporosis measles mumps chicken pox rheumatoid arthritis
--- OUTSIDE RECORDS SUMMARY | 2025-08-13 21:09 | XMS_ITS | Patient Health Record ---
Author Organization [facility] Address [address] [place] [address] Care Team Providers Care Assurance Assistant Name Role Phone Annie Bocanegra MD Primary Care Provider Brandon Arriaga Unavailable [phone] MARY BLANCA Unavailable Unavailable Reason For Referral No Information Medications Medication SIG (Take, Route, Frequency, Duration) Notes Start Date End Date Status Omeprazole 20 MG Capsule Delayed Release TAKE ONE CAPSULE BY MOUTH ONCE DAILY Oral Once a day Active Aspir-Low 81 MG Tablet Delayed Release TAKE ONE TABLET BY MOUTH ONCE DAILY Oral; Duration: 90 Active Atorvastatin Calcium 80 MG Tablet TAKE ONE TABLET BY MOUTH EVERY DAY Oral; Duration: 30 Active Metoprolol Tartrate 25 MG Tablet 1 tablet with food Orally Twice a day Active Orencia Active Folic Acid Active Calcium Active Social History Tobacco Use: Social History Observation Description Date Details (start date - stop date) Current Smoker NA - NA Social History Drugs/Alcohol: Social Info Question Answer Notes Alcohol Screen Did you have a drink containing alcohol in the past year? Yes How often did you have a drink containing alcohol in the past year? Never (0 point) How many drinks did you have on a typical day when you were drinking in the past year? 1 or 2 drinks (0 point) Points 0 Interpretation Negative Tobacco Use: Social Info Question Answer Notes Tobacco Use/Smoking Patient is a current smoker How often do you smoke cigarettes? every day How many cigarettes a day do you smoke? 6-10 Additional Details Category Social Info Options Details Miscellaneous: Marital status: Occupation: retired Section Notes: Very occasional glass of win e at dinner; smokes 5-10 cigs QD Problems Problem Type SNOMED Code ICD Code Onset Dates Problem Status W/U Status Risk Notes Problem Acute gastric ulcer with hemorrhage (64442263) Acute gastric ulcer with hemorrhage (K25.0) Active confirmed Plan Of Treatment No Information Insurance Providers Payer Name Payer Address Payer Phone Subscriber Number Group Number Insured Name Patient Relationship to Insured Coverage Start Date Coverage End Date [facility] [address] [place] [phone] [id number] ARTUR RODRIGUEZ Self - patient is the [...]
== END 2025-08-13 14:18 | disposition home or self-care (01) ==
LOC: HO.HVS 13:54
PROVIDERS: PCP Internal Medicine; Visit Provider Surgery Vascular Surgery
DX: I71.43 Infrarenal abdominal aortic aneurysm, without rupture (principal)
CPT/HCPCS: 99214

== ENCOUNTER → 2025-08-13 13:53 | Outpatient (BNVA) | payer MEDICARE, SELFPAY | PROVIDERS: PCP Internal Medicine; Visit Provider Surgery Vascular Surgery | DX: I71.43 Infrarenal abdominal aortic aneurysm, without rupture (principal); Z95.828 Presence of other vascular implants and grafts | CPT/HCPCS: 99212 ==